=== PATIENT | male | born 1955 | race Caucasian/White ===

== ENCOUNTER 2016-11-14 11:19 | Inpatient (IN) ==
[~2016-11-14 11:19] MED LIST: ATROPINE SYRINGE IV ONE
--- NOTE | 2016-11-14 11:31 | ED EKG INTERP ---
EKG Interpretation - EKG Time of EKG reading by physician:: 11:27 EKG Read and Signed by:: Ananth Cabrera EKG Interpretation (*Must complete 3 of following elements*): Abnormal Rate: 100 Rhythm: NSR QRS: other (POSS LEFT ATRIAL ENLARGEMENT, NONSPECIFIC T WAVE ABNORMALITY, PROLONGED QT) Attestation - Scribe Verification/Attestation Scribe:: Idalia Antonio Acting as Scribe for:: Ananth Cabrera Scribe documention review:: This chart was documented by a scribe and accurately reflects the service the provider performed and the decisions made by the provider. Physician Attestation - Physician Attestation I, the provider, attest to the following statement:: Ananth Cabrera Physician documentation Attestation:: This documentation recorded by the scribe accurately reflects the service I personally performed and the decisions made by me.
[2016-11-14] MEDS ORDERED: DUONEB (A & A) INH ONE (12:17)
[2016-11-14 12:47] LABS: ALBUMIN 4.2 g/dL (3.5-5.0); POTASSIUM 4.5 mmol/L (3.5-5.1); TOTAL BILIRUBIN 1.42 mg/dL (0.20-1.00); TOTAL PROTEIN 7.6 g/dL (6.3-8.3)
[2016-11-14 12:48] LABS: BASO% 0.1 % (0.0-0.8); EOS% 0.7 % (0.0-10.0); HEMATOCRIT 34.8 % (42.0-52.0); HEMOGLOBIN 11.1 g/dL (14.0-18.0); IMM GRAN# 0.06 X1000 (0.0-0.04); IMM GRAN% 0.4 % (0.0-0.5); LYMPH# 0.75 X1000 (1.2-3.4); LYMPH% 5.4 % (20.5-51.1); MCH 27.7 PG (27-31); MCHC 31.9 g/dL (33-37); MCV 86.8 FL (81-99); MONO# 0.64 X1000 (0.11-0.59); MONO% 4.6 % (1.7-9.3); MPV 12.8 FL (7.4-10.4); NEUT% 88.8 % (42.2-75.2); PLT 202 X1000 (130-400); RBC 4.01 XMIL (4.7-6.1)
[2016-11-14 13:11] LABS: MANUAL DIFF NEEDED? NO
[2016-11-14] MEDS ORDERED: NITROGLYCERIN TOP ONE (13:26)
[2016-11-14] MEDS ORDERED: LASIX IV ONE ×2 (13:28→19:40)
--- NOTE | 2016-11-14 14:19 | PROVIDER DOCUMENTATION ---
HPI-General Adult - General Chief Complaint: Shortness of Breath Stated Complaint: SOB Time Seen by Provider: 11/14/16 11:54 Source: patient Allergies/Adverse Reactions: Patient Allergies Allergy/AdvReac Type Severity Reaction Status Date / Time lisinopril Allergy DIZZINESS Verified 11/14/16 12:07 lorazepam Allergy tachycardia Verified 11/14/16 12:07 morphine AdvReac Severe HOT AND Verified 11/14/16 12:07 FLUSHING aspirin AdvReac Mild BLEEDING Verified 11/14/16 12:07 atorvastatin calcium * AdvReac Mild DIARRHEA Verified 11/14/16 12:07 [From Lipitor] AND DIZZINESS carvedilol AdvReac Mild INCREASED Verified 11/14/16 12:07 HEART RATE codeine AdvReac NAUSEA/VOMI Verified 11/14/16 12:07 TING metformin AdvReac NAUSEA/VOMI Verified 11/14/16 12:07 TING sitagliptin phosphate * AdvReac FLUSHING Verified 11/14/16 12:07 [From Januvia] Home Medications: Hydrocodone/Acetaminophen [[place] 10-325 Tablet] 1 tab PO BID PRN PRN 11/17/15 Alprazolam [Xanax] 1 mg PO BID PRN PRN 05/14/16 Potassium Chloride E.r. [Klor-Con] 10 meq PO BID 05/14/16 Nitroglycerin [Nitrostat] 0.4 mg SL DIRECTED PRN 06/19/16 Prednisone 5 mg PO DAILY 06/19/16 Albuterol [Albuterol Neb] 1 puff INH Q8H PRN PRN 11/04/16 Metoprolol [Lopressor] 25 mg PO BID 11/14/16 - History of Present Illness -Gen Adult Nature of Presenting Problems: Recently discharged from hospital ( 11/09)where he was admitted for pneumonia , CHF, paroxysmal Atrial fibrillation. Tells me he was not on antibiotics after d/ c. Reports that metoprolol was increased when seen 11/12 in office and he began to have increasing shortness of breath after that . Location of Pain/Injury: reports: none Associated Symptoms: reports: cough (mild.) Similar Symptoms Previously?: Yes Review of Systems - Adult - REVIEW OF SYSTEMS - ADULT Constitutional: reports: see HPI. denies: chills, fever Eyes: reports: no symptoms reported Ears, Nose, Mouth & Throat: reports: no symptoms reported Cardiovascular: denies: chest pain Respiratory: reports: shortness of breath, wheezing Gastrointestinal: reports: no symptoms reported Genitourinary: reports: no symptoms reported Musculoskeletal: reports: no symptoms reported Integumentary: reports: no symptoms reported Neurological: reports: no symptoms reported Psychiatric: reports: no symptoms reported Past History - Adult - PAST MEDICAL HISTORY-ADULT Review of Records: reports: Old Records Reviewed, Nursing Assessment Review, Medications Reviewed Major Childhood Illnesses: reports: denies history Cardiovascular: reports: CHF, HTN, hyperlipidemia Respiratory: reports: sleep apnea Gastrointestinal: reports: GERD Genitourinary: reports: kidney disease Psychiatric: reports: anxiety, depression Endocrine/Immune: reports: Diabetes, thyroid disorder (hypothyroidism with TSH of 75 recent admit) Other Conditions: reports: denies history - PRIOR SURGERIES/PROCEDURES Surgical/Procedure History: reports: appendectomy, CABG, other (heart) - PRIOR HOSPITALIZATIONS Prior Hospitalizations: reports: for similar symptoms - IMMUNIZATION STATUS Childhood Immunizations: See Nurse Assessment Flu Vaccine: See Nurse Assessment - FAMILY HISTORY Family History: reviewed, not pertinent Physical Exam-General - PHYSICAL EXAM-ADULT Initial Vital Signs Reviewed: Yes - CONSTITUTIONAL General Appearance: alert, mild distress (mild increased work of breathing) - EYES Eyes: PERRL/EOMI - HEAD, EARS, NOSE, MOUTH & THROAT HENMT: normal ENT inspection, pharynx normal - NECK Neck: non-tender, full range of motion, supple, normal inspection - RESPIRATORY Respiratory: chest non-tender, wheezing (scattered expiratory wheezes) - CARDIOVASCULAR Cardiovascular: regular rate, rhythm, no JVD, no murmur - GASTROINTESTINAL (ABDOMEN) Abdominal Exam: normal bowel sounds, non tender, soft - GENITOURINARY Male Genitalia: deferred - LYMPHATIC Lymphatic: no adenopathy - MUSCULOSKELETAL Back Exam: normal inspection, no CVA tenderness Extremity: non-tender, normal inspection, no pedal edema - NEUROLOGIC Neurologic: grossly normal - PSYCHIATRIC Psych/Mental Status: normal mood/affect Progress - PLAN OF CARE/RESULTS Progress/Plan/Lab Results: Laboratory Tests 11/14/16 11/14/16 11/14/16 11:48 11:48 11:48 WBC 13.89 H RBC 4.01 L Hgb 11.1 L Hct 34.8 L MCV 86.8 MCH 27.7 MCHC 31.9 L RDW Std Deviation 18.5 H Plt Count 202 MPV 12.8 H Immature Gran % (Auto) 0.4 Neut % (Auto) 88.8 H Lymph % (Auto) 5.[address] [place] % (Auto) 4.6 Eos % (Auto) 0.7 Baso % (Auto) 0.1 Immature Gran # (Auto) 0.06 H Neut # (Auto) 12.32 H Lymph # (Auto) 0.[address] [place] # (Auto) 0.64 H Eos # (Auto) 0.10 Baso # (Auto) 0.02 Segmented Neutrophils Not Reportable Sodium 134 L Potassium 4.5 Chloride 100 Carbon Dioxide 20 L Anion Gap 14 BUN 36 H Creatinine 2.5 H Estimated GFR/1.73 m2 27 BUN/Creatinine Ratio 14 Glucose 218 H Calculated Osmolality 283 Calcium 9.0 Total Bilirubin 1.42 H AST 18 ALT 16 Alkaline Phosphatase 90 Troponin T Cgy-F-Irbizccgujn Pept 6781 H Total Protein 7.6 Albumin 4.2 Globulin 3.4 Albumin/Globulin Ratio 1.2 Plasma Lactate 11/14/16 11/14/16 11:48 12:50 WBC RBC Hgb Hct MCV MCH MCHC RDW Std Deviation Plt Count MPV Immature Gran % (Auto) Neut % (Auto) Lymph % (Auto) [place] % (Auto) Eos % (Auto) Baso % (Auto) Immature Gran # (Auto) Neut # (Auto) Lymph # (Auto) [place] # (Auto) Eos # (Auto) Baso # (Auto) Segmented Neutrophils Sodium Potassium Chloride Carbon Dioxide Anion Gap BUN Creatinine Estimated GFR/1.73 m2 BUN/Creatinine Ratio Glucose Calculated Osmolality Calcium Total Bilirubin AST ALT Alkaline Phosphatase Troponin T 0.017 Zqk-T-Pqanbedihov Pept Total Protein Albumin Globulin Albumin/Globulin Ratio Plasma Lactate 1.8 Vital Signs Temp Pulse Resp BP Pulse Ox 11/14/16 12:47 95 H 15 96 11/14/16 12:18 97 H 37 H 120/77 92 L 11/14/16 11:28 98.1 F 92 H 22 118/69 100 lisinopril Allergy (Verified 11/14/16 12:07) DIZZINESS lorazepam Allergy (Verified 11/14/16 12:07) tachycardia morphine Adverse Reaction (Severe, Verified 11/14/16 12:07) HOT AND FLUSHING aspirin Adverse Reaction (Mild, Verified 11/14/16 12:07) BLEEDING ONLY WHEN HE TAKES THE 325MG, STATES THAT HE CAN TAKE 81MG atorvastatin calcium * [From Lipitor] Adverse Reaction (Mild, Verified 11/14/16 12:07) DIARRHEA AND DIZZINESS carvedilol Adverse Reaction (Mild, Verified 11/14/16 12:07) INCREASED HEART RATE codeine Adverse Reaction (Verified 11/14/16 12:07) NAUSEA/VOMITING metformin Adverse Reaction (Verified 11/14/16 12:07) NAUSEA/VOMITING sitagliptin phosphate * [From Januvia] Adverse Reaction (Verified 11/14/16 12:07 ) FLUSHING Omeprazole [Prilosec] 20 mg PO DAILY@0700 #0 capsule 11/14/14 Hydrocodone/Acetaminophen [[place] 10-325 Tablet] 1 tab PO BID PRN PRN 11/17/15 Alprazolam [Xanax] 1 mg PO BID PRN PRN 05/14/16 Potassium Chloride E.r. [Klor-Con] 10 meq PO BID 05/14/16 Furosemide [Lasix] 40 mg PO BID #0 tablet 05/20/16 Nitroglycerin [Nitrostat] 0.4 mg SL DIRECTED PRN 06/19/16 Prednisone 5 mg PO DAILY 06/19/16 Spironolactone [Aldactone] 25 mg PO DAILY #0 tablet 06/24/16 Albuterol [Albuterol Neb] 1 puff INH Q8H PRN PRN 11/04/16 Levothyroxine [Synthroid] 100 microgm PO DAILY@0700 #0 tablet 11/09/16 Metoprolol [Lopressor] 25 mg PO BID 11/14/16 Laboratory 11/14/16 11/14/16 11/14/16 12:50 11:48 11:48 WBC RBC Hgb Hct MCV MCH MCHC RDW Std Deviation Plt Count MPV Immature Gran % (Auto) Neut % (Auto) Lymph % (Auto) [place] % (Auto) Eos % (Auto) Baso % (Auto) Immature Gran # (Auto) Neut # (Auto) Lymph # (Auto) [place] # (Auto) Eos # (Auto) Baso # (Auto) Segmented Neutrophils Sodium Potassium Chloride Carbon Dioxide Anion Gap BUN Creatinine Estimated GFR/1.73 m2 BUN/Creatinine Ratio Glucose Calculated Osmolality Calcium Total Bilirubin AST ALT Alkaline Phosphatase Troponin T 0.017 Fcg-S-Spaibpamhxr Pept 6781 H Total Protein Albumin Globulin Albumin/Globulin Ratio Plasma Lactate 1.8 11/14/16 11/14/16 11:48 11:48 WBC 13.89 H RBC 4.01 L Hgb 11.1 L Hct 34.8 L MCV 86.8 MCH 27.7 MCHC 31.9 L RDW Std Deviation 18.5 H Plt Count 202 MPV 12.8 H Immature Gran % (Auto) 0.4 Neut % (Auto) 88.8 H Lymph % (Auto) 5.[address] [place] % (Auto) 4.6 Eos % (Auto) 0.7 Baso % (Auto) 0.1 Immature Gran # (Auto) 0.06 H Neut # (Auto) 12.32 H Lymph # (Auto) 0.[address] [place] # (Auto) 0.64 H Eos # (Auto) 0.10 Baso # (Auto) 0.02 Segmented Neutrophils Not Reportable Sodium 134 L Potassium 4.5 Chloride 100 Carbon Dioxide 20 L Anion Gap 14 BUN 36 H Creatinine 2.5 H Estimated GFR/1.73 m2 27 BUN/Creatinine Ratio 14 Glucose 218 H Calculated Osmolality 283 Calcium 9.0 Total Bilirubin 1.42 H AST 18 ALT 16 Alkaline Phosphatase 90 Troponin T Wnb-A-Zhncrgcbynm Pept Total Protein 7.6 Albumin 4.2 Globulin 3.4 Albumin/Globulin Ratio 1.2 Plasma Lactate - XRAY 1 XRAY Study: Chest (B increased markings looks consistent with pulmonary edema, cannot r/o persistent pneumonia) - CONSULTS/PCP/HOSPITALIST Notification #1 *Consult/PCP/Hospitalist*: Dr Meier Time Discussed: 13:15 Consult Disposition: Admit - CHANGE OF SHIFT REPORT (ED Provider) Tentative Impression of Patient: CHF exaserbation Departure - Departure Time of Disposition Order: 13:15 DIAGNOSIS: Acute exacerbation of congestive heart failure Disposition: ADMITTED INPATIENT 09 Certified Medical Emergency: Emergent Condition: Fair
--- NOTE | 2016-11-14 15:07 | Diag Imaging Result Document ---
PROCEDURE NAME: CHEST-2 VIEWS - 11/14/2016 TWO VIEWS OF THE CHEST: FINDINGS: There is pulmonary edema which is worse in appearance particularly over the right lung than on 11/07/2016. There is cardiomegaly. There is pleural thickening versus loculated effusion laterally on the right. IMPRESSION: Worsened pulmonary edema.
[2016-11-14] MEDS ORDERED: NITROGLYCERIN SL PRN (19:40)
[2016-11-14] MEDS: KLOR-CON PO SCH (20:58)
[2016-11-14] MEDS: XANAX PO PRN (22:34)
[2016-11-14] MEDS: NORCO-7.5 PO PRN (22:34)
[2016-11-14] MEDS: ALBUTEROL NEB INH PRN (22:50)
--- NOTE | 2016-11-15 06:08 | EKG Report ---
Test Performed on : 11/14/2016 11:26:02 AM Test Reason : CP Blood Pressure : / mmHG Vent. Rate : 100 BPM Atrial Rate : 100 BPM P-R Int : 190 ms QRS Dur : 102 ms QT Int : 370 ms P-R-T Axes : 042 057 075 degrees QTc Int : 477 ms Normal sinus rhythm. Possible Left atrial enlargement Nonspecific T wave abnormality Prolonged QT Abnormal ECG When compared with ECG of 04-NOV-2016 18:05, No significant change was found Unconfirmed Result
[2016-11-15 06:16] LABS: MANUAL DIFF NEEDED? NO
[2016-11-15 06:20] LABS: BASO% 0.3 % (0.0-0.8); EOS# 0.25 X1000 (0.0-0.7); EOS% 2.4 % (0.0-10.0); HEMATOCRIT 33.8 % (42.0-52.0); HEMOGLOBIN 10.4 g/dL (14.0-18.0); IMM GRAN# 0.04 X1000 (0.0-0.04); IMM GRAN% 0.4 % (0.0-0.5); LYMPH# 1.58 X1000 (1.2-3.4); LYMPH% 15.1 % (20.5-51.1); MCHC 30.8 g/dL (33-37); MCV 87.8 FL (81-99); MONO% 4.8 % (1.7-9.3); MPV 12.1 FL (7.4-10.4); PLT 182 X1000 (130-400); RBC 3.85 XMIL (4.7-6.1)
[2016-11-15] MEDS: NORCO-7.5 PO PRN ×3 (06:36→22:53)
[2016-11-15] MEDS: SYNTHROID PO SCH (06:37)
[2016-11-15] MEDS: PRILOSEC PO SCH (06:37)
[2016-11-15 06:38] LABS: ALBUMIN 4.1 g/dL (3.5-5.0); CALCIUM 9.5 mg/dL (8.8-10.2); POTASSIUM 3.9 mmol/L (3.5-5.1); TOTAL BILIRUBIN 1.76 mg/dL (0.20-1.00); TOTAL PROTEIN 7.2 g/dL (6.3-8.3)
[2016-11-15] MEDS: ALBUTEROL NEB INH PRN ×3 (07:47→19:46)
[2016-11-15] MEDS: ALDACTONE PO SCH (09:26)
[2016-11-15] MEDS: PREDNISONE PO SCH (09:26)
[2016-11-15] MEDS: KLOR-CON PO SCH ×2 (09:26→20:18)
--- NOTE | 2016-11-15 09:27 | PROGRESS NOTE ---
DATE: 11/15/2016 The patient had for shortness of breath. He has acute exacerbation. He has some COPD, coronary artery disease, and has bronchitis, possible pneumonia. We will continue the IV antibiotics, continue the same management. He is wearing a Holter monitor. -6
[2016-11-15] MEDS: LEVAQUIN 500 MG/D5W 100 ML IV SCH (09:31)
--- NOTE | 2016-11-15 10:39 | HISTORY AND PHYSICAL ---
HISTORY: Mr. Yost who is a 61-year-old, white male with a known case of coronary artery disease who has gone into congestive heart failure, who has also intermittent atrial fibrillation and has recurrent pneumonia with mild COPD and hypothyroidism, he comes to the emergency room with severe shortness of breath, cough with expectoration. He was found to have an elevated white count on his CBC with anemia and had continuing renal failure. He had a persistent cough with expectoration and had bilateral basilar rales. A chest x-ray shows evidence of pulmonary edema. Hence, he was admitted for further management. Other details of personal, past, and family history are noncontributory, can be obtained from the previous chart. He has a history of coronary artery bypass surgery performed a little over 2 years ago. He had recurrent admissions here at [facility] for respiratory distress as well as chest pain and congestive heart failure. He is being evaluated by the coverstitch binder. He is a nonsmoker now. He does not drink. ALLERGIES: To lisinopril, lorazepam, morphine, aspirin, atorvastatin, and many other drugs. MEDICATIONS: Include levothyroxine 100 mcg, omeprazole, prednisone, potassium chloride, spironolactone, alprazolam, hydrocodone, nitroglycerin, albuterol inhaler, furosemide daily. REVIEW OF SYSTEMS: Other than shortness of breath and cough with expectoration, is noncontributory. PHYSICAL EXAMINATION: GENERAL: The patient is alert and oriented. VITAL SIGNS: Reveal temperature normal, pulse was 95 per minute and regular, respiratory rate 24 per minute, blood pressure 113/66. Temperature normal. HEENT: Head normocephalic. Pupils PERRLA. Fundus examination normal. Neck supple. JVP normal. ENT examination unremarkable. There is no evidence of lymphadenopathy, thyroid enlargement. EXTREMITIES: There is minimal leg edema. No calf tenderness. Pedal pulses well felt. BREAST EXAMINATION: Normal. CHEST: Reveals a midline scar from bypass surgery. Lungs reveal bilateral basal rales. PMI in the normal position. HEART: Sounds normal. No murmur, gallop, or rub noted. ABDOMEN: Nondistended. Hernial orifices normal. No guarding, rigidity, free fluid, masses, or organomegaly. Bowel sounds normal. RECTAL: Examination deferred. BI CONSULTANT: Higher functions normal. Cranial nerves normal. Motor and sensory system examination unremarkable. Deep tendon reflexes normal. Plantars downgoing. SKULL AND SPINE: Examination normal for age. No cerebellar signs or signs of meningeal irritation. LOCOMOTOR: Examination unremarkable. SKIN: Examination unremarkable. CLINICAL IMPRESSION: 1. Congestive heart failure. 2. Possible pneumonia. PLAN: Plan to get a cardiology consult. Start IV Levaquin on him.
[2016-11-15] MEDS ORDERED: LANOXIN PO SCH (11:15)
--- NOTE | 2016-11-15 12:02 | CONSULTATION ---
DATE OF CONSULTATION: 11/15/2016 HISTORY OF PRESENT ILLNESS: Mr. Yost is a 61-year-old, gentleman with a history of coronary artery disease, coronary artery bypass grafting in 2013, complicated by a LAD dissection intraoperatively with resultant ischemic cardiomyopathy. Last ejection fraction of 20-25%. Has had recurrent admissions with congestive heart failure. He was recently admitted with pneumonia. Patient is wearing a monitor and that has really revealed atrial flutter and supraventricular tachycardia, at times rates of 150-160 beats per minute. He has been tried on multiple medications in addition to amiodarone in the past. However, he has developed hyperthyroidism and he is not on that medication. He has had ventricular tachycardia in the past as well as paroxysmal atrial flutter/fibrillation. He comes in with increasing shortness of breath and palpitations. Patient was admitted with congestive heart failure. REVIEW OF SYSTEMS: A 14-point review of system was done. GI System: There is no history of nausea, vomiting, diarrhea. There is no history of hematemesis or melena. Central Nervous System: No focal weakness to suggest a CVA or TIA. System: There is no dysuria or hematuria. Respiratory System: There is no history of cough, expectoration, hemoptysis. There is no history of fevers or chills. PAST MEDICAL HISTORY: 1. Coronary artery disease, status post coronary artery bypass grafting in October of 2013 with GARRISON to left anterior descending artery, SVG to diagonal, SVG to RCA, subsequent dissection to the LAD. 2. Ischemic cardiomyopathy. 3. History of ventricular tachycardia. 4. Paroxysmal atrial flutter/fibrillation. 5. Congestive heart failure. Last ejection fraction of 20-25%. 6. Recurrent pneumonia. 7. Hypertension. 8. History of hyperthyroidism in the past, now hypothyroid on supplements. 9. A strong family history of coronary artery disease. Brother with MN at 34. Brother had stent placement at 58. 10. Gastroesophageal reflux disease. 11. Pleural effusions on 04/19/2016 with pneumonia and , large right pleural effusion at that time requiring drainage. 12. Depression. 13. Appendectomy. 14. Chronic renal insufficiency. 15. GI bleed in february 2016 significant external hemorrhoids HOME MEDICATIONS: Spironolactone, metoprolol, furosemide, potassium supplements , prednisone, Xanax. He is currently on Synthroid, Cozaar 25 mg a day. PHYSICAL EXAMINATION: Vital Signs: Blood pressure was 113/66. Cardiovascular System: Normal jugular venous pressure. There was no thyromegaly. There was no carotid bruit. First and second heart sounds heard. There was no S3 gallop. Respiratory System: Normal air entry. There were bilateral inspiratory crepitations. Abdomen: Soft, nontender. There was no guarding or rigidity. Bowel sounds were heard. Central Nervous System: Alert, oriented, and was moving all 4 extremities. Extremities: Examination of extremities revealed no pedal edema. HEENT: Atraumatic, normocephalic. Pupils were equal and reacting to light. LABORATORY EXAMINATIONS: Sodium 142, potassium 3.9, BUN 14, creatinine 2.3. ProBNP 6781. Last proBNP during recent hospitalization was 3000. Troponin negative as 0.017. ASSESSMENT AND PLAN: 1. Mr. Elva Yost is a 61-year-old, gentleman with a history of coronary artery disease, status post coronary artery bypass grafting, ischemic cardiomyopathy , paroxysmal atrial flutter/fibrillation, ventricular tachycardia in the past, hyperthyroidism - currently hypothyroid. He is admitted with congestive heart failure. He has had recurrent admissions with congestive heart failure as well as recurrent episodes of pneumonia in the last couple of years. As far as his ejection fraction is concerned, ejection fraction is 20 -25%. In addition, he is wearing a monitor and he has episodes of atrial flutter/ fibrillation going up to 150-160 beats per minute. He perceives these palpitations as well and has got recurrent episodes of heart failure. In the past, he was tried on valsartan/ saccubitril. However, he was intolerant to that. We will restart him on Cozaar 25 mg a day. 2. He has chronic renal insufficiency with a BUN of 40, creatinine 2.3. I will avoid digoxin at the present time. We will increase his Lopressor to 50 mg twice a day if he tolerates as far as blood pressure is concerned. 3. Recurrent atrial flutter. We will put him on Cardizem CD 180 mg for rate control. This is paroxysmal which he has and as an outpatient, we will set him up to see electrophysiology. 4. For stroke prophylaxis, he is not anticaogulated as in February 2016 he had signigicant gi bleed from hemoorhiods . Would recommeng GI work up 5. He is hypothyroid. In the past, has had hyperthyroidism. He had been on Tapazole in the past. We will check a TSH. 6. He has history of diabetes which has been stable. 7. His current electrocardiogram reveals normal sinus rhythm. Thank you for the consult. We will follow hospital course. ROBERTO
[2016-11-15] MEDS: COZAAR PO SCH (13:07)
[2016-11-15] MEDS: CARDIZEM CD PO SCH (13:07)
[2016-11-15] MEDS: XANAX PO PRN (18:12)
[2016-11-16] MEDS: NORCO-7.5 PO PRN ×3 (03:35→22:55)
[2016-11-16] MEDS: ALBUTEROL NEB INH PRN ×3 (03:38→20:09)
[2016-11-16] MEDS: XANAX PO PRN ×2 (06:01→19:50)
[2016-11-16] MEDS: SYNTHROID PO SCH (06:01)
[2016-11-16] MEDS: PRILOSEC PO SCH (06:01)
[2016-11-16 06:46] LABS: CALCIUM 9.6 mg/dL (8.8-10.2); POTASSIUM 4.1 mmol/L (3.5-5.1)
--- NOTE | 2016-11-16 09:19 | PROGRESS NOTE ---
DATE: 11/16/2016 SUBJECTIVE: Mr. Yost is feeling somewhat better. He is getting IV Lasix, IV antibiotics. He has CHF plus pneumonia. He is being seen by Dr. Coles. Physical exam is unchanged. He continues to have some basal rales at both lung bases. We are going to repeat his Chem-7 and chest x-ray in the morning.
[2016-11-16] MEDS: KLOR-CON PO SCH ×2 (10:04→19:50)
[2016-11-16] MEDS: COZAAR PO SCH (10:05)
[2016-11-16] MEDS: LEVAQUIN 500 MG/D5W 100 ML IV SCH (10:05)
[2016-11-16] MEDS: PREDNISONE PO SCH (10:05)
[2016-11-16] MEDS: ALDACTONE PO SCH (10:05)
[2016-11-16] MEDS: CARDIZEM CD PO SCH (10:05)
[2016-11-17] MEDS: KLOR-CON PO SCH ×3 (00:29→20:24)
[2016-11-17] MEDS: NORCO-7.5 PO PRN ×3 (05:43→22:55)
[2016-11-17] MEDS: ALBUTEROL NEB INH PRN ×4 (05:52→22:00)
[2016-11-17] MEDS: SYNTHROID PO SCH (06:11)
[2016-11-17] MEDS: PRILOSEC PO SCH (06:11)
[2016-11-17 06:41] LABS: MANUAL DIFF NEEDED? NO
[2016-11-17 06:50] LABS: BASO% 0.3 % (0.0-0.8); EOS# 0.34 X1000 (0.0-0.7); EOS% 3.1 % (0.0-10.0); HEMATOCRIT 33.7 % (42.0-52.0); HEMOGLOBIN 10.6 g/dL (14.0-18.0); IMM GRAN# 0.05 X1000 (0.0-0.04); IMM GRAN% 0.5 % (0.0-0.5); LYMPH# 1.94 X1000 (1.2-3.4); LYMPH% 17.6 % (20.5-51.1); MCH 27.9 PG (27-31); MCHC 31.5 g/dL (33-37); MCV 88.7 FL (81-99); MONO% 5.5 % (1.7-9.3); PLT 179 X1000 (130-400)
[2016-11-17 07:11] LABS: CALCIUM 9.6 mg/dL (8.8-10.2); POTASSIUM 4.2 mmol/L (3.5-5.1)
[2016-11-17] MEDS: ALDACTONE PO SCH (08:36)
[2016-11-17] MEDS: LEVAQUIN 500 MG/D5W 100 ML IV SCH (08:36)
[2016-11-17] MEDS: COZAAR PO SCH (08:37)
[2016-11-17] MEDS: PREDNISONE PO SCH (08:37)
[2016-11-17] MEDS: CARDIZEM CD PO SCH (08:37)
--- NOTE | 2016-11-17 08:41 | Diag Imaging Result Document ---
PROCEDURE NAME: CHEST-2 VIEWS - 11/17/2016 COMPARISON: 11/14/2016. FINDINGS: Interstitial edema appears to have improved slightly. There is stable linear atelectasis at the right lung base. Atelectasis versus fissural fluid at the right mid lung zone is unchanged. There is a stable loculated effusion at the periphery of the right lung versus pleural thickening. This is stable. No new consolidations are identified. Cardiac silhouette is stable. IMPRESSION: Suggestion of slight improvement of interstitial edema. Otherwise, stable chest.
--- NOTE | 2016-11-17 08:53 | PROGRESS NOTE ---
DATE: 11/17/2016 SUBJECTIVE: Mr. Yost had some pulmonary congestion again this morning. He was given Lasix earlier this morning and is getting it every day. His electrolytes status is stable. He had a chest x-ray done. He has gross congestive heart failure.
--- NOTE | 2016-11-17 08:53 | PROGRESS NOTE ---
DATE: 11/17/2016 SUBJECTIVE: Ms. Abraham was supposed to get a chest x-ray in the X-ray Department, and she refused to go there. She is getting a portable chest x-ray today. We will continue with the current management in the meantime. -5
[2016-11-17] MEDS: XANAX PO PRN ×2 (11:44→20:24)
[2016-11-17] MEDS: TOPROL XL PO SCH ×2 (16:42→20:24)
[2016-11-17] MEDS: LASIX IV SCH (18:12)
[2016-11-18] MEDS: NORCO-7.5 PO PRN ×2 (04:51→11:46)
[2016-11-18] MEDS: PRILOSEC PO SCH (06:20)
[2016-11-18] MEDS: SYNTHROID PO SCH (06:21)
[2016-11-18] MEDS: ALBUTEROL NEB INH PRN ×3 (06:24→15:21)
[2016-11-18] MEDS ORDERED: XANAX PO PRN (08:11)
--- NOTE | 2016-11-18 08:30 | PROGRESS NOTE ---
DATE: 11/18/2016 Mr. Yost is doing somewhat better. He is still very nervous. He thinks there is some problem with his bladder. He cannot urinate the right amount. He has done it only 1 time in the last more than 12 hours. His chest x-ray shows improvement. We will try to do the bladder scanning.
[2016-11-18] MEDS: COZAAR PO SCH (10:38)
[2016-11-18] MEDS: PREDNISONE PO SCH (10:38)
[2016-11-18] MEDS: KLOR-CON PO SCH (10:38)
[2016-11-18] MEDS: ALDACTONE PO SCH (10:38)
[2016-11-18] MEDS: LASIX IV SCH (10:38)
[2016-11-18] MEDS: TOPROL XL PO SCH ×2 (10:38→21:16)
[2016-11-18] MEDS: CARDIZEM CD PO SCH (10:39)
[2016-11-18] MEDS: LEVAQUIN 500 MG/D5W 100 ML IV SCH (10:49)
[2016-11-18 17:06] LABS: ALLEN TEST YES; BE -12.6 mmoll (-3.0-3.0); BLOOD TYPE ARTERIAL; DRAW SITE L RADIAL; METHB 1.6 % (0.0-1.5); O2(CT) 14.3 mL/dL (15.0-23.0); PCO2(98.6) 23 mmHg (35-45); PO2(98.6) 110 mmHg (60-100); SAMPLE BLOOD; SAO2 99.6 % (95.0-100.0); THB 10.5 g/dL (11.5-17.4); pH(98.6) 7.32 (7.35-7.45)
[2016-11-18 17:30] LABS: HEMATOCRIT 33.6 % (42.0-52.0); HEMOGLOBIN 10.3 g/dL (14.0-18.0); MCH 27.7 PG (27-31); MCHC 30.7 g/dL (33-37); MCV 90.3 FL (81-99); MPV 12.9 FL (7.4-10.4); RBC 3.72 XMIL (4.7-6.1)
[2016-11-18] MEDS ORDERED: NS 500 ML IV ONE (17:44)
[2016-11-18] MEDS ORDERED: NEO-SYNEPHRINE 50 MG in NS 250 ML IV SCH (17:45)
[2016-11-18 17:48] LABS: MODALITY CANNULA
[2016-11-18] MEDS ORDERED: D5W ONE (17:55)
[2016-11-18] MEDS ORDERED: DOPAMINE ONE (17:55)
[2016-11-18] MEDS ORDERED: DOPAMINE 400 MG/D5W 500 ML IV SCH (18:00)
[2016-11-18 18:17] LABS: ALBUMIN 4.4 g/dL (3.5-5.0); CALCIUM 8.9 mg/dL (8.8-10.2); MAGNESIUM 2.4 mg/dL (1.5-2.7); POTASSIUM 7.9 mmol/L (3.5-5.1); TOTAL BILIRUBIN 1.33 mg/dL (0.20-1.00); TOTAL PROTEIN 6.6 g/dL (6.3-8.3)
[2016-11-18] MEDS ORDERED: HUMULIN R ONE (18:17)
[2016-11-18] MEDS ORDERED: CALCIUM GLUCONATE ONE (18:17)
[2016-11-18] MEDS ORDERED: D50W SYRINGE IV ONE ×2 (18:17→23:00)
[2016-11-18] MEDS ORDERED: CALCIUM GLUCONATE IV PUSH ONE (18:17)
[2016-11-18] MEDS ORDERED: KAYEXALATE PO ONE (18:17)
[2016-11-18] MEDS ORDERED: HUMULIN R IV ONE ×2 (18:17→23:00)
[2016-11-18] MEDS ORDERED: D50W SYRINGE ONE (18:17)
[2016-11-18] MEDS ORDERED: ALBUTEROL NEB INH ONE ×3 (18:32→23:00)
[2016-11-18] MEDS ORDERED: SOLU-MEDROL IV ONE (18:38)
[2016-11-18] MEDS ORDERED: DIPRIVAN 1% ONE (18:49)
[2016-11-18] MEDS ORDERED: DIPRIVAN 1% 100 ML IV ONE (18:49)
[2016-11-18] MEDS: NS 1,000 ML ONE ×2 (18:51→18:57)
[2016-11-18] MEDS ORDERED: SODIUM BICARBONATE 8.4% IV ONE (19:00)
[2016-11-18] MEDS ORDERED: ATROPINE SYRINGE IV ONE (19:00)
[2016-11-18] MEDS ORDERED: ROCEPHIN 1 GM/NS 50 ML IV SCH (19:00)
[2016-11-18] MEDS ORDERED: VANCOMYCIN IV PER PHARMACY MISC SCH (19:15)
[2016-11-18] MEDS: ALBUTEROL 0.5% INH CONC FOR HYPERKALEMIA ONE ×2 (19:20→23:42)
[2016-11-18 19:27] LABS: CALCIUM 8.7 mg/dL (8.8-10.2); POTASSIUM 6.8 mmol/L (3.5-5.1)
[2016-11-18] MEDS: DOPAMINE 800 MG/D5W 500 ML IV SCH (19:30)
[2016-11-18] MEDS ORDERED: DIPRIVAN 1% 100 ML IV SCH (19:30)
--- NOTE | 2016-11-18 19:48 | PROGRESS NOTE ---
DATE: 11/18/2016 SUBJECTIVE: Mr. Yost is not doing well. The patient was bradycardic on the floor. Nurse called me. They had to call call. Patient was evaluated. Patient was bradycardic. He was complaining of some chest pain. The patient was diaphoretic. Patient also has pain in the lower back. The patient does have a strong history of coronary artery disease, congestive heart failure. The patient was acutely ill. We transferred patient to ICU. In the ICU his blood pressure was low. We gave him a fluid challenge. I recommended Federico- Synephrine. A nurse talked to his emergency service restorer who recommended dopamine. The patient was bradycardic. When I evaluated, he was complaining of pain in the lower back. The patient was minimally short of breath, but O2 saturation was satisfactory. The patient was bradycardic. Patient is on Cardizem and beta chandu. I ordered a blood test and we did EKG. OBJECTIVE: Vital Signs: Noted. Blood pressure was low. Neck: Supple. No JVD. Lungs: Bibasilar crepitations. A few rales. Cardiovascular: S1 and S2, bradycardia. Abdomen: Soft, globular. Bowel sounds present. Patient does have a few bruise calvillo at the site of Lovenox injection. Extremities: No cyanosis, clubbing. Minimal swelling. No acute DVT. The patient was alert, awake, answering questions fair. LABORATORY DATA: Revealed sodium 125, potassium 7.9, chloride 91, CO2 was 14, blood sugar was 413. ProBNP was 11,754, leukocytosis count was 19.16, hemoglobin 10.3, hematocrit 33.6, platelet count 269,000. Blood gas done, pH 7.32, pCO2 23, PO2 110. Troponin was 0.03. We maxed out on dopamine. The patient was getting fluid. The patient being on prednisone so I gave him a stress dose of Solu-Medrol, started him on antibiotics. Patient was getting tired and we intubated the patient. The patient overall prognosis is poor. His condition and prognosis discussed with his family at length and I consulted Dr. Hare, field service specialist. He is going to evaluate the patient. I also consulted Dr. Musa. We gave him calcium gluconate, D50 and insulin, albuterol nebulizer treatment. The patient problems includes respiratory failure, acute on chronic kidney disease, hyperkalemia, hypotension, pulmonary edema. PLAN: IV antibiotics, IV steroid, gastrointestinal prophylaxis, respiratory support. Overall prognosis guarded. Family is aware of prognosis. this was critical care time 60 minutes ROBERTO
[2016-11-18] MEDS: LEVOPHED 8 MG in D5 1/2 NS 250 ML IV SCH (20:00)
[2016-11-18 20:04] LABS: URINE CULTURE NEEDED? NO; URINE MICRO REVIEW NEEDED? NO; URINE SOURCE CATH
[2016-11-18 20:07] LABS: BILIRUBIN URINE NEGATIVE (NEGATIVE); BLOOD URINE NEGATIVE (NEGATIVE); COLOR YELLOW; GLUCOSE URINE NEGATIVE (NEGATIVE); LEUKOCYTES URINE NEGATIVE (NEGATIVE); NITRITE URINE NEGATIVE (NEGATIVE); PROTEIN URINE NEGATIVE (NEGATIVE); SP GRAVITY URINE 1.017; TURBIDITY URINE CLEAR (CLEAR); UROBILINOGEN URINE NORMAL (NORMAL)
[2016-11-18 20:09] LABS: UR EPITHELIAL CELLS <10 /HPF (<10); URINE BACTERIA NEGATIVE /HPF; URINE RBC <10 /HPF (<10); URINE WBC <10 /HPF (<10)
[2016-11-18] MEDS ORDERED: CALCIUM GLUCONATE 1 GM in NS 50 ML IV ONE (20:13)
[2016-11-18] MEDS ORDERED: ATROPINE IV ONE (20:21)
[2016-11-18 20:52] LABS: ALLEN TEST YES; BE -12.8 mmoll (-3.0-3.0); BLOOD TYPE ARTERIAL; DRAW SITE R RADIAL; METHB 0.7 % (0.0-1.5); O2(CT) 12.9 mL/dL (15.0-23.0); PCO2(98.6) 38 mmHg (35-45); PO2(98.6) 70 mmHg (60-100); SAMPLE BLOOD; SAO2 95.2 % (95.0-100.0); SRATE 30 BPM; TVOL 490 mL
[2016-11-18 20:53] LABS: MODALITY VENTILATOR
[2016-11-18 20:54] LABS: pH(98.6) 7.19 (7.35-7.45)
[2016-11-18] MEDS ORDERED: SODIUM BICARBONATE 8.4% IV PUSH ONE (20:55)
[2016-11-18] MEDS: DIPRIVAN 1% 100 ML IV SCH (21:01)
[2016-11-18] MEDS: HUMALOG SUBQ SCH (21:14)
[2016-11-18] MEDS ORDERED: NS 500 ML ONE (21:24)
[2016-11-18] MEDS ORDERED: ZOSYN 4.5 GM/NS 100 ML IV ONE (21:36)
[2016-11-18] MEDS ORDERED: VANCOMYCIN 2 GM in NS 500 ML IV ONE (22:00)
[2016-11-18 22:04] LABS: ALBUMIN 3.8 g/dL (3.5-5.0); TOTAL BILIRUBIN 2.68 mg/dL (0.20-1.00); TOTAL PROTEIN 6.5 g/dL (6.3-8.3)
[2016-11-18 22:06] LABS: POTASSIUM 6.9 mmol/L (3.5-5.1)
--- NOTE | 2016-11-18 22:22 | OPERATIVE NOTE ---
PROCEDURE DATE: 11/18/2016 PROCEDURE PERFORMED: Right subclavian central line placement. CLINICAL INDICATIONS: Critically ill patient with respiratory failure and shock. DETAILS OF OPERATION: After informed consent was obtained from the family, the right subclavian vein was prepped and draped in the usual sterile fashion. The right subclavian vein was identified with the 1st pass of the introducer needle. Wire was advanced through the needle without difficulty. Site was dilated with a plastic dilator. A triple-lumen catheter was advanced over the wire and sutured into position. There was good blood return from all 3 ports. Postprocedure chest x-ray revealed the central line to be in good position.
[2016-11-18] MEDS: NS 500 ML IV SCH ×2 (22:29→22:43)
--- NOTE | 2016-11-18 22:35 | CONSULTATION ---
DATE OF CONSULTATION: 11/18/2016 PULMONARY CONSULTATION REQUESTING PHYSICIAN: Hugo Ryan M.D. REASON FOR CONSULTATION: Respiratory failure and shock. HISTORY OF PRESENT ILLNESS: Mr. Yost is a 61-year-old, white male with severe ischemic cardiomyopathy, recurrent admissions to the hospital with pneumonia and heart failure, who was admitted to the hospital on 11/15/2016 with pulmonary edema, shortness of breath. Possibility of pneumonia remains in the differential and he was initiated on antibiotics. The patient was evaluated by Cardiology. He was having clinical improvement and discharge plans were being made. This afternoon, he developed chest pain, diaphoresis, shortness of breath and bradycardia. Potassium was elevated at 7.9. He was significantly bradycardic. He became obtunded and was subsequently intubated. He is significantly hypothermic and his rectal temperature is 93.8 degrees. PAST MEDICAL HISTORY: 1. Ischemic cardiomyopathy with prior bypass grafting. 2. Cryptogenic organizing pneumonia on transbronchial biopsy in April 2016. 3. Amiodarone-induced hyperthyroidism. Patient currently is hypothyroid and on replacement therapy. 4. Diabetes mellitus. 5. History of pancreatic phlegmon with pancreatitis. 6. Status post appendectomy. 7. Chronic renal insufficiency. 8. Chronic back pain. 9. Anxiety/depressive disorder. 10. Paroxysmal atrial fibrillation. 11. Dyslipidemia. SOCIAL HISTORY: No alcohol use. He is a never smoker. He lives in [place] and is disabled from his severe cardiomyopathy. FAMILY HISTORY: Positive for hypertension, lung cancer and coronary artery disease. REVIEW OF SYSTEMS: Cannot be obtained. PHYSICAL EXAMINATION: General: Reveals a chronically ill-appearing, white male, who appears much older than his stated age. Vital Signs: Blood pressure on both dopamine and Levophed is reduced at 91/50. Heart rate 47 and regular. Respiratory rate set at 32 on mechanical ventilation. Oxygen saturation 96%. HEENT: Pupils are equal and sluggish. Oropharynx evaluation appears benign but obscured by endotracheal tube. Neck: Supple. Chest: Reveals coarse rhonchi bilaterally. Cardiac Examination: Decreased rate, regular rhythm with 2/6 systolic ejection murmur right upper sternal border. Abdomen: Obese and soft. Extremities: Cool to the touch. LABORATORIES: Central line was placed and a CVP is between 15 and 16. Chest x-ray reveals central line in good position without evidence of pneumothorax. There is vascular congestion with diffuse pulmonary edema. Sodium 125, potassium 6.8, chloride 90, bicarbonate 14, anion gap 21, BUN 70, creatinine 4.1, glucose 491. Arterial blood gas reveals a pH 7.19, pCO2 of 38, PO2 of 70, with a lactate of 2.3. White blood count 19.2, hemoglobin 10.3, platelet count 269,000. IMPRESSION: A 61-year-old with end-stage cardiomyopathy, recurrent pulmonary edema, recurrent pneumonia, who developed chest pain and acute cardiogenic shock. Infection is in the differential but with presentation decreased cardiac output related to decreased pump function appears more likely. With septic shock, It would be suspected that a CVP would have markedly declined with peripheral vasodilation. The patient has acute hypoxemic respiratory failure, cardiogenic pulmonary edema, altered mental status, acute on chronic renal failure, hyperkalemia, severe metabolic acidosis, and moderate bradycardia. Overall his prognosis is poor but according to the nursing notes the family wants aggressive interventions. RECOMMENDATIONS: 1. Continue ventilatory support. We will utilize a rapid respiratory rate/increased ventilation in an attempt to augment cardiac output and decrease metabolic acidosis. 2. Central line placement. (this task has already been completed with good line placement). 3. CVP monitoring. 4. Medications for hyperkalemia. 5. Cardiogenic shock. Medications as per Cardiology. 6. Hyperkalemia. Treatments as per Nephrology. 7. Agree with broad-spectrum antibiotics.
[2016-11-18] MEDS: PROTONIX IV SCH (22:46)
[2016-11-18] MEDS: SODIUM CHLORIDE 0.9% INJ SCH (22:47)
[2016-11-18] MEDS: SODIUM BICARBONATE 8.4% IV PUSH SCH (23:19)
[2016-11-19] MEDS: DIPRIVAN 1% 100 ML IV SCH ×11 (00:29→22:30)
[2016-11-19] MEDS: LEVOPHED 8 MG in D5 1/2 NS 250 ML IV SCH ×4 (00:31→19:48)
[2016-11-19] MEDS: HUMALOG SUBQ SCH ×3 (01:48→09:09)
[2016-11-19] MEDS: DOPAMINE 800 MG/D5W 500 ML IV SCH ×4 (01:59→20:39)
[2016-11-19] MEDS: SODIUM BICARBONATE 8.4% IV PUSH SCH ×2 (02:46→04:33)
[2016-11-19] MEDS: SOLU-MEDROL IV SCH ×3 (03:23→22:28)
[2016-11-19] MEDS: ZOSYN 2.25 GM/NS 50 ML IV SCH ×4 (03:31→22:28)
[2016-11-19] MEDS: ALBUTEROL NEB INH PRN (04:05)
[2016-11-19 04:31] LABS: ALLEN TEST YES; BE -11.4 mmoll (-3.0-3.0); BLOOD TYPE ARTERIAL; DRAW SITE R RADIAL; METHB 1.9 % (0.0-1.5); O2(CT) 14.5 mL/dL (15.0-23.0); PO2(98.6) 132 mmHg (60-100); SAMPLE BLOOD; SAO2 99.8 % (95.0-100.0); SRATE 32 BPM; THB 10.6 g/dL (11.5-17.4); TVOL 490 mL
[2016-11-19 04:33] LABS: MODALITY VENTILATOR; PCO2(98.6) 59 mmHg (35-45)
--- NOTE | 2016-11-19 05:31 | EKG Report ---
Test Performed on : 11/18/2016 4:43:57 PM Test Reason : chest pain Blood Pressure : / mmHG Vent. Rate : 041 BPM Atrial Rate : 234 BPM P-R Int : 000 ms QRS Dur : 170 ms QT Int : 572 ms P-R-T Axes : 000 084 178 degrees QTc Int : 471 ms Junctional bradycardia. with junctional escape Left bundle branch block Abnormal ECG When compared with ECG of 18-NOV-2016 16:28, (Unconfirmed) Nonspecific T wave abnormality now evident in Inferior leads Confirmed by Jeff Morales DO ([id number]) on 11/21/2016 3:31:54 PM
[2016-11-19 05:46] LABS: BASO% 0.2 % (0.0-0.8); EOS# 0.02 X1000 (0.0-0.7); EOS% 0.1 % (0.0-10.0); HEMATOCRIT 33.2 % (42.0-52.0); HEMOGLOBIN 10.4 g/dL (14.0-18.0); IMM GRAN# 0.72 X1000 (0.0-0.04); IMM GRAN% 2.6 % (0.0-0.5); LYMPH# 0.94 X1000 (1.2-3.4); LYMPH% 3.4 % (20.5-51.1); MANUAL DIFF NEEDED? YES; MCH 27.4 PG (27-31); MCHC 31.3 g/dL (33-37); MCV 87.6 FL (81-99); MONO# 1.19 X1000 (0.11-0.59); MONO% 4.3 % (1.7-9.3); MPV 13.5 FL (7.4-10.4); NEUT% 89.4 % (42.2-75.2); PLT 268 X1000 (130-400); RBC 3.79 XMIL (4.7-6.1)
[2016-11-19 05:54] LABS: LYMPHS 4 % (21-51); MONO 6 % (1-9)
[2016-11-19 06:10] LABS: MAGNESIUM 2.2 mg/dL (1.5-2.7)
[2016-11-19 06:50] LABS: ALBUMIN 3.7 g/dL (3.5-5.0); CALCIUM 8.5 mg/dL (8.8-10.2); POTASSIUM 4.4 mmol/L (3.5-5.1); TOTAL BILIRUBIN 3.41 mg/dL (0.20-1.00); TOTAL PROTEIN 6.6 g/dL (6.3-8.3)
--- NOTE | 2016-11-19 08:41 | Diag Imaging Result Document ---
PROCEDURE NAME: CHEST-PORTABLE - 11/18/2016 PORTABLE CHEST X-RAY AT 2140 HOURS: COMPARISON: 1905 hours. FINDINGS: There is a new right subclavian central line in good position. Stable endotracheal tube in good position. There is worsening diffuse bilateral alveolar infiltrates. Stable cardiomegaly. IMPRESSION: No complication from line placement. Severe worsening in the diffuse bilateral infiltrates.
--- NOTE | 2016-11-19 08:46 | Diag Imaging Result Document ---
PROCEDURE NAME: CHEST-PORTABLE - 11/18/2016 PORTABLE CHEST X-RAY: COMPARISON: 11/17/2016. FINDINGS: Lung volumes are much lower, now critically low. There is probably stable cardiomegaly and bilateral atelectasis or infiltrates. Probably stable pleural effusions as well. IMPRESSION: Much lower lung volumes. Otherwise, no definite change from prior.
--- NOTE | 2016-11-19 08:56 | Diag Imaging Result Document ---
PROCEDURE NAME: CHEST-PORTABLE - 11/18/2016 PORTABLE CHEST X-RAY AT 1905 HOURS: COMPARISON: 1725 hours. FINDINGS: There is a new endotracheal tube in good position at about T3. Lung volumes are improved but still very low. There is worsening infiltrate particularly in the right upper lobe. There is cardiomegaly. There are pleural effusions. IMPRESSION: Successful intubation. Worsening right upper lobe infiltrate.
[2016-11-19] MEDS: LASIX IV SCH (09:08)
[2016-11-19] MEDS: TOPROL XL PO SCH ×2 (09:11→22:29)
[2016-11-19] MEDS: CARDIZEM CD PO SCH (09:12)
[2016-11-19] MEDS: SYNTHROID PO SCH (09:12)
--- NOTE | 2016-11-19 09:18 | Diag Imaging Result Document ---
PROCEDURE NAME: CHEST-PORTABLE - 11/19/2016 PORTABLE CHEST X-RAY 11/19/2016 AT 0500 HOURS: COMPARISON: 11/18/2016. FINDINGS: Stable endotracheal tube and right central line. Stable cardiomegaly. Stable dense bilateral alveolar infiltrates. There are pleural effusions as well. IMPRESSION: No obvious change from prior.
[2016-11-19] MEDS ORDERED: SODIUM CHLORIDE 0.9% INJ PRN (09:27)
[2016-11-19 09:51] LABS: URINE SOURCE CATH
[2016-11-19 09:53] LABS: BILIRUBIN URINE NEGATIVE (NEGATIVE); BLOOD URINE NEGATIVE (NEGATIVE); COLOR YELLOW; GLUCOSE URINE 150 mg/dL (NEGATIVE); LEUKOCYTES URINE NEGATIVE (NEGATIVE); NITRITE URINE NEGATIVE (NEGATIVE); PROTEIN URINE TRACE mg/dL (NEGATIVE); SP GRAVITY URINE 1.015; TURBIDITY URINE TURBID (CLEAR); UROBILINOGEN URINE NORMAL (NORMAL)
[2016-11-19 09:55] LABS: URINE MICRO REVIEW NEEDED? YES
[2016-11-19 09:57] LABS: UR EPITHELIAL CELLS >10 /HPF (<10); URINE BACTERIA NEGATIVE /HPF; URINE RBC 20-40 /HPF (<10)
[2016-11-19 10:01] LABS: URINE CASTS NONE SEEN
[2016-11-19 10:02] LABS: URINE CRYSTALS NONE SEEN; URINE SMALL ROUND CELLS NONE SEEN
[2016-11-19] MEDS: HUMULIN R 100 UNIT in NS 100 ML IV SCH ×2 (10:15→20:36)
--- NOTE | 2016-11-19 10:30 | PROGRESS NOTE ---
DATE: 11/19/2016 SUBJECTIVE: The patient is in ICU 11. He is a 61-year-old white gentleman with known case of severe coronary artery disease with ischemic cardiomyopathy, who had CHF and bilateral pneumonia, went into acute respiratory failure. He is on the vent at the present time with propofol. He is hypotensive and has been on Levophed as well as dopamine and has been on IV piperacillin. OBJECTIVE: Vital signs are stable at present. O2 saturation is around 90%. DIAGNOSTIC DATA: CBC showed a white count of 27.45 this morning, hemoglobin 10.4. ABGs continue to show drop in the pH at 7.10, pCO2 was 59. Chemistry showed blood sugar was 477. Urinalysis was negative. Acetone level is negative. ASSESSMENT AND PLAN: He is on IV vancomycin as well as piperacillin Overall condition is poor. We will continue with the current management.
--- NOTE | 2016-11-19 13:04 | CONSULTATION ---
DATE OF CONSULTATION: 11/19/2016 REASON FOR CONSULTATION: Hyperkalemia and chronic kidney disease. ATTENDING PHYSICIAN: Dr. Aviles. CONSULTING PHYSICIAN: Dr. Ryan who contacted me by phone last evening. HISTORY OF PRESENT ILLNESS: Obtained entirely from Dr. Ryan and from the chart as the patient is currently intubated. Mr. Yost is a 61-year-old white male that we have seen in consultation earlier this month. He has chronic kidney disease with minimal proteinuria and measured creatinine clearance of 60 with baseline creatinine of around 2.5. His creatinine was 2.4 at the time of his discharge on the and 2.5 on return on the . His creatinine has ranged between 2 and 2.5 until yesterday. His labs were not collected in the morning of the . He had an episode of decompensation later in the day with altered sensorium, disorientation, hypotension. Labs collected at that time found marked hyperkalemia with potassium of 7.9 and an abrupt rise in his creatinine to 4.1. He did not have ST-T wave abnormalities that suggested hyperkalemic change. Specifically, he did have bradycardia with atrial fibrillation. No peaked T-waves. However his QRS duration was significantly longer than his baseline at 170 milliseconds compared to previous of 102 milliseconds. He was treated medically for his hyperkalemia because he was hemodynamically unstable. He received IV insulin and D50, IV calcium, inhaled albuterol high- dose. With this treatment his potassium improved progressively overnight from 7.9-4.4 this morning. He also received a single dose of Kayexalate. His urine output has remained acceptable. PAST MEDICAL HISTORY: 1. Chronic kidney disease as above. 2. Ischemic cardiomyopathy. 3. Hyperthyroidism related to amiodarone. 4. Diabetes. 5. Hyperlipidemia. 6. Cryptogenic organizing pneumonia April 2016. SOCIAL HISTORY: No alcohol or tobacco. She lives in [place] and is disabled related to his heart. FAMILY HISTORY/REVIEW OF SYSTEMS: Otherwise not obtainable aside from what is listed in the notes.Vital Signs: Blood pressure 100/59, heart rate 95, respirations 33, afebrile. Intake 3.7 L. Output 1.1 L. General: On physical exam, sedated on the ventilator unresponsive. Skin: Warm and moist. HEENT: Pupils are equal. Conjunctivae are pink. Oropharynx is dry. Neck: Neck veins are not visible. Heart: Irregular with a gallop. Lungs: Have equal breath sounds. No crackles. Abdomen: Soft, nontender. Bowel sounds are present. No organomegaly or masses. Extremities: Have trace edema. No clubbing or cyanosis. Neurologic Exam: Grossly nonfocal. LABORATORY DATA: Sodium 133, potassium 4.4, chloride 92, bicarbonate 16, BUN 73, creatinine 4.2. IMPRESSION: 1. Acute kidney injury. Inciting event is not clear to me. May be related to hypotension. At any rate, his blood pressure is improved and his urine output is improved and his creatinine has stabilized. Observe. No further testing at this time. 2. Hyperkalemia. Much better this morning and his cardiac symptoms are resolved. I will monitor his potassium through the day today. The etiology of his abrupt acute hyperkalemia is not obvious to me. Certainly could have DKA though his anion gap is only 14 at the time that this problem manifested. No evidence of GI bleeding thus far. We will check his stool for Hemoccult.
--- NOTE | 2016-11-19 16:11 | ECHO REPORT ---
ORDER DATE: 11/19/2016 INTERPRETING PHYSICIAN: Dr. Abbe Coles ECHOCARDIOGRAPHIC MEASUREMENTS: Interventricular septum: 1.0 cm. Left ventricular posterior wall: 1.0 cm. Left ventricular diastolic diameter: 6 cm. Left atrium: 4.7 cm. Aortic root: 3.4 cm. SUMMARY OF THE 2-DIMENSIONAL IMAGIN. Dilated left ventricle with severely reduced systolic function. Estimated ejection fraction of 25%. There is global hypokinesis. 2. Aortic valve leaflets are trileaflet. Mitral valve was normal. Tricuspid valve was normal. Pulmonic valve was normal. There is biatrial enlargement. 3. Peak velocity across the aortic valve was 2 m/sec. There is no aortic stenosis or regurgitation. There is mild mitral regurgitation. Mild tricuspid regurgitation. Peak velocity across the tricuspid valve was 2.7 m/sec. Pulmonary artery systolic pressure 40 mmHg. There is mild pulmonary regurgitation. 4. There is no pericardial effusion or obvious intracardiac mass or thrombus seen.
[2016-11-19 17:19] LABS: HEMATOCRIT 32.3 % (42.0-52.0); HEMOGLOBIN 10.1 g/dL (14.0-18.0); MCH 27.3 PG (27-31); MCHC 31.3 g/dL (33-37); MCV 87.3 FL (81-99); RBC 3.7 XMIL (4.7-6.1)
[2016-11-19] MEDS: PROTONIX IV SCH (19:32)
[2016-11-19] MEDS: SODIUM CHLORIDE 0.9% INJ SCH (19:32)
[2016-11-19] MEDS: NS 500 ML IV SCH (22:29)
[2016-11-20] MEDS: DIPRIVAN 1% 100 ML IV SCH ×13 (00:43→23:51)
[2016-11-20] MEDS: HUMULIN R 100 UNIT in NS 100 ML IV SCH ×2 (02:32→11:28)
[2016-11-20] MEDS ORDERED: D50W SYRINGE IV SCH (03:20)
[2016-11-20] MEDS ORDERED: D50W SYRINGE ONE (03:29)
[2016-11-20] MEDS: ZOSYN 2.25 GM/NS 50 ML IV SCH ×4 (04:24→23:21)
[2016-11-20] MEDS: DOPAMINE 800 MG/D5W 500 ML IV SCH (04:39)
[2016-11-20] MEDS: LEVOPHED 8 MG in D5 1/2 NS 250 ML IV SCH ×3 (04:41→21:37)
[2016-11-20 04:55] LABS: ALLEN TEST YES; BE 1.7 mmoll (-3.0-3.0); BLOOD TYPE ARTERIAL; DRAW SITE R RADIAL; METHB 2.2 % (0.0-1.5); O2(CT) 13.4 mL/dL (15.0-23.0); PCO2(98.6) 37 mmHg (35-45); PO2(98.6) 152 mmHg (60-100); SAMPLE BLOOD; SRATE 32 BPM; THB 9.7 g/dL (11.5-17.4); TVOL 490 mL; pH(98.6) 7.45 (7.35-7.45)
[2016-11-20 04:56] LABS: MODALITY VENTILATOR
[2016-11-20 05:07] LABS: HEMATOCRIT 31.1 % (42.0-52.0); MCH 27.9 PG (27-31); MCHC 32.2 g/dL (33-37); MCV 86.6 FL (81-99); MPV 12.6 FL (7.4-10.4); RBC 3.59 XMIL (4.7-6.1)
[2016-11-20 05:41] LABS: ALBUMIN 3.4 g/dL (3.5-5.0); CALCIUM 9.8 mg/dL (8.8-10.2); POTASSIUM 3.9 mmol/L (3.5-5.1); TOTAL BILIRUBIN 0.93 mg/dL (0.20-1.00); TOTAL PROTEIN 6.3 g/dL (6.3-8.3)
--- NOTE | 2016-11-20 06:33 | Diag Imaging Result Document ---
PROCEDURE NAME: CHEST-PORTABLE - 11/20/2016 PORTABLE CHEST: COMPARISON: 11/19/2016. FINDINGS: The endotracheal tube remains in good position. No change in the right subclavian line. No pneumothorax. The heart remains enlarged. There are bilateral infiltrates fairly similar to the prior exam. There are small pleural effusions. IMPRESSION: No interval improvement.
[2016-11-20] MEDS: SYNTHROID IV SCH (07:21)
[2016-11-20] MEDS: LASIX IV SCH (08:13)
--- NOTE | 2016-11-20 09:54 | PROGRESS NOTE ---
DATE: 11/20/2016 SUBJECTIVE: Mr. Yost is continuing to depend on the vent. He is getting the same medications. OBJECTIVE: We are changing the dopamine Levophed to some extent. His electrolytes are stable now. Potassium has come down to 3.9; however, BUN is 56, creatinine 3.2. Liver enzymes are getting better. They are markedly elevated. Amylase has not been done this morning; however, his amylase went up to 1000 and blood sugar is somewhat stable now with insulin drip. Overall condition may still be unchanged. I discussed his case with his daughter yesterday. She understands the poor prognosis and the seriousness of the illness. His acetone levels are negative. We will continue to watch him closely in ICU.
--- NOTE | 2016-11-20 11:31 | PROGRESS NOTE ---
DATE: 11/20/2016 SUBJECTIVE: He is sedated on the ventilator. OBJECTIVE: Vital Signs: Blood pressure 108/60, heart rate 119, respirations 32. Afebrile. Intake 4.1 L. Output 6.2 L. Physical exam: Sedated on the vent. No distress. Skin: Warm and dry. HEENT: Conjunctivae are pink. Somewhat edematous. Pupils are equal. Neck: Neck veins are not visible. Heart: Regular and tachycardic. Lungs: Have equal breath sounds. No crackles. Abdomen: Soft, nontender. Bowel sounds are present. Extremities: Minimal edema. No clubbing or cyanosis. LABORATORY DATA: Sodium 141, potassium 3.9, chloride 102, bicarbonate 24, BUN 56, and creatinine 3.2. Hemoglobin 10.0. IMPRESSION: 1. Acute kidney injury overlying chronic kidney disease. Baseline creatinine is approximately 2. His creatinine improved from 4.2-3.2 overnight. Excellent urine output. 2. Hyperkalemia resolved. 3. Metabolic acidosis improved.
[2016-11-20] MEDS ORDERED: SOLU-MEDROL IV SCH (12:00)
[2016-11-20] MEDS: SOLU-MEDROL IV SCH ×2 (12:14→23:22)
[2016-11-20] MEDS: CARDIZEM CD PO SCH (13:33)
[2016-11-20] MEDS: TOPROL XL PO SCH ×2 (13:34→21:39)
--- NOTE | 2016-11-20 14:03 | PROGRESS NOTE ---
DATE: 11/20/2016 SUBJECTIVE: Mr. Yost is currently on the ventricular. He is on pressors in the form of Levophed and dopamine. He is not responsive. PHYSICAL EXAMINATION: Vital signs: He has been afebrile over the last 24 hours. His heart rates seem to be in the low 100s to 110s. His systolic blood pressure is 108. General: No acute distress. Again, not responsive. Cardiovascular: He sounds to be in a regular rate and rhythm presently. No obvious murmurs. Warm and perfused lower extremities. Chest: His chest exam is clear bilaterally. No increased work of breathing. Abdomen: Soft, nontender, nondistended. No obvious organomegaly. Skin: Warm and dry throughout. PERTINENT DATA: His white count is elevated to 35 with hematocrit of 31.1, platelet count of 203. His ABG appears improved today with a pH of 7.45, PCO2 of 37, PO2 of 152. His sodium is 141. Potassium is 3.9, BUN 56, creatinine 3.2. His liver enzymes seem to improve. AST 185, ALT 514, which are both down from yesterday. ASSESSMENT: 1. Acute kidney injury. 2. Suggestion of pancreatitis. 3. Possible sepsis. 4. Atrial fibrillation. PLAN: Continue on current medications. Patient seems warm and perfused presently. Patient has an extremely poor prognosis. He certainly seemed to present with findings suggestive of globally poor perfusion. He had evidence for pancreatitis on presentation as well. Continue with supportive care presently.
[2016-11-20] MEDS: PROTONIX IV SCH (21:42)
[2016-11-20] MEDS: SODIUM CHLORIDE 0.9% INJ SCH (21:42)
[2016-11-20] MEDS ORDERED: VANCOMYCIN 1,750 MG in NS 250 ML IV SCH (22:00)
[2016-11-21] MEDS: DIPRIVAN 1% 100 ML IV SCH ×12 (00:26→22:17)
[2016-11-21] MEDS: ZOSYN 2.25 GM/NS 50 ML IV SCH ×4 (04:06→21:13)
[2016-11-21 04:55] LABS: ALLEN TEST YES; BE 0.5 mmoll (-3.0-3.0); BLOOD TYPE ARTERIAL; DRAW SITE R RADIAL; PO2(98.6) 180 mmHg (60-100); SAMPLE BLOOD; SRATE 26 BPM; TVOL 450 mL; pH(98.6) 7.29 (7.35-7.45)
[2016-11-21 04:56] LABS: MODALITY VENTILATOR; PCO2(98.6) 59 mmHg (35-45)
[2016-11-21 05:53] LABS: HEMATOCRIT 32.2 % (42.0-52.0); HEMOGLOBIN 10.1 g/dL (14.0-18.0); MCH 27.7 PG (27-31); MCHC 31.4 g/dL (33-37); MCV 88.2 FL (81-99); MPV 11.6 FL (7.4-10.4); RBC 3.65 XMIL (4.7-6.1)
[2016-11-21] MEDS: HUMULIN R 100 UNIT in NS 100 ML IV SCH (05:54)
[2016-11-21] MEDS: SYNTHROID IV SCH ×2 (05:55→08:15)
[2016-11-21 06:02] LABS: ALBUMIN 3.1 g/dL (3.5-5.0); CALCIUM 8.6 mg/dL (8.8-10.2); POTASSIUM 4.1 mmol/L (3.5-5.1); TOTAL BILIRUBIN 0.42 mg/dL (0.20-1.00); TOTAL PROTEIN 5.7 g/dL (6.3-8.3)
[2016-11-21 06:33] LABS: AMYLASE 645 U/L (20-200); LDH 396 U/L (135-225); LIPASE 88 U/L (13-60)
[2016-11-21] MEDS: LEVOPHED 8 MG in D5 1/2 NS 250 ML IV SCH ×2 (07:25→20:55)
[2016-11-21] MEDS: LASIX IV SCH (08:15)
--- NOTE | 2016-11-21 08:21 | Diag Imaging Result Document ---
PROCEDURE NAME: CHEST-PORTABLE - 11/21/2016 PORTABLE CHEST: COMPARISON: 11/20/2016. FINDINGS: Endotracheal tube and central venous catheter remain in place. There is stable cardiomegaly. There has been mild decrease in bilateral infiltrates or edema. There are possible small bilateral pleural effusions. There is no pneumothorax seen. IMPRESSION: Mild decrease in bilateral infiltrates or edema.
[2016-11-21] MEDS: CARDIZEM CD PO SCH (08:52)
[2016-11-21] MEDS: TOPROL XL PO SCH (08:52)
[2016-11-21] MEDS: SOLU-MEDROL IV SCH ×2 (10:58→23:14)
--- NOTE | 2016-11-21 10:59 | PROGRESS NOTE ---
DATE: 11/21/2016 Mr. Yost is dependent on the ventilator. His blood pressure status is improving. His lungs still reveal bilateral congestion. Abdomen is soft, distended, probably nontender. No guarding is present. There is minimal leg edema. CBC shows a white count of 30.97, hemoglobin 10.1. ABGs revealed pH 7.29, pCO2 59, PO2 180. He is on 80% FiO2. Electrolytes are stable. Potassium 4.1, BUN 46, creatinine 2.1. He amylase has come down to 645, lipase is 88 - almost close to normal, alkaline phosphatase is normal but AST and ALT are somewhat elevated. Overall prognosis is guarded. His daughter just mentioned that his had HIV and she wants us to check him for that.
[2016-11-21] MEDS: HUMULIN R IV SCH ×4 (12:03→23:23)
--- NOTE | 2016-11-21 14:30 | PROGRESS NOTE ---
DATE: 11/21/2016 SUBJECTIVE: Mr. Yost remains sedated and on the ventilator. He is not responsive. PHYSICAL EXAMINATION: Vital signs: He has been afebrile over the last 24 hours. Heart rates in the 90s, blood pressure 131/73. His I's and O's for the last 48 hours are negative roughly 3.6 L. Generally: No acute distress. Cardiovascular: He is in a regular rate and rhythm. Telemetry currently shows that he is in sinus. He has mild bilateral lower extremity edema. Warm and well perfused lower extremities. Chest: Exam has coarse bilateral breath sounds. Mechanical breath sounds heard throughout. Abdomen: Soft, nontender. Skin Exam: Warm and dry throughout. PERTINENT DATA: His white count is 30.9 with hematocrit of 32.2. His platelet count is 245,000. His sodium is 148, potassium 4.1. Sodium is up from 141 yesterday and has trended up from 129 on the . His BUN and creatinine are 46 and 2.1 respectively. That is improved from 56 and 3.2. His AST and ALT are improved at 129 and 328. ASSESSMENT: 1. Atrial fibrillation currently in sinus. 2. Respiratory failure. 3. Pancreatitis. 4. Acute kidney injury. PLAN: I will discontinue his oral antihypertensives as they have not been administered recently. I will also stop his Lasix as his sodium is trending up and would suggests that he is intravascularly dry. He certainly is getting a lot of fluid from the standpoint of his drips and sedation. Dr. Coles will be back to see the patient tomorrow.
[2016-11-21] MEDS ORDERED: NS 500 ML ONE (17:47)
[2016-11-21] MEDS ORDERED: CARDIZEM IV ONE (20:35)
[2016-11-21] MEDS: PROTONIX IV SCH (20:52)
[2016-11-21] MEDS: CARDIZEM 100 MG/NS 100 ML IV SCH (21:36)
[2016-11-21] MEDS: VANCOMYCIN 1,500 MG in NS 250 ML IV SCH (23:09)
[2016-11-22] MEDS: DIPRIVAN 1% 100 ML IV SCH ×10 (00:33→23:42)
[2016-11-22] MEDS: CARDIZEM 100 MG/NS 100 ML IV SCH ×4 (02:08→22:38)
[2016-11-22 04:46] LABS: ALLEN TEST YES; BE 2.6 mmoll (-3.0-3.0); BLOOD TYPE ARTERIAL; DRAW SITE R RADIAL; METHB 1.9 % (0.0-1.5); O2(CT) 16.9 mL/dL (15.0-23.0); PCO2(98.6) 41 mmHg (35-45); PO2(98.6) 138 mmHg (60-100); SAMPLE BLOOD; SAO2 99.7 % (95.0-100.0); SRATE 26 BPM; THB 12.4 g/dL (11.5-17.4); TVOL 450 mL; pH(98.6) 7.43 (7.35-7.45)
[2016-11-22 04:48] LABS: MODALITY VENTILATOR
[2016-11-22] MEDS: HUMULIN R IV SCH ×6 (05:16→22:59)
[2016-11-22] MEDS: ZOSYN 2.25 GM/NS 50 ML IV SCH ×4 (05:16→21:26)
[2016-11-22 05:37] LABS: HEMATOCRIT 35.3 % (42.0-52.0); MCH 27.9 PG (27-31); MCHC 31.2 g/dL (33-37); MCV 89.6 FL (81-99); RBC 3.94 XMIL (4.7-6.1)
[2016-11-22 06:17] LABS: ALBUMIN 3.1 g/dL (3.5-5.0); CALCIUM 8.7 mg/dL (8.8-10.2); POTASSIUM 5.8 mmol/L (3.5-5.1); TOTAL BILIRUBIN 0.49 mg/dL (0.20-1.00); TOTAL PROTEIN 6.2 g/dL (6.3-8.3)
[2016-11-22] MEDS: SYNTHROID IV SCH (07:44)
--- NOTE | 2016-11-22 07:47 | Diag Imaging Result Document ---
PROCEDURE NAME: CHEST-PORTABLE - 11/22/2016 SINGLE FRONTAL RADIOGRAPH OF THE CHEST: COMPARISON: 11/21/2016. FINDINGS: ET tube and right subclavian line are in stable position. Bilateral infiltrates likely representing mild edema are approximately stable. No new consolidations are identified. There is stable cardiomegaly. IMPRESSION: Essentially stable chest.
--- NOTE | 2016-11-22 09:30 | PROGRESS NOTE ---
DATE: 11/22/2016 Mr. Yost is in the ICU 11. Mr. Yost is essentially stable. Chest x-ray with bilateral infiltrates. Last night, he went into atrial fibrillation. He has been on Cardizem drip. He is off the Levophed now. He is still dependent on respirator. His FiO2 is set at 60%. O2 saturation is 97%. Heart rate is 97 at the present time. Blood pressure he is 96/60. General condition is poor. His laboratory data revealed leukocytosis. White count 20.93. The blood gases today revealed a pH of 7.43, pCO2 41, PO2 is 138. Electrolytes are normal except for still further surge in the potassium which is 5.8. BUN and creatinine are slightly worse. His liver enzymes are elevated. The rest of the values are okay. We will continue with the current management. -4
[2016-11-22] MEDS: SOLU-MEDROL IV SCH ×2 (10:25→22:25)
--- NOTE | 2016-11-22 11:28 | PROGRESS NOTE ---
DATE: 11/22/2016 SUBJECTIVE: The patient is currently sedated, intubated. OBJECTIVE: Vital signs: Temperature 98.2 degrees, pulse 104, respiratory rate 33, blood pressure 112/74. He remains on pressor support. Intake and output: Intake 2.2 L. Output 2.5 L. General: This is a middle-aged gentleman resting in bed. He is currently sedated and mechanically ventilated. HEENT: Normocephalic, atraumatic. Conjunctivae are pale. He is orally intubated. Neck: Supple. There is no JVD noted. Cardiovascular: Tachycardic, irregular. No murmur appreciated. Pulmonary: He has decreased breath sounds posterior bases. He has some rhonchi noted bilaterally. Abdomen: Soft, with hypoactive bowel sounds. : He has a Franks catheter with brownish urine. Extremities: Trace pretibial edema. No clubbing or cyanosis. Integumentary: Skin is pale, warm, and dry. LABORATORY DATA: WBC of 20.9, hemoglobin 11, platelet 251,000. Sodium 144, potassium 5.8, CO2 21, BUN 76, creatinine 2.9, calcium 8.7, albumin 3.1. He has a FENa score of 1.5 in the setting of Lasix. ASSESSMENT AND PLAN: 1. Acute overlying chronic kidney disease. Again his baseline creatinine is around 2. He had reached that point yesterday. He had some worsening overnight. His urine output, however, has remained excellent and he has been euvolemic with his fluid volumes. He has no absolute indication for dialysis. We will continue to monitor. 2. Hyperkalemia. He has moderate hyperkalemia noted this morning. Treat as warranted. 3. Acid-base balance, acceptable. 4. Anemia. Hemoglobin has been stable. Seen, data reviewed, discussed with Papa Kaur on 11/22/15. I agree with the above assessment and plan of care. rg Dictated by BERLIN Pascal for Chris Musa MD [facility]
[2016-11-22 11:39] LABS: HIV ANTIBODY SCREEN SEE COMMENTS (())
[2016-11-22] MEDS ORDERED: KAYEXALATE PO ONE (11:55)
--- NOTE | 2016-11-22 13:12 | Diag Imaging Result Document ---
PROCEDURE NAME: CHEST-PORTABLE - 11/22/2016 PLAIN RADIOGRAPH OF THE LOWER CHEST AND UPPER ABDOMEN: COMPARISON: 11/22/2016. FINDINGS: The newly placed NG tube projects below the diaphragm and is assumed to be in the stomach in the expected position. Limited views of the lung bases are grossly stable. IMPRESSION: Interval placement of NG tube in the expected position as described.
[2016-11-22] MEDS: PROTONIX IV SCH (19:32)
[2016-11-22] MEDS: SODIUM CHLORIDE 0.9% INJ SCH (19:32)
[2016-11-22] MEDS: VANCOMYCIN 1,500 MG in NS 250 ML IV SCH (22:59)
[2016-11-23] MEDS: DIPRIVAN 1% 100 ML IV SCH ×8 (02:51→22:57)
[2016-11-23] MEDS: HUMULIN R IV SCH ×6 (03:14→23:10)
[2016-11-23] MEDS: ZOSYN 2.25 GM/NS 50 ML IV SCH ×4 (03:26→21:53)
[2016-11-23 04:31] LABS: ALLEN TEST YES; BE 6.6 mmoll (-3.0-3.0); BLOOD TYPE ARTERIAL; DRAW SITE R RADIAL; METHB 1.5 % (0.0-1.5); O2(CT) 15.7 mL/dL (15.0-23.0); PCO2(98.6) 40 mmHg (35-45); PO2(98.6) 135 mmHg (60-100); SAMPLE BLOOD; SAO2 99.8 % (95.0-100.0); SRATE 20 BPM; THB 11.4 g/dL (11.5-17.4); TVOL 550 mL; pH(98.6) 7.49 (7.35-7.45)
[2016-11-23 04:34] LABS: MODALITY VENTILATOR
[2016-11-23 06:01] LABS: HEMATOCRIT 34.7 % (42.0-52.0); HEMOGLOBIN 10.7 g/dL (14.0-18.0); MCH 28.2 PG (27-31); MCHC 30.8 g/dL (33-37); MCV 91.3 FL (81-99); MPV 12.2 FL (7.4-10.4); RBC 3.8 XMIL (4.7-6.1)
[2016-11-23] MEDS: SYNTHROID IV SCH (06:12)
[2016-11-23 06:40] LABS: CALCIUM 8.7 mg/dL (8.8-10.2); POTASSIUM 4.6 mmol/L (3.5-5.1); TOTAL BILIRUBIN 0.54 mg/dL (0.20-1.00); TOTAL PROTEIN 5.8 g/dL (6.3-8.3)
--- NOTE | 2016-11-23 07:40 | Diag Imaging Result Document ---
PROCEDURE NAME: CHEST-PORTABLE - 11/23/2016 SINGLE FRONTAL RADIOGRAPH OF THE CHEST: COMPARISON: 11/22/2016. FINDINGS: ET tube and right central line are in stable position. NG tube is stable. Bilateral predominantly interstitial infiltrates are approximately stable. No new consolidations are appreciated. There is probably a small right effusion that has developed. Cardiac silhouette is stable. IMPRESSION: Stable increased interstitial markings suggestive of edema and probably development of a small right effusion.
--- NOTE | 2016-11-23 08:24 | PROGRESS NOTE ---
DATE: 11/23/2016 SUBJECTIVE: He remains sedated on the ventilator. OBJECTIVE: Vital Signs: Blood pressure 115/63, heart rate 97, respirations 24, temperature 99.1 degrees. Intake 2.4 L. Output 2.8 L. PHYSICAL EXAMINATION: No acute distress. Skin is warm and dry. Conjunctivae are pink. Neck veins are not appreciated. Heart is regular and tachycardic. Lungs have equal breath sounds. No crackles or wheezes. The abdomen is soft and nontender. Bowel sounds are diminished. Extremities have trace edema around the hips. No clubbing or cyanosis. LABORATORY DATA: Sodium 151, potassium 4.6, chloride 109, bicarbonate 25. BUN 80, creatinine 2.1. IMPRESSION: 1. Acute kidney injury overlying chronic kidney disease. His creatinine has returned to his historical baseline. 2. Hyperkalemia, resolved. 3. Hypernatremia, new. PLAN: I will increase his enteral free water by changing his flushes from 40 mL every 6 hours to 100 mL every 2 hours.
[2016-11-23] MEDS: CARDIZEM 100 MG/NS 100 ML IV SCH ×2 (08:54→17:26)
--- NOTE | 2016-11-23 08:58 | PROGRESS NOTE ---
DATE: 11/23/2016 Mr. Yost continues to be dependent on the respirator. Vital signs are stable. He is on a Cardizem drip. Electrolytes are normal. Sodium is slightly high at 151. BUN is also high, 80, with creatinine of 2.1. Elevated sodium probably indicates mild dehydration. His ABGs are satisfactory. Chest x-ray shows minimal right-sided pleural effusion. Overall condition is unchanged. His HIV antibody screen was nonreactive. We will inform the daughter about the HIV testing as she was very much concerned about it. White count continues to be slightly high at 16.6. Overall condition is much unchanged.
[2016-11-23] MEDS: SOLU-MEDROL IV SCH ×2 (11:18→22:00)
--- NOTE | 2016-11-23 11:39 | Diag Imaging Result Document ---
PROCEDURE NAME: CT ABD/PELVIS ORAL CONTR ONLY - 11/23/2016 CT ABDOMEN AND PELVIS WITH ORAL CONTRAST ONLY: TECHNIQUE: Dose-reduction protocol. COMPARISON: Compared to 11/23/2016. FINDINGS: Interval worsening of the lower lobe infiltrates and atelectasis with tiny pleural effusions. The heart remains enlarged. Normal spleen and adrenal glands. No inflammation about the pancreas or gallbladder. No focal hepatic abnormality identified on this noncontrasted study. No renal stones. No hydronephrosis. No aortic aneurysm. Prominent stool in the rectum. There are several scattered diverticula. No inflammation about the cecum. No abscess. A Franks catheter has the urinary bladder decompressed. The prostate is small or has been removed. IMPRESSION: 1. Basilar infiltrates and atelectasis with tiny effusions and cardiomegaly. 2. No inflammation about the pancreas, pancreatic calcifications, or pseudocysts. 3. Possible fecal impaction with prominent stool in the rectum.
[2016-11-23] MEDS ORDERED: DULCOLAX PR ONE (16:13)
[2016-11-23] MEDS: PROTONIX IV SCH (19:29)
[2016-11-23] MEDS: SODIUM CHLORIDE 0.9% INJ SCH (19:30)
[2016-11-23] MEDS: VANCOMYCIN 1,500 MG in NS 250 ML IV SCH (22:00)
[2016-11-24] MEDS: DIPRIVAN 1% 100 ML IV SCH ×8 (00:36→22:26)
[2016-11-24] MEDS: CARDIZEM 100 MG/NS 100 ML IV SCH ×3 (02:29→15:38)
[2016-11-24] MEDS: ZOSYN 2.25 GM/NS 50 ML IV SCH ×4 (03:09→21:27)
[2016-11-24] MEDS: HUMULIN R IV SCH ×5 (03:12→20:06)
[2016-11-24 04:46] LABS: ALLEN TEST YES; BE 5.7 mmoll (-3.0-3.0); BLOOD TYPE ARTERIAL; DRAW SITE R RADIAL; METHB 1.9 % (0.0-1.5); O2(CT) 16.2 mL/dL (15.0-23.0); PCO2(98.6) 33 mmHg (35-45); PO2(98.6) 146 mmHg (60-100); SAMPLE BLOOD; SAO2 99.6 % (95.0-100.0); SRATE 14 BPM; THB 11.8 g/dL (11.5-17.4); TVOL 550 mL; pH(98.6) 7.54 (7.35-7.45)
[2016-11-24 04:49] LABS: MODALITY VENTILATOR
[2016-11-24 06:23] LABS: ALBUMIN 3.1 g/dL (3.5-5.0); POTASSIUM 5.1 mmol/L (3.5-5.1); TOTAL BILIRUBIN 0.54 mg/dL (0.20-1.00); TOTAL PROTEIN 6.1 g/dL (6.3-8.3)
[2016-11-24] MEDS: SYNTHROID IV SCH (06:32)
[2016-11-24 06:37] LABS: HEMATOCRIT 38.9 % (42.0-52.0); HEMOGLOBIN 11.9 g/dL (14.0-18.0); MCH 28.3 PG (27-31); MCHC 30.6 g/dL (33-37); MCV 92.6 FL (81-99); MPV 12.4 FL (7.4-10.4); RBC 4.2 XMIL (4.7-6.1)
--- NOTE | 2016-11-24 07:56 | Diag Imaging Result Document ---
PROCEDURE NAME: CHEST-PORTABLE - 11/24/2016 AP PORTABLE CHEST AT 0500 HOURS: FINDINGS: There is an endotracheal tube with its tip at the thoracic inlet and an NG tube which passes into the stomach. There is interstitial pulmonary edema. There has been some improvement with some respect to the right lower lobe. Otherwise, there has been no significant change since 11/23/2016. IMPRESSION: Cardiomegaly and pulmonary edema.
--- NOTE | 2016-11-24 08:46 | PROGRESS NOTE ---
DATE: 11/24/2016 SUBJECTIVE: Mr. Yost is in about the same general condition. He is dependent on the vent. He is on 50% FiO2. Now, he is getting NG tube feeding with Nepro. OBJECTIVE: His lungs still are congested. The chest x-ray shows pulmonary edema with cardiomegaly. Vital signs are stable. Overall condition is unchanged. He is still on Cardizem IV drip. We will continue the current management on him. A CT scan of the abdomen did not show anything which was very significant except for some definite stools in the rectum. We gave him a suppository last night.
--- NOTE | 2016-11-24 09:07 | PROGRESS NOTE ---
DATE: 11/24/2016 Mr. Yost is in about the same general condition. He is dependent on the vent. He is on 50% FiO2 now. He is getting NG tube feeding with Nepro. His lungs still are congested. Chest x-ray shows pulmonary edema with cardiomegaly. Vital signs are stable. Overall condition is unchanged. He is still on Cardizem IV drip. Will continue the current management on him. CT scan of the abdomen did not show anything which was pretty significant except for some definite stool in the rectum. We gave him a suppository last night. -8
--- NOTE | 2016-11-24 10:39 | PROGRESS NOTE ---
DATE: 11/24/2016 SUBJECTIVE: The patient remains sedated and mechanically ventilated. OBJECTIVE: Vital Signs: Temperature 99.9 degrees, pulse 115, respiratory rate 26, blood pressure 118/66. Intake 3.8 L; output 2.8 L. General: Elderly gentleman resting in bed , currently sedated. HEENT: Normocephalic, atraumatic. He is orally intubated. Neck: Supple. Cardiovascular: Tachycardic on Cardizem. Pulmonary: Equal excursion. Again, mechanically ventilated. Abdomen: Soft. Positive bowel sounds. : Franks catheter. He has light brown urine noted. Extremities: Trace dependent edema. No clubbing or cyanosis. Integumentary: Skin is warm and dry. No rash or lesion. LAB DATA: WBC of 20.5, hemoglobin 11.9, sodium 153, potassium 5.1, CO2 24, BUN 70 and creatinine 1.9. ASSESSMENT AND PLAN: 1. Acute kidney injury with overlying chronic kidney disease. His creatinine is stable at historical baseline. 2. Hypernatremia. His free water was increased, however his sodium continued to rise. We will increase his free water back to 100 mL q. 2 hours. 3. Hyperkalemia, resolved. Continue to monitor. Seen, data reviewed, discussed with Papa Kaur on 11/24/15. I agree with the above assessment and plan of care. rg Dictated by BERLIN Pascal for Chris Musa MD [facility]
[2016-11-24] MEDS: SOLU-MEDROL IV SCH ×2 (11:19→22:19)
[2016-11-24] MEDS: DOBUTAMINE IV SCH (12:01)
[2016-11-24] MEDS: [UNRECOGNIZED DRUG - OTHER] IV SCH (12:01)
[2016-11-24] MEDS: LASIX IV SCH ×2 (12:02→22:19)
[2016-11-24] MEDS: LOPRESSOR IV SCH ×2 (12:02→19:27)
[2016-11-24] MEDS: PROTONIX IV SCH (19:27)
[2016-11-24] MEDS: SODIUM CHLORIDE 0.9% INJ SCH (19:27)
[2016-11-24] MEDS: VANCOMYCIN 1,500 MG in NS 250 ML IV SCH (22:19)
[2016-11-25] MEDS: HUMULIN R IV SCH ×6 (00:28→20:59)
[2016-11-25] MEDS: DIPRIVAN 1% 100 ML IV SCH ×9 (01:22→21:55)
[2016-11-25] MEDS: CARDIZEM 100 MG/NS 100 ML IV SCH ×2 (02:59→10:27)
[2016-11-25] MEDS: LOPRESSOR IV SCH ×3 (03:18→20:13)
[2016-11-25] MEDS: ZOSYN 2.25 GM/NS 50 ML IV SCH ×4 (03:31→21:54)
[2016-11-25 04:44] LABS: ALLEN TEST YES; BE 5.6 mmoll (-3.0-3.0); BLOOD TYPE ARTERIAL; DRAW SITE R RADIAL; METHB 1.3 % (0.0-1.5); O2(CT) 17.2 mL/dL (15.0-23.0); PCO2(98.6) 27 mmHg (35-45); PO2(98.6) 138 mmHg (60-100); SAMPLE BLOOD; SAO2 99.9 % (95.0-100.0); SRATE 19 BPM; THB 12.5 g/dL (11.5-17.4); TVOL 550 mL
[2016-11-25 04:47] LABS: MODALITY VENTILATOR
[2016-11-25 05:37] LABS: HEMATOCRIT 40.9 % (42.0-52.0); HEMOGLOBIN 12.2 g/dL (14.0-18.0); MCH 27.7 PG (27-31); MCHC 29.8 g/dL (33-37); MPV 13.3 FL (7.4-10.4); RBC 4.4 XMIL (4.7-6.1)
[2016-11-25 05:55] LABS: ALBUMIN 2.9 g/dL (3.5-5.0); CALCIUM 8.8 mg/dL (8.8-10.2); POTASSIUM 4.9 mmol/L (3.5-5.1); TOTAL BILIRUBIN 0.59 mg/dL (0.20-1.00); TOTAL PROTEIN 5.9 g/dL (6.3-8.3)
[2016-11-25] MEDS: SYNTHROID IV SCH (06:27)
[2016-11-25] MEDS: NORCO-7.5 PO PRN (07:26)
--- NOTE | 2016-11-25 08:03 | Diag Imaging Result Document ---
PROCEDURE NAME: CHEST-PORTABLE - 11/25/2016 AP PORTABLE CHEST AT 0500 HOURS: FINDINGS: There is cardiomegaly. There is a right subclavian central venous catheter with its tip in the superior vena cava. There is mild interstitial pulmonary edema which may be slightly improved since 11/24/2016. IMPRESSION: Improving pulmonary edema.
[2016-11-25] MEDS ORDERED: OFIRMEV 1000 MG/ISOTONIC SOLN 100 ML IV SCH (09:00)
--- NOTE | 2016-11-25 09:23 | PROGRESS NOTE ---
DATE: 11/25/2016 Mr. Yost is not feeling good. He is running a temperature. It was 102 this morning. His urine looks concentrated. Lungs sound much better. Chest x-ray shows improvement. He is on the ventilator with PEEP of 5 and FiO2 of 40%. Respiratory rate of 14, O2 saturation is around 97%. Heart rate is 122. He is getting the Cardizem drip as well as dobutamine. Overall prognosis appears poor. He is much more lethargic today than yesterday. We are going to repeat a urine culture as well as a blood culture and give him Tylenol for fever. -9
[2016-11-25] MEDS: OFIRMEV 1000 MG/ISOTONIC SOLN 100 ML IV PRN (09:28)
[2016-11-25 09:53] LABS: URINE SOURCE CLEAN CATCH
[2016-11-25 09:59] LABS: URINE MICRO REVIEW NEEDED? YES
[2016-11-25 10:01] LABS: BILIRUBIN URINE NEGATIVE (NEGATIVE); BLOOD URINE LARGE (NEGATIVE); COLOR ORANGE; GLUCOSE URINE NEGATIVE (NEGATIVE); LEUKOCYTES URINE SMALL (NEGATIVE); NITRITE URINE NEGATIVE (NEGATIVE); PH URINE 5.5; PROTEIN URINE 70 mg/dL (NEGATIVE); SP GRAVITY URINE 1.027; TURBIDITY URINE TURBID (CLEAR); UR EPITHELIAL CELLS <10 /HPF (<10); URINE BACTERIA NEGATIVE /HPF; URINE RBC TNTC /HPF (<10); UROBILINOGEN URINE NORMAL (NORMAL)
[2016-11-25 10:27] LABS: URINE CASTS NONE SEEN; URINE CRYSTALS NONE SEEN; URINE SMALL ROUND CELLS NONE SEEN
[2016-11-25] MEDS: LEVOPHED 8 MG in D5 1/2 NS 250 ML IV SCH ×2 (10:27→21:09)
[2016-11-25] MEDS: SOLU-MEDROL IV SCH ×2 (10:29→22:56)
[2016-11-25] MEDS: DOBUTAMINE IV SCH (11:29)
[2016-11-25] MEDS: [UNRECOGNIZED DRUG - OTHER] IV SCH (11:29)
--- NOTE | 2016-11-25 15:48 | PROGRESS NOTE ---
DATE: 11/25/2016 SUBJECTIVE: Patient resting in the bed. He is sedated and mechanically ventilated. OBJECTIVE: Vital Signs: Temperature 99.9 degrees, pulse 98, respiratory rate 22, blood pressure 95/57. Intake 1.3 L. Output is 600 mL. PHYSICAL EXAMINATION: General: Elderly gentleman resting in bed. He is sedated. HEENT: Normocephalic, atraumatic. He is orally intubated. Neck: Supple. Trachea midline. Cardiovascular: Irregular rhythm, controlled rate. Pulmonary: He has equal excursion. He is clear bilaterally. Again, mechanically ventilated. Abdomen: Soft. Hypoactive bowel sounds. : Franks catheter with dark urine noted. Extremities: Trace pretibial edema. Dependent edema. Integumentary: Skin is warm and dry otherwise. LAB DATA: WBC of 22.9, hemoglobin 12.2. Sodium 152, potassium 4.9, CO2 23, BUN 88, creatinine 2.5. ASSESSMENT AND PLAN: 1. Acute overlying chronic kidney disease. Renal function slightly decreased overnight. Recheck labs in the morning. If worsens will re-study urines. 2. Electrolytes. He remains with some hypernatremia. His free water was increased yesterday. We may have to increase this further or change tube feeding. 3. Fluid volume. He is in positive territory overnight. Continue to monitor. Seen, data reviewed, discussed with Papa Kaur on 11/25/16. I agree with the above assessment and plan of care. rg Dictated by BERLIN Pascal for Chris Musa MD [facility]
[2016-11-25] MEDS ORDERED: MYCAMINE 100 MG in NS 100 ML IV SCH (18:45)
--- NOTE | 2016-11-25 19:09 | CONSULTATION ---
DATE OF CONSULTATION: 11/25/2016 CONCLUSION: The patient is seen in the Intensive Care Unit. He has marked leukocytosis and is requiring pressors to keep his blood pressure up. I agree that the patient may well be septic. He does have a subclavian catheter in which may be the source of sepsis. His chest x-ray seems to be more like pulmonary edema rather than pneumonia. He does have a Franks catheter in and certainly a urinary tract infection is a possibility. RECOMMENDATIONS: The patient already is on vancomycin and Zosyn. To this I have added micafungin. DISCUSSION: The patient is unable to give a history. No family member is present. He came into the hospital with what seems to be congestive heart failure. He also has developed leukocytosis. He eventually was placed in the Intensive Care Unit and currently he is intubated and sedated. The patient's studies thus far show a CBC with a white count of 22,290,hemoglobin 12.2, and platelet count 159,000. Patient's blood gases show a pH of 7.6, PO2 of 138, and pCO2 of 27. The patient's creatinine is 2.5. GFR is 27. HIV antibodies are negative. Urine and blood cultures are pending. Earlier blood and urine cultures were sterile. The patient's sputum grew normal vasu. Chest x-ray shows pulmonary edema. Patient has a history of COPD, hypothyroidism, atrial fibrillation and congestive heart failure. ALLERGIES: Patient's allergies include lisinopril, lorazepam, morphine, aspirin, atorvastatin, carvedilol, codeine, metformin, and Januvia. HOME MEDICATIONS: Hydrocodone, nitroglycerin, metoprolol, spironolactone, prednisone, potassium, omeprazole, Synthroid, furosemide, alprazolam and albuterol inhaler. PHYSICAL EXAMINATION: Vital Signs: Temperature is 97.5 degrees, pulse 107, respirations 24, blood pressure 84/66. General: This is an ill-appearing, middle-aged male. He is intubated and sedated. HEENT: No drainage noted from the nose or ears. Neck: No meningismus. Lungs: Clear to auscultation. Cardiovascular: Heart rate is irregular. Abdomen: Soft and nontender. Genitalia: Franks catheter is in place. Neurologic: Patient is obtunded. He made no spontaneous movements during my examination. Integument: No rash noted. Thank you for the consultation.
[2016-11-25] MEDS: SODIUM CHLORIDE 0.9% INJ SCH (21:03)
[2016-11-25] MEDS: PROTONIX IV SCH (21:03)
[2016-11-25] MEDS: VANCOMYCIN 1,500 MG in NS 250 ML IV SCH (23:48)
[2016-11-26] MEDS: HUMULIN R IV SCH ×6 (00:04→20:22)
[2016-11-26] MEDS: OFIRMEV 1000 MG/ISOTONIC SOLN 100 ML IV PRN (01:10)
[2016-11-26] MEDS: CARDIZEM 100 MG/NS 100 ML IV SCH ×3 (02:53→16:46)
[2016-11-26] MEDS: LOPRESSOR IV SCH ×3 (03:14→20:25)
[2016-11-26] MEDS: DIPRIVAN 1% 100 ML IV SCH ×2 (04:04→07:16)
[2016-11-26] MEDS: ZOSYN 2.25 GM/NS 50 ML IV SCH ×4 (04:09→22:17)
[2016-11-26 04:41] LABS: ALLEN TEST YES; BE -0.2 mmoll (-3.0-3.0); BLOOD TYPE ARTERIAL; DRAW SITE R RADIAL; METHB 1.6 % (0.0-1.5); O2(CT) 18.5 mL/dL (15.0-23.0); PCO2(98.6) 29 mmHg (35-45); PO2(98.6) 130 mmHg (60-100); SAMPLE BLOOD; SAO2 100.2 % (95.0-100.0); SRATE 14 BPM; THB 13.5 g/dL (11.5-17.4); TVOL 550 mL; pH(98.6) 7.49 (7.35-7.45)
[2016-11-26 04:49] LABS: MODALITY VENTILATOR
[2016-11-26] MEDS: SYNTHROID IV SCH (06:13)
[2016-11-26] MEDS: SODIUM CHLORIDE 0.9% INJ SCH ×2 (06:13→20:22)
[2016-11-26 06:20] LABS: HEMATOCRIT 42.8 % (42.0-52.0); HEMOGLOBIN 12.8 g/dL (14.0-18.0); MCH 27.8 PG (27-31); MCHC 29.9 g/dL (33-37); MCV 92.8 FL (81-99); PLT 160 X1000 (130-400); RBC 4.61 XMIL (4.7-6.1)
[2016-11-26 06:49] LABS: INR 1.07; PROTIME 11.3 Seconds (9.2-11.7); PTT 23.8 Seconds (22.0-36.0)
[2016-11-26 06:59] LABS: ALBUMIN 3.1 g/dL (3.5-5.0); CALCIUM 8.6 mg/dL (8.8-10.2); POTASSIUM 4.8 mmol/L (3.5-5.1); TOTAL BILIRUBIN 0.49 mg/dL (0.20-1.00); TOTAL PROTEIN 5.8 g/dL (6.3-8.3)
[2016-11-26] MEDS: [UNRECOGNIZED DRUG - OTHER] IV SCH ×3 (07:20→15:04)
[2016-11-26] MEDS: DOBUTAMINE IV SCH ×3 (07:20→15:04)
--- NOTE | 2016-11-26 07:45 | Diag Imaging Result Document ---
PROCEDURE NAME: CHEST-PORTABLE - 11/26/2016 AP PORTABLE CHEST: TIME: 0530 hours. FINDINGS: There is an endotracheal tube with its tip at the thoracic inlet and an NG tube which passes below the diaphragm. There is a right subclavian central venous catheter with its tip in the superior vena cava. There is atelectasis in the right lower lobe. There is some hazy interstitial opacity which may be due to mild pulmonary edema. Overall, there has been no significant change since 11/25/2016. IMPRESSION: Stable chest.
[2016-11-26] MEDS ORDERED: NS 250 ML ONE (08:20)
[2016-11-26] MEDS ORDERED: MORPHINE IV PRN (08:45)
[2016-11-26] MEDS ORDERED: ATIVAN IV PRN (08:45)
--- NOTE | 2016-11-26 10:06 | PROGRESS NOTE ---
DATE: 11/26/2016 SUBJECTIVE: Sedated on the ventilator. OBJECTIVE: Vital Signs: Blood pressure 104/74, heart rate 95, respiration 14, afebrile. Intake 4.4 L; output 2.6 L. General appearance: On physical exam, no acute distress. Skin: Warm and dry. Eyes: Conjunctivae are pink. Heart: Regular and tachycardic. Lungs: Have equal breath sounds. A few scattered crackles. Abdomen: Soft. Minimal bowel sounds. Extremities: Have 1+ edema. No clubbing or cyanosis. LABORATORY DATA: Sodium 147, potassium 4.8, chloride 110, bicarbonate 18, BUN 87, creatinine 2.2. IMPRESSION: 1. Acute kidney injury. His creatinine is essentially at his baseline. 2. Hyperkalemia, resolved. 3. Hypernatremia, improving with free water. 4. Acid-base. Little change. PLAN: Continue to observe.
[2016-11-26] MEDS: LEVOPHED 8 MG in D5 1/2 NS 250 ML IV SCH (10:17)
[2016-11-26] MEDS: VERSED IV PRN ×5 (10:40→18:58)
--- NOTE | 2016-11-26 10:57 | Diag Imaging Result Document ---
PROCEDURE NAME: CHEST-PORTABLE - 11/26/2016 AP PORTABLE CHEST AT 1020 HOURS: FINDINGS: There is increasing opacification in the right middle lobe compared to 11/26/2016 at 0530 hours. Otherwise there has been no apparent change. IMPRESSION: Slight worsening in atelectasis in the right middle lobe. There is a right PICC line with its tip in the superior vena cava.
[2016-11-26] MEDS: SOLU-MEDROL IV SCH ×2 (11:03→22:23)
--- NOTE | 2016-11-26 12:44 | PROGRESS NOTE ---
DATE: 11/26/2016 Mr. Yost continues to be in atrial fibrillation. His heart rate is around 86. He is on Cardizem drip as well as Levophed and dobutamine drip. He is running fever. He is on hypothermia blanket. Vital signs otherwise are stable. At present his temperature is 97.2 degrees, respiratory rate is 14, he is on 40% FiO2 on the vent. He is getting IV piperacillin as well as vancomycin and he was seen by Dr. Oral Gruber yesterday in consultation. Dr. Gruber has added Micafungin on top of the current antibiotics. Overall prognosis appears to be poor. Today's chest x-ray, there was slight worsening of atelectasis in the right middle lobe. He has a PICC line now which has tip in the superior vena cava. We will continue the current management on him.
--- NOTE | 2016-11-26 16:06 | PROGRESS NOTE ---
DATE: 11/26/2016 PRESENT ILLNESS: The patient has a severe pneumonia. MEDICATIONS: The patient is receiving vancomycin, Zosyn and micafungin. PHYSICAL EXAMINATION: Vital Signs: Temperature was 102, now it is 99.2, pulse 110, respirations 14, blood pressure 104/74. General: The patient looks ill, but he is in no acute distress. He is intubated and sedated. Lungs: Bilateral rhonchi. Cardiovascular: Irregular and rapid heart rate. Abdomen: Soft and nontender. LABORATORY AND X-RAY: Chest x-ray shows increasing opacification in the right middle lobe compared to an earlier chest x-ray. There is slight worsening in the atelectasis in the right middle lobe. Patient's CBC shows a white count of 27,260, hemoglobin 12.8 and platelet count 160,000. The patient's blood gases show a pH of 7.49, a PO2 of 130 and pCO2 of 29. Creatinine is 2.2 with a GFR of 31, random vancomycin level is 14.5. PHYSICAL EXAMINATION: Vital signs: Temperature was 102 degrees, now is 99.2, pulse 110, respirations 14, blood pressure 104/74. Generally: This is an ill-appearing, middle-aged male. He is intubated and sedated. Lungs: Clear to auscultation. Cardiovascular: Rapid irregular heart rate. Abdomen: Is soft, with no apparent tenderness. Neck: No meningismus. ASSESSMENT: 1. Patient has a severe pneumonia. My plan is to continue vancomycin and Zosyn. I have discontinued micafungin and added Levaquin. 2. Comorbidities: The patient has an alpha 1 antitrypsin deficiency. He also has a severe chronic obstructive pulmonary disease.
[2016-11-26] MEDS: LEVAQUIN 250 MG/D5W 50 ML IV SCH (16:50)
[2016-11-26] MEDS: PROTONIX IV SCH (20:22)
[2016-11-26] MEDS: VANCOMYCIN 1,500 MG in NS 250 ML IV SCH (22:23)
[2016-11-26] MEDS: NORCO-7.5 PO PRN (22:23)
[2016-11-27] MEDS: LEVOPHED 8 MG in D5 1/2 NS 250 ML IV SCH ×2 (00:28→20:34)
[2016-11-27] MEDS: CARDIZEM 100 MG/NS 100 ML IV SCH ×3 (00:29→22:30)
[2016-11-27] MEDS: HUMULIN R IV SCH ×6 (00:34→20:33)
[2016-11-27] MEDS: ZOSYN 2.25 GM/NS 50 ML IV SCH ×4 (03:40→21:41)
[2016-11-27] MEDS: LOPRESSOR IV SCH ×3 (03:45→20:32)
[2016-11-27 05:00] LABS: ALLEN TEST YES; BE -2.1 mmoll (-3.0-3.0); BLOOD TYPE ARTERIAL; DRAW SITE R RADIAL; METHB 1.4 % (0.0-1.5); O2(CT) 23.8 mL/dL (15.0-23.0); PCO2(98.6) 33 mmHg (35-45); PO2(98.6) 114 mmHg (60-100); SAMPLE BLOOD; SAO2 99.7 % (95.0-100.0); SRATE 14 BPM; THB 17.5 g/dL (11.5-17.4); TVOL 550 mL; pH(98.6) 7.42 (7.35-7.45)
[2016-11-27 05:01] LABS: MODALITY VENTILATOR
[2016-11-27] MEDS: SYNTHROID IV SCH (06:29)
[2016-11-27 07:04] LABS: HEMATOCRIT 46.2 % (42.0-52.0); MCH 27.8 PG (27-31); MCHC 30.3 g/dL (33-37); MCV 91.8 FL (81-99); PLT 226 X1000 (130-400); RBC 5.03 XMIL (4.7-6.1)
[2016-11-27 07:09] LABS: ALBUMIN 3.2 g/dL (3.5-5.0); CALCIUM 9.3 mg/dL (8.8-10.2); POTASSIUM 4.8 mmol/L (3.5-5.1); TOTAL BILIRUBIN 0.47 mg/dL (0.20-1.00)
[2016-11-27] MEDS: VERSED IV PRN ×6 (07:33→20:32)
--- NOTE | 2016-11-27 08:29 | Diag Imaging Result Document ---
PROCEDURE NAME: CHEST-PORTABLE - 11/27/2016 PORTABLE CHEST: COMPARISON: 11/26/2016. FINDINGS: Endotracheal tube, nasogastric tube, and PICC line remain in place. There has been mild decrease in atelectasis or infiltrate at medial right base. The remainder of the lungs appear grossly clear. There is no substantial pleural effusion, or pneumothorax identified. Heart size is stable. IMPRESSION: Mild decrease in atelectasis or infiltrate at medial right base.
[2016-11-27] MEDS: SOLU-MEDROL IV SCH ×2 (10:47→22:30)
--- NOTE | 2016-11-27 13:06 | PROGRESS NOTE ---
DATE: 11/27/2016 Mr. Yost is somewhat more alert. He is still dependent on the vent. He is on 40% FiO2, 5 cm PEEP and respiratory rate is around 12. His vital signs reveal temperature is normal. Pulse is around 180s in atrial fibrillation. He is on IV antibiotics including the antifungal agent. Urine culture grew fungus. His white count is continuing to go up, it is 38.53, hemoglobin 14 g. PH 7.42, pCO2 of 33, PO2 is 114. Electrolytes were stable. BUN is still 84 with a creatinine of 1.9. General condition otherwise unchanged. Chest x-ray shows some improvement. I will continue with the current management.
[2016-11-27] MEDS: LEVAQUIN 250 MG/D5W 50 ML IV SCH (15:48)
[2016-11-27] MEDS: SODIUM CHLORIDE 0.9% INJ SCH (20:32)
[2016-11-27] MEDS: PROTONIX IV SCH (20:32)
[2016-11-27] MEDS: VANCOMYCIN 1,500 MG in NS 250 ML IV SCH (22:30)
[2016-11-27] MEDS: NORCO-7.5 PO PRN (22:30)
[2016-11-28] MEDS: HUMULIN R IV SCH ×6 (00:49→20:28)
[2016-11-28] MEDS: VERSED IV PRN (00:50)
[2016-11-28] MEDS: LOPRESSOR IV SCH ×3 (02:39→20:27)
[2016-11-28] MEDS: ZOSYN 2.25 GM/NS 50 ML IV SCH ×4 (03:02→21:09)
[2016-11-28 04:35] LABS: ALLEN TEST YES; BE -2.3 mmoll (-3.0-3.0); BLOOD TYPE ARTERIAL; DRAW SITE R RADIAL; METHB 1.6 % (0.0-1.5); O2(CT) 19.1 mL/dL (15.0-23.0); PCO2(98.6) 33 mmHg (35-45); PO2(98.6) 118 mmHg (60-100); SAMPLE BLOOD; SAO2 100.7 % (95.0-100.0); SRATE 14 BPM; TVOL 550 mL; pH(98.6) 7.42 (7.35-7.45)
[2016-11-28 04:36] LABS: MODALITY VENTILATOR
[2016-11-28 05:22] LABS: HEMATOCRIT 45.2 % (42.0-52.0); HEMOGLOBIN 13.6 g/dL (14.0-18.0); MCH 27.6 PG (27-31); MCHC 30.1 g/dL (33-37); MCV 91.9 FL (81-99); PLT 190 X1000 (130-400); RBC 4.92 XMIL (4.7-6.1)
[2016-11-28 06:01] LABS: ALBUMIN 2.9 g/dL (3.5-5.0); CALCIUM 9.7 mg/dL (8.8-10.2); POTASSIUM 4.7 mmol/L (3.5-5.1); TOTAL BILIRUBIN 0.34 mg/dL (0.20-1.00); TOTAL PROTEIN 5.7 g/dL (6.3-8.3)
[2016-11-28] MEDS: SYNTHROID IV SCH (06:08)
[2016-11-28] MEDS: CARDIZEM 100 MG/NS 100 ML IV SCH ×2 (06:37→16:07)
--- NOTE | 2016-11-28 06:41 | Diag Imaging Result Document ---
PROCEDURE NAME: CHEST-PORTABLE - 11/28/2016 PORTABLE CHEST: COMPARISON: Compared to 11/27/2016. FINDINGS: Endotracheal tube remains in good position. Nasogastric tube overlies the esophagus and stomach. Sternal wires are present and the heart remains mildly enlarged. The vessels are not distended. No pleural effusions identified. No consolidation. IMPRESSION: Stable chest.
[2016-11-28] MEDS: SOLU-MEDROL IV SCH (11:08)
--- NOTE | 2016-11-28 11:50 | PROGRESS NOTE ---
DATE: 11/28/2016 PATIENT LOCATION: ICU 11. Mr. Yost is somewhat more alert. He is on cooling blanket. At 8 o'clock this temperature was 98.9 degrees and other vital signs were stable. He continues to be in atrial fibrillation. He is off Levophed drip but he is still on Cardizem drip. He is getting NG tube feeding. He is on the same IV antibiotics. His other lab data reveals a white count of 42,000, hemoglobin is 13.6, hematocrit is 45.2. Blood gases definitely show improvement and they are stable with him using 40% of FiO2. Spontaneous breathing rate is around 14 per minute. PEEP is at 5 cm. Electrolytes are stable. BUN is 82, creatinine 1.8. Overall condition is otherwise unchanged. We will continue with the current management on him.
[2016-11-28 13:40] LABS: ALLEN TEST YES; BE -1.4 mmoll (-3.0-3.0); BLOOD TYPE ARTERIAL; DRAW SITE R RADIAL; METHB 1.5 % (0.0-1.5); O2(CT) 19.2 mL/dL (15.0-23.0); PCO2(98.6) 29 mmHg (35-45); PO2(98.6) 111 mmHg (60-100); SAMPLE BLOOD; SAO2 99.8 % (95.0-100.0); THB 14.1 g/dL (11.5-17.4); pH(98.6) 7.47 (7.35-7.45)
[2016-11-28 13:41] LABS: MODALITY VENTILATOR
[2016-11-28] MEDS: LEVAQUIN 250 MG/D5W 50 ML IV SCH (15:05)
[2016-11-28] MEDS: SODIUM CHLORIDE 0.9% INJ SCH (20:26)
[2016-11-28] MEDS: PROTONIX IV SCH (20:26)
[2016-11-28] MEDS: DILAUDID IV PRN (21:27)
[2016-11-29] MEDS: SOLU-MEDROL IV SCH ×3 (00:18→23:03)
[2016-11-29] MEDS: VANCOMYCIN 1,500 MG in NS 250 ML IV SCH ×2 (00:18→23:03)
[2016-11-29] MEDS: HUMULIN R IV SCH ×7 (00:23→23:05)
[2016-11-29] MEDS: DILAUDID IV PRN ×2 (00:38→19:51)
[2016-11-29] MEDS: CARDIZEM 100 MG/NS 100 ML IV SCH (01:20)
[2016-11-29] MEDS: LOPRESSOR IV SCH ×3 (03:25→19:48)
[2016-11-29] MEDS: ZOSYN 2.25 GM/NS 50 ML IV SCH ×3 (03:25→15:21)
[2016-11-29 04:32] LABS: ALLEN TEST YES; BE -4.5 mmoll (-3.0-3.0); BLOOD TYPE ARTERIAL; DRAW SITE R RADIAL; METHB 1.4 % (0.0-1.5); O2(CT) 17.5 mL/dL (15.0-23.0); PCO2(98.6) 36 mmHg (35-45); PO2(98.6) 98 mmHg (60-100); SAMPLE BLOOD; SAO2 99.4 % (95.0-100.0); pH(98.6) 7.36 (7.35-7.45)
[2016-11-29 04:33] LABS: MODALITY COOL AEROSOL
[2016-11-29 05:26] LABS: HEMOGLOBIN 12.7 g/dL (14.0-18.0); MCH 27.1 PG (27-31); MCHC 29.5 g/dL (33-37); MCV 91.9 FL (81-99); PLT 212 X1000 (130-400); RBC 4.68 XMIL (4.7-6.1)
[2016-11-29 05:46] LABS: ALBUMIN 2.9 g/dL (3.5-5.0); CALCIUM 9.4 mg/dL (8.8-10.2); POTASSIUM 4.7 mmol/L (3.5-5.1); TOTAL BILIRUBIN 0.53 mg/dL (0.20-1.00); TOTAL PROTEIN 5.7 g/dL (6.3-8.3)
[2016-11-29] MEDS: SYNTHROID IV SCH (06:08)
[2016-11-29 06:29] LABS: BANDS 10 % (0-1); LYMPHS 6 % (21-51); MONO 6 % (1-9)
[2016-11-29] MEDS: D5W 1,000 ML IV SCH ×2 (07:39→17:26)
--- NOTE | 2016-11-29 07:59 | PROGRESS NOTE ---
DATE: 11/29/2016 SUBJECTIVE: He is off the ventilator. He is awake, alert, and interacts nonverbally. OBJECTIVE: Vital Signs: Blood pressure 101/66, heart rate 86, respirations 20, afebrile. Intake and output: Intake 1.1 L. Output 1.9 L. General: No acute distress. Skin: Warm and dry. HEENT: Conjunctivae are pink. Neck: Neck veins are not distended. Heart: Regular. Lungs: Have equal breath sounds. No crackles. Abdomen: Soft and nontender. Normal bowel sounds. Extremities: Have trace edema. No clubbing or cyanosis. LABORATORY DATA: Sodium 156, potassium 4.7, chloride 120, bicarbonate 19, BUN 96, creatinine 1.9. IMPRESSION: 1. Acute kidney injury overlying chronic kidney disease. His creatinine is back to his historical baseline. BUN is elevated. He will need some IV fluids. See below. 2. Electrolytes: Hypernatremia is worse again. His NG feedings have been discontinued and therefore he is not receiving his free water. I will begin D5 water at 100 mL an hour and observe his response. 3. Acid-base: Acceptable.
--- NOTE | 2016-11-29 09:25 | PROGRESS NOTE ---
DATE: 11/29/2016 Mr. Yost is alert. He is extubated and he is on a Ventimask. He is continuing on Cardizem drip. He is in regular sinus rhythm, at times, sinus tachycardia. Oxygen saturation is almost 100% on him. He still does not talk and his arms are somewhat flaccid. We will try to get a CT scan without contrast today and see if he has any evidence of a CVA. The lab data reveals that the white count is still continuing to go up. It is 53.56 today with banded neutrophils 10, segmented neutrophils 78. Arterial blood gases are satisfactory. Electrolytes are normal with elevation of sodium to 156. BUN is 96, creatinine is 1.9. His IV antibiotics include levofloxacin, vancomycin, piperacillin.
--- NOTE | 2016-11-29 09:51 | Diag Imaging Result Document ---
PROCEDURE NAME: CHEST-PORTABLE - 11/29/2016 SINGLE FRONTAL RADIOGRAPH OF THE CHEST: COMPARISON: 11/28/2016. FINDINGS: There has been interval extubation and removal of the NG tube. Right PICC line is stable. There is an infiltrate at the medial right lung base and perihilar regions bilaterally. They are perhaps slightly more dense than previous study. No other new consolidation is identified. Cardiac silhouette is stable. IMPRESSION: Increasing opacity at the medial right lung base and perihilar regions bilaterally.
[2016-11-29 13:00] LABS: URINE SOURCE CATH
[2016-11-29 13:02] LABS: BILIRUBIN URINE NEGATIVE (NEGATIVE); BLOOD URINE MODERATE (NEGATIVE); COLOR YELLOW; GLUCOSE URINE 500 mg/dL (NEGATIVE); LEUKOCYTES URINE MODERATE (NEGATIVE); NITRITE URINE NEGATIVE (NEGATIVE); PH URINE 5.5; PROTEIN URINE 30 mg/dL (NEGATIVE); SP GRAVITY URINE 1.021; TURBIDITY URINE TURBID (CLEAR); UROBILINOGEN URINE NORMAL (NORMAL)
[2016-11-29 13:11] LABS: UR EPITHELIAL CELLS <10 /HPF (<10); URINE BACTERIA NEGATIVE /HPF; URINE CULTURE NEEDED? YES; URINE MICRO REVIEW NEEDED? YES; URINE RBC TNTC /HPF (<10)
[2016-11-29 13:18] LABS: URINE CASTS NONE SEEN; URINE CRYSTALS NONE SEEN
[2016-11-29 13:19] LABS: URINE SMALL ROUND CELLS NONE SEEN
[2016-11-29] MEDS: LEVAQUIN 250 MG/D5W 50 ML IV SCH (15:20)
--- NOTE | 2016-11-29 17:46 | Diag Imaging Result Document ---
PROCEDURE NAME: HEAD W/O CONTRAST - 11/29/2016 CT OF THE HEAD WITHOUT CONTRAST: FINDINGS: There are calcifications in the left vertebral artery. There is no evidence of bleed, mass effect, or abnormal extra-axial fluid collection. Compared to the previous study of 04/08/2016 there has been no significant change in the appearance of the brain. IMPRESSION: No evidence of acute disease.
[2016-11-29] MEDS: SODIUM CHLORIDE 0.9% INJ SCH (19:48)
[2016-11-29] MEDS: PROTONIX IV SCH (19:48)
--- NOTE | 2016-11-29 19:49 | PROGRESS NOTE ---
DATE: 11/29/2016 PRESENT ILLNESS: Patient has severe pneumonia. MEDICATIONS: He is receiving currently vancomycin, Zosyn and Levaquin. PHYSICAL EXAMINATION: Vital Signs: Temperature is 99 degrees, pulse 100, respirations 25, and blood pressure 99/62. General: The patient looks ill, but he is not in any acute distress. His eyes are open but he does not seem to follow requests to do things like closing his eyes or moving his extremities. Lungs: Clear to auscultation. Cardiovascular: Regular heart rate. Abdomen: Soft and nontender. LABORATORY AND X-RAY: Chest x-ray shows increasing opacities. Urinalysis shows 10-20 white cells, but no bacteria. CT scan of the head showed no acute disease. Blood gases showed a pH of 7.36, a PO2 of 98, and a pCO2 of 36. Creatinine is 1.9. GFR is 36. Patient's CBC continues show increase in the white count with the white cell count today 53,560, hemoglobin 12.7, and platelet count 212,000. ASSESSMENT AND PLAN: 1. Patient has severe pneumonia. The plan now is to switch the patient from Zosyn to meropenem and add micafungin for the yeast that had been found in his sputum and urine. 2. Comorbidities: He has very severe chronic obstructive pulmonary disease.
[2016-11-29] MEDS: MERREM 1 GM in NS 50 ML IV SCH (19:56)
[2016-11-29] MEDS: MYCAMINE 100 MG in NS 100 ML IV SCH (19:56)
[2016-11-30] MEDS: MERREM 1 GM in NS 50 ML IV SCH ×3 (03:21→20:58)
[2016-11-30] MEDS: HUMULIN R IV SCH ×6 (03:21→23:35)
[2016-11-30] MEDS: LOPRESSOR IV SCH ×3 (03:21→20:57)
[2016-11-30] MEDS: D5W 1,000 ML IV SCH ×3 (03:33→23:41)
[2016-11-30 04:43] LABS: ALLEN TEST YES; BE -3.6 mmoll (-3.0-3.0); BLOOD TYPE ARTERIAL; DRAW SITE R RADIAL; METHB 1.5 % (0.0-1.5); O2(CT) 15.4 mL/dL (15.0-23.0); PCO2(98.6) 33 mmHg (35-45); PO2(98.6) 61 mmHg (60-100); SAMPLE BLOOD; SAO2 93.6 % (95.0-100.0); THB 12.2 g/dL (11.5-17.4)
[2016-11-30 04:44] LABS: MODALITY COOL AEROSOL
[2016-11-30 05:24] LABS: HEMATOCRIT 40.3 % (42.0-52.0); HEMOGLOBIN 11.8 g/dL (14.0-18.0); MCH 27.6 PG (27-31); MCHC 29.3 g/dL (33-37); MCV 94.2 FL (81-99); PLT 198 X1000 (130-400); RBC 4.28 XMIL (4.7-6.1)
[2016-11-30 05:49] LABS: ALBUMIN 2.5 g/dL (3.5-5.0); POTASSIUM 4.7 mmol/L (3.5-5.1); TOTAL BILIRUBIN 0.48 mg/dL (0.20-1.00); TOTAL PROTEIN 5.6 g/dL (6.3-8.3)
[2016-11-30] MEDS: SYNTHROID IV SCH ×2 (05:57→06:01)
--- NOTE | 2016-11-30 07:32 | Diag Imaging Result Document ---
PROCEDURE NAME: CHEST-PORTABLE - 11/30/2016 SINGLE FRONTAL RADIOGRAPH OF THE CHEST: COMPARISON: 11/29/2016. FINDINGS: Right PICC line is stable. Opacities at the medial right lung base and perihilar regions are, perhaps, marginally improved as compared to the previous study. No new consolidations are identified. Cardiac silhouette is stable. IMPRESSION: Suggestion of marginal improvement.
--- NOTE | 2016-11-30 07:33 | Diag Imaging Result Document ---
PROCEDURE NAME: KUB ABDOMEN - 11/30/2016 SINGLE SUPINE RADIOGRAPH OF THE ABDOMEN AND PELVIS: COMPARISON: 11/17/2015. FINDINGS: There is a fairly large amount of stool in the rectum, which may indicate constipation or a small rectal fecal impaction. There is no obstructive bowel pattern. There is no definite organomegaly. IMPRESSION: Fairly large amount of stool in the rectum suggesting possible constipation/small rectal fecal impaction. Please correlate clinically.
[2016-11-30] MEDS: DILAUDID IV PRN (08:45)
--- NOTE | 2016-11-30 08:52 | PROGRESS NOTE ---
DATE: 11/30/2016 Mr. Yost is more alert. He still does not move the extremities. His NG tube has been taken out. He is off Cardizem drip. His arterial blood gases were satisfactory. White count has come down from 53.56 to 46.95 which is a significant improvement. Electrolytes are stable. Sodium has come down from 156 to 151 and BUN has been down from 96 to 86, creatinine to 1.7. He had a brain scan done yesterday which was negative. The brain scan was done because he had some severe weakness in the extremities, more on the left side. We are going to put him on a full liquid diet and start physical therapy today. Overall condition is improving.
--- NOTE | 2016-11-30 09:27 | PROGRESS NOTE ---
DATE: 11/30/2016 SUBJECTIVE: Mr. Yost is resting quietly. He is awake and nonverbal. He is resting quietly on a high aerosol mask. OBJECTIVE: Vital Signs: Temperature 97.8 degrees, blood pressure 111/67, heart rate 109, respirations 23. He is on a 40% mask. His last recorded saturation was 98%. He has had 3045 in. He has had 2650 out per Franks catheter. Laboratory Data: This a.m., sodium 151, potassium 4.7, chloride is 119, CO2 18 , BUN 86, creatinine 1.7, glucose 197, his anion gap is 14, calcium 9. Albumin is 2.5. White count 46.95, hemoglobin 11.8, hematocrit 40.3, with a platelet count of 198,000. His ABGs, pH 7.4, CO2 33, PO2 61, bicarb 21.9. Physical Examination: General: This is a 61-year-old, white male. He is in no acute distress. Skin: Warm and dry. HEENT: Normocephalic, atraumatic. Conjunctive are pale. He has NIKA. Mucous membranes are moist. Neck: Supple. Trachea midline. No JVD. Cardiovascular: Regular rate and rhythm. He is tachycardic on the monitor. No murmur or gallop. Lungs : Have no crackles. Clear to auscultation anteriorly. He is on high cool aerosol mask. Equal excursion. Abdomen: Soft, nontender. Normal bowel sounds. Extremities: Have trace pretibial edema. No clubbing or cyanosis. Neurological: He is resting quietly. He opens his eyes to verbal. ASSESSMENT AND PLAN: 1. Acute kidney injury overlying chronic kidney disease. Creatinine is at his historical baseline in the 1.9 range. No indications for any changes. Continues with D5W at 100 mL an hour. 2. Electrolytes. Patient has mild hypernatremia. This has improved with D5W. We will leave this on at this time. 3. Acid-base balance. This is acceptable. 4. Anemia. This remains stable. 5. Leukocytosis. Patient remains on renal dosed antibiotics. I would to thank you for allowing us to follow with this patient. Seen, data reviewed, discussed with Elizabeth Simons on 11/30/15. I agree with the above assessment and plan of care. rg Dictated by BERLIN Keith MD [facility]
[2016-11-30] MEDS: SOLU-MEDROL IV SCH ×2 (11:19→23:34)
[2016-11-30] MEDS: LEVAQUIN 250 MG/D5W 50 ML IV SCH (15:33)
--- NOTE | 2016-11-30 18:22 | PROGRESS NOTE ---
DATE: 11/30/2016 PRESENT ILLNESS: The patient was admitted to the hospital with severe pneumonia. MEDICATIONS: He is on vancomycin, Zosyn and Levaquin. Last night micafungin was added. PHYSICAL EXAMINATION: Vital Signs: Temperature is 98.6 degrees, pulse 111, respirations 24, blood pressure 118/73. General: This is an ill-appearing middle-aged male. He is in no acute distress. Chest: The patient has an increased AP diameter. Neurologic: He is lethargic. He did turn his head to verbal stimuli, but when I asked him to move his arms and legs he did not. Lungs: Clear to auscultation. Cardiovascular: Regular heart rate. Abdomen: Soft and nontender. LAB AND X-RAY: Chest x-ray shows improvement. The patient's CBC today shows a white count of 46,950, hemoglobin 11.8, and platelet count 198,000. The blood gases show a pH of 7.4, PO2 of 61, pCO2 of 38. The patient's creatinine is 1.7. The GFR is 41. ASSESSMENT AND PLAN: The patient has severe pneumonia. It appears today that there is improvement, therefore, it would be reasonable to continue his current antimicrobial agents including Levaquin, meropenem, vancomycin and micafungin. COMORBIDITIES: He has severe chronic obstructive pulmonary disease.
[2016-11-30] MEDS: PROTONIX IV SCH (20:57)
[2016-11-30] MEDS: MYCAMINE 100 MG in NS 100 ML IV SCH (20:58)
[2016-11-30] MEDS: VANCOMYCIN 1,500 MG in NS 250 ML IV SCH (23:36)
[2016-12-01] MEDS: LOPRESSOR IV SCH ×3 (03:05→20:36)
[2016-12-01] MEDS: MERREM 1 GM in NS 50 ML IV SCH ×3 (03:05→20:36)
[2016-12-01] MEDS: HUMULIN R IV SCH ×5 (04:21→21:19)
[2016-12-01 04:54] LABS: ALLEN TEST YES; BE -4.3 mmoll (-3.0-3.0); BLOOD TYPE ARTERIAL; DRAW SITE L RADIAL; METHB 2.5 % (0.0-1.5); PCO2(98.6) 30 mmHg (35-45); PO2(98.6) 84 mmHg (60-100); SAMPLE BLOOD; SAO2 100.3 % (95.0-100.0); THB 3.6 g/dL (11.5-17.4); pH(98.6) 7.43 (7.35-7.45)
[2016-12-01 04:55] LABS: MODALITY CANNULA
[2016-12-01 05:59] LABS: HEMOGLOBIN 12.4 g/dL (14.0-18.0); MCH 28.2 PG (27-31); MCHC 30.2 g/dL (33-37); MCV 93.2 FL (81-99); PLT 191 X1000 (130-400)
[2016-12-01] MEDS: SYNTHROID IV SCH (06:02)
[2016-12-01 06:03] LABS: ALBUMIN 2.3 g/dL (3.5-5.0); CALCIUM 8.9 mg/dL (8.8-10.2); POTASSIUM 4.4 mmol/L (3.5-5.1); TOTAL BILIRUBIN 0.46 mg/dL (0.20-1.00); TOTAL PROTEIN 5.4 g/dL (6.3-8.3)
--- NOTE | 2016-12-01 08:40 | Diag Imaging Result Document ---
PROCEDURE NAME: CHEST-PORTABLE - 12/01/2016 SINGLE FRONTAL RADIOGRAPH OF THE CHEST: COMPARISON: 11/30/2016. FINDINGS: Right-sided PICC line is stable. Mild opacity at the medial right lung base and perihilar regions bilaterally are stable. No new consolidations are identified. Cardiac silhouette is stable. IMPRESSION: Stable chest.
[2016-12-01] MEDS: D5W 1,000 ML IV SCH ×2 (09:17→23:00)
--- NOTE | 2016-12-01 09:59 | PROGRESS NOTE ---
DATE: 12/01/2016 SUBJECTIVE: Mr. Yost continues to be very confused. He does not talk much. He has difficulty in talking. He cannot raise the extremities and liquor maker are very poor. He had a right-sided PICC line, which is stable. He had some bilateral pneumonia, which are improving. CBC had revealed a white count is slowly coming down. It is 42.44. Hemoglobin is 12.4. INR is 1.07. Last ABGs are satisfactory. His electrolytes are stable. BUN is coming down to 73, creatinine 1.5. Oral intake is very poor. We do not know why his mental status and neurological status is not improving. He does not move his upper extremities at all. We will try to get a neurology consultation. A CT scan of the brain, which was done yesterday, was which the day before yesterday, did not show any evidence of acute disease.
[2016-12-01] MEDS: SOLU-MEDROL IV SCH ×2 (11:07→22:56)
--- NOTE | 2016-12-01 11:39 | CONSULTATION ---
DATE OF CONSULTATION: 12/01/2016 Mr. Yost was admitted a good while back with respiratory problems. He required intubation and mechanical ventilation with heavy sedation for a period of time. He has been off the ventilator and extubated in recent days. He has been noted to seem unable to move his limbs. Review of computer records shows sodium 156 earlier but down to 148 more recently. He had significant hyperkalemia earlier but stable potassium recently. His BUN climbed into the 70s and 80s in recent weeks. Blood sugar was as high as 491 on 11/19/2016 but mostly 180s to the low 200s in the last few days. Noncontrast CT of the head done 11/29/2016 is reported to show usual changes, nothing focal or acute, nothing significantly different compared to a scan. There is reported past history of atrial fibrillation, congestive heart failure , ischemic heart disease, and admission this time with pneumonia. PHYSICAL EXAMINATION: On exam now, Mr. Yost is supine, awake and alert. He was incompletely attentive. He followed some simple commands inconsistently. He has full lateral eye movement with passive head turning. Pupils react briskly to bright light. Facial motility seems a little bit diminished bilaterally, but symmetric. Tongue is midline. His limbs are flaccid. Plantar response is silent bilaterally. Reflexes are absent throughout. I did not get him to produce any definite consistent voluntary motor movement in the limbs, but nursing staff reports he has had some feeble semiconductor processor to their command in recent days. IMPRESSION: Diffuse weakness with lower motor neuron pattern. 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 Recent steroid doses seem insufficient to produce a steroid myopathy. We will plan EMG/nerve conduction study and further plans will depend on that report. Thanks for asking me to see Mr. Yost. [facility]
--- NOTE | 2016-12-01 13:00 | PROGRESS NOTE ---
DATE: 12/01/2016 SUBJECTIVE: He is awake and alert. His speech is confused. OBJECTIVE: Vital Signs: Blood pressure 111/70, heart rate 111, respirations 23. Afebrile. Intake 2.9 L. Output 2.3 L. No acute distress. Skin: Warm and dry. HEENT: Conjunctivae are pink. Neck: Neck veins not visible. Heart: Regular and tachycardic. Lungs: Have equal breath sounds. No crackles. Abdomen: Soft, nontender. Bowel sounds present. Extremities: Have minimal edema. No clubbing or cyanosis. LABORATORY DATA: Sodium 148, potassium 4.4, chloride 116, bicarbonate 17, BUN 73, creatinine 1.5. IMPRESSION: 1. Acute kidney injury overlying chronic kidney disease. At his historical baseline. 2. Electrolytes: Hypernatremia is improving on D5. 3. Acid-base acceptable. 4. We will sign off at this time. If I can be of further assistance, please do not hesitate to call.
[2016-12-01] MEDS: LEVAQUIN 250 MG/D5W 50 ML IV SCH (14:54)
[2016-12-01] MEDS: CARDIZEM PO SCH ×2 (17:06→21:25)
--- NOTE | 2016-12-01 17:37 | PROGRESS NOTE ---
DATE: 12/01/2016 PRESENT ILLNESS: The patient currently is being treated for bilateral pneumonia. He also had fungal urinary tract infection for which he is on medication as well. MEDICATIONS: The patient is receiving vancomycin, Zosyn Levaquin, and micafungin which was added yesterday. This is day 2 of meropenem, day 2 of micafungin, and this is day 13 of treatment with vancomycin and day 3 of treatment with Levaquin. PHYSICAL EXAMINATION: Vital Signs: Temperature is 98.9 degrees, pulse 117, respirations 37, blood pressure is 106/85. General: This is an ill-appearing, middle-aged male. He is in no acute distress. Lungs: Bilateral rhonchi. Cardiovascular: Heart rate is rapid and regular. Thorax: Patient has an increased AP diameter to the chest. Lungs: Bilateral rhonchi. Abdomen: Soft and nontender. LAB AND X-RAY: Chest x-ray shows stable bilateral infiltrates. CBC shows a white count of 42,440, hemoglobin 12.4, and platelet count 191,000. Patient's blood gases show a pH of 7.43, a PO2 of 84, pCO2 of 30. Creatinine is 1.5. The GFR is 48. The patient's urine grew yeast. Blood cultures are sterile. ASSESSMENT AND PLAN: Patient appears to have pneumonia and a fungal urinary tract infection. He also has altered mental status. Patient's comorbidity is chronic obstructive pulmonary disease.
[2016-12-01] MEDS: PROTONIX IV SCH (20:36)
[2016-12-01] MEDS: MYCAMINE 100 MG in NS 100 ML IV SCH (20:37)
[2016-12-01] MEDS: VANCOMYCIN 1,500 MG in NS 250 ML IV SCH (22:56)
[2016-12-02] MEDS: DILAUDID IV PRN ×2 (00:45→11:59)
[2016-12-02] MEDS: HUMULIN R IV SCH ×7 (00:48→23:39)
[2016-12-02 04:07] LABS: ALLEN TEST YES; BLOOD TYPE ARTERIAL; DRAW SITE R RADIAL; METHB 1.4 % (0.0-1.5); PCO2(98.6) 30 mmHg (35-45); PO2(98.6) 88 mmHg (60-100); SAMPLE BLOOD; SAO2 99.1 % (95.0-100.0); THB 17.3 g/dL (11.5-17.4); pH(98.6) 7.36 (7.35-7.45)
[2016-12-02 04:08] LABS: MODALITY CANNULA
[2016-12-02] MEDS: LOPRESSOR IV SCH ×3 (04:28→19:52)
[2016-12-02] MEDS: MERREM 1 GM in NS 50 ML IV SCH ×3 (04:28→19:52)
[2016-12-02] MEDS: CARDIZEM PO SCH ×4 (04:29→20:31)
[2016-12-02 05:42] LABS: ALBUMIN 2.2 g/dL (3.5-5.0); CALCIUM 9.1 mg/dL (8.8-10.2); POTASSIUM 4.4 mmol/L (3.5-5.1); TOTAL BILIRUBIN 0.53 mg/dL (0.20-1.00); TOTAL PROTEIN 5.5 g/dL (6.3-8.3)
[2016-12-02 05:55] LABS: HEMATOCRIT 40.8 % (42.0-52.0); HEMOGLOBIN 12.3 g/dL (14.0-18.0); MCHC 30.1 g/dL (33-37); MCV 92.7 FL (81-99); PLT 200 X1000 (130-400)
[2016-12-02] MEDS: SYNTHROID IV SCH (06:21)
--- NOTE | 2016-12-02 07:05 | Diag Imaging Result Document ---
PROCEDURE NAME: CHEST-PORTABLE - 12/02/2016 PORTABLE CHEST: COMPARISON: Compared to 12/01/2016. FINDINGS: The lungs are well expanded. Sternal wires are present. No change in the right-sided PICC line. No pleural effusions identified. No consolidation. The right hemidiaphragm is elevated. The overall appearance is quite similar to that of the prior exam. IMPRESSION: Stable chest.
[2016-12-02] MEDS: D5W 1,000 ML IV SCH ×2 (09:09→19:51)
--- NOTE | 2016-12-02 09:22 | PROGRESS NOTE ---
DATE: 12/02/2016 SUBJECTIVE: Mr. Yost talks like he is just murmuring. He does not come out with the right answer, which he does not move his extremities. It appears that his oral intake is poor, even though he does not have any swallowing difficulty apparently. He was seen by Dr. Montana yesterday, who thinks he has lower motor neuron type of paralysis, probably something like Guillain-Crescent or polyneuropathy. He does not move any extremity effectively. His hypotonic reflexes are very sluggish. PHYSICAL EXAMINATION: Otherwise is unchanged. White count is 37.57. Blood gases are satisfactory. Lactate level is 1.3. Electrolytes are normal. BUN is coming down to 68, creatinine 1.5. Blood sugar is 271. Overall condition is about the same. We will start nasogastric tube feeding on him.
--- NOTE | 2016-12-02 09:27 | PROGRESS NOTE ---
DATE: 12/02/2016 PATIENT LOCATION: Room ICU 11. SUBJECTIVE: Mr. Yost is more alert today. OBJECTIVE: He did not follow simple commands absolutely consistently but was much more consistent than yesterday. He raised each arm at the elbow and raised his hands from the bed. He provided a feeble pipe cleaner to command bilaterally. He has better power in finger flexors than in the finger extensors. He has good facial motility. 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 PLAN: Plan is to get the EMG/NCV report and then consider further management options. Thanks for allowing me to follow Mr. Yost. [facility]
--- NOTE | 2016-12-02 11:00 | Diag Imaging Result Document ---
PROCEDURE NAME: CHEST/ABD TUBE PLACEMENT - 12/02/2016 AP CHEST AND ABDOMEN FOR NG TUBE PLACEMENT: FINDINGS: The tip is in the fundus of the stomach. There is gas in the colon. IMPRESSION: Tip in the stomach.
[2016-12-02] MEDS: SOLU-MEDROL IV SCH ×2 (11:47→23:29)
[2016-12-02] MEDS: LEVAQUIN 250 MG/D5W 50 ML IV SCH (16:43)
--- NOTE | 2016-12-02 18:33 | PROGRESS NOTE ---
DATE: 12/02/2016 PRESENT ILLNESS: The patient has a bilateral pneumonia. CURRENT MEDICATIONS: Include the following: He has day 3 of meropenem and micafungin and day 14 of treatment with vancomycin and day 4 of treatment with Levaquin. PHYSICAL EXAMINATION: Vital Signs: Temperature is 98.4 degrees, pulse 110, respirations 22, blood pressure 109/52. Generally: This is a fairly healthy-appearing, middle-aged male. He is more awake today and seems to respond to verbal stimuli. Ears, nose and throat: No drainage noted from the nose or ears. Lungs: Clear to auscultation. Chest: There is an increased diameter of the lungs. Cardiovascular: Regular heart rate. Abdomen: Soft and nontender. LAB AND X-RAY: [place] [address], hemoglobin 12.3, and platelet count 200,000. Patient's blood gases show a pH of 7.36, a PO2 of 88, and a pCO2 of 30. Patient's creatinine is 1.5. The GFR is 48. Liver function studies are normal. Chest x-ray showed no marked change. ASSESSMENT AND PLAN: Patient has pneumonia, has a fungal urinary tract infection. He has had an altered mental status. The plan is to continue with treatments except seeing as how the patient has been on vancomycin for 14 days, I am planning to stop it. COMORBIDITY: He has COPD.
[2016-12-02] MEDS: MYCAMINE 100 MG in NS 100 ML IV SCH (19:52)
[2016-12-02] MEDS: PROTONIX IV SCH (19:52)
[2016-12-02] MEDS: NORCO-7.5 PO PRN (23:28)
[2016-12-03] MEDS: LOPRESSOR IV SCH ×3 (03:52→20:05)
[2016-12-03] MEDS: MERREM 1 GM in NS 50 ML IV SCH ×3 (03:52→20:09)
[2016-12-03] MEDS: CARDIZEM PO SCH ×3 (04:04→20:11)
[2016-12-03] MEDS: HUMULIN R IV SCH ×5 (04:44→20:03)
[2016-12-03 05:08] LABS: BE -5.7 mmoll (-3.0-3.0); BLOOD TYPE ARTERIAL; DRAW SITE R RADIAL; METHB 0.8 % (0.0-1.5); O2(CT) 15.9 mL/dL (15.0-23.0); PCO2(98.6) 29 mmHg (35-45); PO2(98.6) 101 mmHg (60-100); SAMPLE BLOOD; SAO2 100.9 % (95.0-100.0); THB 11.6 g/dL (11.5-17.4)
[2016-12-03 05:09] LABS: ALLEN TEST YES
[2016-12-03 05:10] LABS: MODALITY CANNULA
[2016-12-03] MEDS: D5W 1,000 ML IV SCH ×2 (05:57→15:56)
[2016-12-03] MEDS: SYNTHROID IV SCH (06:00)
[2016-12-03 07:14] LABS: HEMATOCRIT 37.3 % (42.0-52.0); HEMOGLOBIN 11.4 g/dL (14.0-18.0); MCH 27.8 PG (27-31); MCHC 30.6 g/dL (33-37); PLT 160 X1000 (130-400)
[2016-12-03 07:39] LABS: ALBUMIN 2.2 g/dL (3.5-5.0); CALCIUM 8.8 mg/dL (8.8-10.2); POTASSIUM 4.2 mmol/L (3.5-5.1); TOTAL BILIRUBIN 0.36 mg/dL (0.20-1.00); TOTAL PROTEIN 5.3 g/dL (6.3-8.3)
--- NOTE | 2016-12-03 07:44 | Diag Imaging Result Document ---
PROCEDURE NAME: CHEST-PORTABLE - 12/03/2016 SINGLE FRONTAL RADIOGRAPH OF THE CHEST: COMPARISON: 12/02/2016. FINDINGS: There is an NG tube that projects below the diaphragm and is assumed to be in the lumen of the stomach. Right PICC line is in stable position. There is stable elevation of the right hemidiaphragm, and there is suggestion of mild right basilar atelectasis similar to the previous study. No new consolidation is appreciated. There is stable cardiomegaly. IMPRESSION: Essentially stable chest.
--- NOTE | 2016-12-03 11:19 | PROGRESS NOTE ---
DATE: 12/03/2016 Mr. Yost is a little bit more alert, a little bit brighter, following simple commands a little bit more consistently today. He moved all limbs voluntarily. He continues to have good facial motility and lateral eye movements. His nerve conduction and EMG study showed evidence of diffuse sensory motor peripheral neuropathy but no definite evidence of active myopathy. Overall, his clinical findings, the EMG/NCV findings, clinical course seem most consistent with a diagnosis of critical illness polyneuropathy. Myopathy is not completely excluded but seems less likely. Acute idiopathic demyelinating polyneuropathy (Guillain-Callender) remains a consideration but seems less likely in light of the clinical setting. We do not have any specific documented proven management for this syndrome. We need to continue aggressive management of blood sugar, metabolic problems, minimize sedatives, continue physical therapy. He is getting moderate dose steroids and that seems to be providing medical benefit. I do not think that is contributing significantly to his neuromuscular problems. We might consider empiric course of IV immunoglobulin with question of autoimmune/Guillain-Callender etiology but, as above, clinical features are more typical of critical illness polyneuropathy, and IVIG has not been proven beneficial for this. No urgent suggestions. Thanks for allowing me to follow Mr. Yost. [facility]
[2016-12-03] MEDS: SOLU-MEDROL IV SCH ×2 (11:21→23:45)
[2016-12-03] MEDS: NORCO-7.5 PO PRN ×2 (11:45→21:06)
[2016-12-03] MEDS: LEVAQUIN 250 MG/D5W 50 ML IV SCH (15:56)
--- NOTE | 2016-12-03 19:52 | PROGRESS NOTE ---
DATE: 12/03/2016 PRESENT ILLNESS: The patient was being treated for bilateral pneumonia. On his most recent x-ray today no consolidation was seen. MEDICATIONS: The patient is on day 4 of meropenem and micafungin, and day 5 of Levaquin. The patient was on vancomycin but this was discontinued yesterday. PHYSICAL EXAMINATION: Vital Signs: Temperature is 97.4, pulse 91, respirations 21, blood pressure 115/64. General: This is a somewhat ill-appearing, middle-aged male. He is in no acute distress but he has an altered mental status. Lungs: Clear to auscultation. Cardiovascular: Regular heart rate. Thorax: Increased AP diameter of the chest. Abdomen: Soft and nontender. Neurologic: He did not respond to verbal request. LAB AND X-RAY: CBC-WBC 29.84, hgb 11.4, platelets 160K. Creatinine-1.3. GFR-57. Chest [id number], no new consolidation. ASSESSMENT AND PLAN: The patient has leukocytosis. His pneumonia looks as though it has cleared. He does have a fungal urinary tract infection as well as altered mental status. As mentioned above, I am going to continue his antibiotics in view of the fact that his white count seems to be decreasing on them. COMORBIDITY: He has COPD. [facility]
[2016-12-03] MEDS: MYCAMINE 100 MG in NS 100 ML IV SCH (20:10)
[2016-12-03] MEDS: PROTONIX IV SCH (20:11)
[2016-12-04] MEDS: HUMULIN R IV SCH ×6 (00:45→20:23)
[2016-12-04] MEDS: D5W 1,000 ML IV SCH ×3 (00:46→20:22)
[2016-12-04 04:32] LABS: ALLEN TEST YES; BE -4.6 mmoll (-3.0-3.0); BLOOD TYPE ARTERIAL; DRAW SITE R RADIAL; METHB 0.6 % (0.0-1.5); O2(CT) 16.2 mL/dL (15.0-23.0); PCO2(98.6) 30 mmHg (35-45); PO2(98.6) 89 mmHg (60-100); SAMPLE BLOOD; SAO2 100.7 % (95.0-100.0); pH(98.6) 7.41 (7.35-7.45)
[2016-12-04 04:33] LABS: MODALITY CANNULA
[2016-12-04] MEDS: MERREM 1 GM in NS 50 ML IV SCH ×3 (04:45→20:25)
[2016-12-04] MEDS: CARDIZEM PO SCH ×3 (04:45→20:23)
[2016-12-04] MEDS: LOPRESSOR IV SCH ×3 (04:45→20:26)
[2016-12-04] MEDS: NORCO-7.5 PO PRN ×2 (04:52→11:51)
[2016-12-04] MEDS: SYNTHROID IV SCH (06:26)
[2016-12-04 07:09] LABS: HEMATOCRIT 37.6 % (42.0-52.0); HEMOGLOBIN 11.4 g/dL (14.0-18.0); MCH 27.8 PG (27-31); MCHC 30.3 g/dL (33-37); MCV 91.7 FL (81-99); PLT 166 X1000 (130-400)
[2016-12-04 07:15] LABS: AGAP 16; ALBUMIN 2.3 g/dL (3.5-5.0); ALKALINE PHOSPHATASE 113 U/L (32-122); BUN 52 mg/dL (8-22); CALCIUM 8.9 mg/dL (8.8-10.2); CHLORIDE 110 mmol/L (98-107); COSMO 307; GOT 29 U/L (10-34); GPT 29 U/L (10-44); POTASSIUM 4.3 mmol/L (3.5-5.1); SODIUM 144 mmol/L (136-145); TCO2 18 mmol/L (25-35); TOTAL BILIRUBIN 0.34 mg/dL (0.20-1.00); TOTAL PROTEIN 5.4 g/dL (6.3-8.3)
--- NOTE | 2016-12-04 09:57 | Diag Imaging Result Document ---
PROCEDURE NAME: CHEST-PORTABLE - 12/04/2016 PORTABLE CHEST X-RAY: COMPARISON: 12/03/2016. FINDINGS: Stable nasogastric tube and right PICC line in good position. Stable cardiomegaly. Stable mild right basilar infiltrate with right hemidiaphragm elevation. No new infiltrates. IMPRESSION: No change from prior.
[2016-12-04] MEDS: SOLU-MEDROL IV SCH ×2 (11:46→23:58)
--- NOTE | 2016-12-04 12:35 | PROGRESS NOTE ---
DATE: 12/04/2016 SUBJECTIVE: The patient complains of his lower back hurting. He does have some pain medicine for that, and he is about to get some. OBJECTIVE: Vital signs: Blood pressure 109/64, respirations 18, pulse 94 and regular, temp 97.9 degrees Fahrenheit. HEENT: He is normocephalic, EOMs intact. PERRLA. Throat clear. Lungs: Sound fairly clear to auscultation and percussion without rhonchi, rales, or wheezes. Heart: Regular rate and rhythm to sinus tachycardia. Abdomen: Soft with active bowel sounds, no organomegaly or tenderness. NEUROLOGICAL: The patient does have some neuropathy in the lower extremities, consider critical illness neuropathy at this point. IMAGING: Chest x-ray shows a mild right basilar infiltrate, so pneumonia overall has gotten better. He had been on the ventilator earlier. LABORATORY DATA: White count is still high at 33,360. The patient also had a fungal UTI and is on medication for that. PLAN: Will continue his IV antibiotics and IV antifungal medication. Will continue support.
--- NOTE | 2016-12-04 15:31 | Diag Imaging Result Document ---
PROCEDURE NAME: CHEST-PORTABLE - 12/04/2016 PORTABLE CHEST X-RAY: TIME: 1515 hours. COMPARISON: 0500 hours. FINDINGS: There is a stable nasogastric tube in the stomach in good position. This is unchanged. IMPRESSION: Nasogastric tube is in the stomach.
[2016-12-04] MEDS: LEVAQUIN 250 MG/D5W 50 ML IV SCH (15:36)
[2016-12-04] MEDS: MYCAMINE 100 MG in NS 100 ML IV SCH (20:18)
[2016-12-04] MEDS: PROTONIX IV SCH (20:22)
[2016-12-05] MEDS: HUMULIN R IV SCH ×7 (00:01→23:38)
[2016-12-05 04:12] LABS: ALLEN TEST YES; BE 0.2 mmoll (-3.0-3.0); BLOOD TYPE ARTERIAL; DRAW SITE R RADIAL; METHB 1.7 % (0.0-1.5); O2(CT) 15.3 mL/dL (15.0-23.0); PCO2(98.6) 31 mmHg (35-45); PO2(98.6) 86 mmHg (60-100); SAMPLE BLOOD; SAO2 98.2 % (95.0-100.0); THB 11.4 g/dL (11.5-17.4); pH(98.6) 7.48 (7.35-7.45)
[2016-12-05 04:15] LABS: MODALITY CANNULA
[2016-12-05] MEDS: MERREM 1 GM in NS 50 ML IV SCH ×3 (04:27→20:00)
[2016-12-05] MEDS: LOPRESSOR IV SCH ×3 (04:27→20:12)
[2016-12-05] MEDS: CARDIZEM PO SCH ×3 (04:27→20:01)
[2016-12-05 06:30] LABS: AGAP 15; ALKALINE PHOSPHATASE 108 U/L (32-122); BUN 47 mg/dL (8-22); CALCIUM 8.9 mg/dL (8.8-10.2); CHLORIDE 107 mmol/L (98-107); COSMO 301; GOT 25 U/L (10-34); GPT 24 U/L (10-44); POTASSIUM 4.7 mmol/L (3.5-5.1); SODIUM 141 mmol/L (136-145); TCO2 19 mmol/L (25-35); TOTAL BILIRUBIN 0.38 mg/dL (0.20-1.00); TOTAL PROTEIN 5.2 g/dL (6.3-8.3)
[2016-12-05 06:45] LABS: HEMATOCRIT 35.4 % (42.0-52.0); HEMOGLOBIN 11.2 g/dL (14.0-18.0); MCH 27.9 PG (27-31); MCHC 31.6 g/dL (33-37); MCV 88.1 FL (81-99); PLT 154 X1000 (130-400); RBC 4.02 XMIL (4.7-6.1)
[2016-12-05] MEDS: SYNTHROID IV SCH (06:49)
[2016-12-05] MEDS: D5W 1,000 ML IV SCH ×2 (06:49→16:45)
--- NOTE | 2016-12-05 11:34 | Diag Imaging Result Document ---
PROCEDURE NAME: CHEST-PORTABLE - 12/05/2016 PORTABLE CHEST X-RAY, 12/05/2016: COMPARISON: 12/04/2016. FINDINGS: There is a nasogastric tube with the tip in the stomach. Stable significant cardiomegaly. Pulmonary vascularity is distended and indistinct suggesting some early pulmonary edema. No new consolidations. There is a stable right PICC line. IMPRESSION: No change from prior.
[2016-12-05] MEDS: SOLU-MEDROL IV SCH ×2 (11:51→23:39)
[2016-12-05] MEDS ORDERED: DULCOLAX PR ONE (12:00)
--- NOTE | 2016-12-05 14:38 | PROGRESS NOTE ---
DATE: 12/05/2016 SUBJECTIVE: Belly is hurting a little bit. It feels a little distended. I will give him a Dulcolax suppository. He already has an NG tube down. Chest x-ray showed good placement of the NG tube, and it may be a little early mild pulmonary edema. OBJECTIVE: Vital Signs: Blood pressure 118/75, respirations 20, pulse 114 and regular. Temperature 98.3 degrees Fahrenheit. HEENT: Normocephalic. EOMs intact. PERRLA. Throat clear. Lungs: Clear to auscultation and percussion without rhonchi, rales, or wheezes. Heart: Regular rate and rhythm without murmurs, gallops, or friction rubs. Abdomen: Soft. Active bowel sounds. It is a little distended and a little diffuse tenderness. Neurologic: Intact grossly. LABORATORY DATA: White count 32,090, hemoglobin 11.2. White count had been 46,000 and actually up to 53,000 at one time. Blood gas was stable this morning. Blood sugar 226. Otherwise, chemistry profile essentially normal. ASSESSMENT: 1. Respiratory distress. 2. Pneumonia. 3. Urinary tract infection. 4. Abdominal distention. 5. Leukocytosis. PLAN: Continue support.
[2016-12-05] MEDS: LEVAQUIN 250 MG/D5W 50 ML IV SCH (16:45)
[2016-12-05] MEDS: PROTONIX IV SCH (20:00)
[2016-12-05] MEDS: MYCAMINE 100 MG in NS 100 ML IV SCH (20:00)
[2016-12-05] MEDS: NORCO-7.5 PO PRN (23:55)
[2016-12-06] MEDS: D5W 1,000 ML IV SCH ×2 (02:27→13:46)
[2016-12-06] MEDS: LOPRESSOR IV SCH ×3 (04:07→20:00)
[2016-12-06] MEDS: HUMULIN R IV SCH ×5 (04:07→20:43)
[2016-12-06] MEDS: CARDIZEM PO SCH ×2 (04:10→13:46)
[2016-12-06] MEDS: MERREM 1 GM in NS 50 ML IV SCH ×3 (04:10→20:24)
[2016-12-06 04:39] LABS: ALLEN TEST YES; BE -2.7 mmoll (-3.0-3.0); BLOOD TYPE ARTERIAL; DRAW SITE R RADIAL; METHB 1.2 % (0.0-1.5); MODALITY CANNULA; O2(CT) 17.1 mL/dL (15.0-23.0); PCO2(98.6) 27 mmHg (35-45); PO2(98.6) 114 mmHg (60-100); SAMPLE BLOOD; THB 12.5 g/dL (11.5-17.4); pH(98.6) 7.47 (7.35-7.45)
[2016-12-06] MEDS: SYNTHROID IV SCH (06:03)
--- NOTE | 2016-12-06 07:40 | Diag Imaging Result Document ---
PROCEDURE NAME: CHEST-PORTABLE - 12/06/2016 AP PORTABLE CHEST AT 0500 HOURS: FINDINGS: There is an NG tube which passes below the diaphragm. There is apparent atelectasis in the right middle lobe which was also present on 12/05/2016. Overall there has been no significant change since 12/04/2016. IMPRESSION: Right middle lobe atelectasis.
[2016-12-06 07:53] LABS: HEMATOCRIT 38.4 % (42.0-52.0)
[2016-12-06 08:03] LABS: HEMOGLOBIN 12.3 g/dL (14.0-18.0); MCH 28.2 PG (27-31); MCV 88.1 FL (81-99); PLT 170 X1000 (130-400); RBC 4.36 XMIL (4.7-6.1)
[2016-12-06 08:05] LABS: AGAP 18; ALBUMIN 2.1 g/dL (3.5-5.0); ALKALINE PHOSPHATASE 125 U/L (32-122); BUN 50 mg/dL (8-22); CALCIUM 8.6 mg/dL (8.8-10.2); CHLORIDE 100 mmol/L (98-107); COSMO 297; GOT 27 U/L (10-34); GPT 24 U/L (10-44); POTASSIUM 4.8 mmol/L (3.5-5.1); SODIUM 137 mmol/L (136-145); TCO2 19 mmol/L (25-35); TOTAL BILIRUBIN 0.55 mg/dL (0.20-1.00); TOTAL PROTEIN 5.4 g/dL (6.3-8.3)
[2016-12-06] MEDS ORDERED: MILK OF MAGNESIA PO PRN (09:02)
--- NOTE | 2016-12-06 09:29 | PROGRESS NOTE ---
DATE: 12/06/2016 Mr. Yost is alert. He is breathing. His most normal vital signs reveal temperature normal, pulse 107 per minute. He is in sinus tachycardia. O2 saturation is 99%. He still cannot move. His abdomen is distended. He has not had a good bowel movement. He still cannot move his extremities. He is having some increased power in the upper extremities. However, the lower extremities are still hypertonic and he does not move. His white count is 47.13. The pCO2 is 27, pH 7.47, PO2 of 114. Electrolytes are normal. BUN is coming down. It is down to 50. Overall condition is unchanged. He is getting passive physical therapy for range of motion. We will continue with the current management on him. Later on, we may suddenly have to think about the rehab for him.
--- NOTE | 2016-12-06 10:31 | Diag Imaging Result Document ---
PROCEDURE NAME: KUB ABDOMEN - 12/06/2016 PORTABLE KUB: FINDINGS: There is gas in the stomach, colon, and small bowel. There is a similar quantity of colonic gas as on 12/02/2016. There is an NG tube in the stomach. IMPRESSION: Ileus.
[2016-12-06] MEDS: SOLU-MEDROL IV SCH (13:46)
--- NOTE | 2016-12-06 13:58 | PROGRESS NOTE ---
DATE: 12/06/2016 PATIENT LOCATION: ICU bed 11. SUBJECTIVE: Mr. Yost is initially asleep but was easily waked and was more attentive than when I last saw him. He followed simple commands more briskly and more consistently. He said some words that I could understand. He demonstrated voluntary power in all limbs. He continues diffusely weak with lower motor neuron pattern. Plantar response is silent bilaterally. He remains areflexic. He has full lateral eye movements. Facial motility is good. Tongue is midline. IMPRESSION: Continued diffuse weakness, lower motor neuron pattern, clinical findings and course most consistent with critical illness polyneuropathy. No new suggestion from a neurologic standpoint. He seems to be slowly improving. [facility]
[2016-12-06] MEDS: LEVAQUIN 250 MG/D5W 50 ML IV SCH (15:21)
--- NOTE | 2016-12-06 16:12 | Diag Imaging Result Document ---
PROCEDURE NAME: US ABDOMEN-COMPLETE - 12/06/2016 COMPLETE ABDOMINAL ULTRASOUND: COMPARISON: 11/05/2016. FINDINGS: The gallbladder is grossly unremarkable with no stones, wall thickening, or pericholecystic fluid. The common bile duct is normal in diameter. Sonographic Abraham's sign was reported to be negative. The pancreas is obscured by bowel gas. There is trace fluid tracking around the liver. The liver is grossly unremarkable, otherwise. The spleen is unremarkable. The distal aorta is obscured by bowel gas. The remainder of the aorta and the IVC are grossly unremarkable. The kidneys are grossly unremarkable. IMPRESSION: Trace fluid tracking around the liver. Essentially unremarkable, otherwise.
[2016-12-06] MEDS ORDERED: VANCOMYCIN IV PER PHARMACY MISC SCH (17:15)
[2016-12-06] MEDS: VANCOMYCIN 2 GM in NS 500 ML IV SCH (19:22)
--- NOTE | 2016-12-06 20:17 | PROGRESS NOTE ---
DATE: 12/06/2016 PRESENT ILLNESS: The patient's newest x-ray does not show evidence of pneumonia which is what earlier I was treating the patient for. However, his white count has jumped to 47,130. The exact cause of this is uncertain to me. MEDICATIONS: The patient is receiving Levaquin which is the 10th day of treatment with that antibiotic, it's the 7th day of treatment with meropenem, and also the 7th day of treatment with micafungin. PHYSICAL EXAMINATION: Vital Signs: Temperature is 98.7 degrees, pulse 105, respirations 29, blood pressure 117/64. General: The patient seems to be delirious. He sometimes turns his head. He does not answer questions. He does not follow requests to move his extremities. He does not respond to verbal stimuli. Lungs: Clear to auscultation. Cardiovascular: Regular heart rate. Abdomen: Seems distended but it is not tender and it is soft. LAB AND X-RAY: X-ray of the abdomen shows findings consistent with ileus. Chest x-ray shows right middle lobe atelectasis. CBC shows a white count of 47,130, hemoglobin is 12.3 and platelet count is a 170,000. Patient's blood gases show a pH of 7.47, PO2 of 114, pCO2 of 27, creatinine is 1.1. GFR is greater than 60. ASSESSMENT AND PLAN: The patient has a jump in his white count. The exact cause of his leukocytosis is uncertain to me. My plan will be to continue his current antibiotics and also start him on vancomycin. I have also ordered 2 blood cultures. COMORBIDITIES: He has COPD.
[2016-12-06] MEDS: MYCAMINE 100 MG in NS 100 ML IV SCH (20:24)
[2016-12-06] MEDS: PROTONIX IV SCH (20:24)
[2016-12-07] MEDS: CARDIZEM PO SCH ×4 (00:10→21:25)
[2016-12-07] MEDS: HUMULIN R IV SCH ×7 (00:11→23:20)
[2016-12-07] MEDS: D5W 1,000 ML IV SCH ×4 (02:13→22:12)
[2016-12-07] MEDS: LOPRESSOR IV SCH ×3 (04:00→20:33)
[2016-12-07] MEDS: MERREM 1 GM in NS 50 ML IV SCH ×3 (04:41→20:55)
[2016-12-07 05:37] LABS: HEMOGLOBIN 10.8 g/dL (14.0-18.0); MCH 28.1 PG (27-31); MCHC 31.8 g/dL (33-37); MCV 88.3 FL (81-99); PLT 186 X1000 (130-400); RBC 3.85 XMIL (4.7-6.1)
[2016-12-07 05:49] LABS: MAGNESIUM 2.4 mg/dL (1.5-2.7)
[2016-12-07 06:02] LABS: AGAP 13; ALBUMIN 2.1 g/dL (3.5-5.0); ALKALINE PHOSPHATASE 119 U/L (32-122); BUN 53 mg/dL (8-22); CALCIUM 8.9 mg/dL (8.8-10.2); CHLORIDE 102 mmol/L (98-107); COSMO 297; GOT 26 U/L (10-34); GPT 21 U/L (10-44); POTASSIUM 4.9 mmol/L (3.5-5.1); SODIUM 138 mmol/L (136-145); TCO2 23 mmol/L (25-35); TOTAL PROTEIN 5.6 g/dL (6.3-8.3)
[2016-12-07] MEDS: SYNTHROID IV SCH (06:26)
--- NOTE | 2016-12-07 07:38 | Diag Imaging Result Document ---
PROCEDURE NAME: CHEST-PORTABLE - 12/07/2016 PORTABLE CHEST X-RAY, 12/07/20160: COMPARISON: 12/06/2016. FINDINGS: Stable support lines and tubes. Stable cardiomegaly. Stable right hemidiaphragm elevation with some hazy right basilar infiltrate or atelectasis. IMPRESSION: No change from prior.
--- NOTE | 2016-12-07 10:58 | Diag Imaging Result Document ---
PROCEDURE NAME: ABDOMEN FLAT/UPRIGHT - 12/07/2016 PORTABLE SITTING AND SUPINE ABDOMEN, TWO VIEWS: FINDINGS: Although there is motion on several of the films, I believe the nasogastric tube does enter the stomach. There continues to be air distended loops of small bowel. No organomegaly. Mild scoliosis. IMPRESSION: Persistent ileus versus obstruction with no definite improvement.
--- NOTE | 2016-12-07 11:34 | PROGRESS NOTE ---
DATE: 12/07/2016 SUBJECTIVE: Mr. Yost is somewhat drowsy this morning. He is confused. He initially thought he was at home and then the second time, after 2 hours after he was told that he was in ICU, he responded that he is in emergency room. He has difficulty in swallowing some; however, he has a lot of retention in his stomach this morning. There was 550 mL of residual; hence, NG tube feeding has been stopped for the time being. Abdomen is distended. His white count is still 40.87. Blood gases have been satisfactory and electrolytes are normal. BUN 53. Creatinine 1.1. Blood sugar has been around 200. Liver enzymes are normal. ASSESSMENT AND PLAN: We are going to get flat and upright abdomen. His overall prognosis does not appear too good. He does not move the extremities. He has critical care type of neuropathy. Overall, condition is unchanged. Will get flat plate abdomen portable in his bed today.
[2016-12-07] MEDS: SOLU-MEDROL IV SCH ×3 (11:35→22:14)
[2016-12-07] MEDS: VANCOMYCIN 2 GM in NS 500 ML IV SCH (14:01)
[2016-12-07] MEDS: LEVAQUIN 250 MG/D5W 50 ML IV SCH (16:33)
[2016-12-07] MEDS: SODIUM CHLORIDE 0.9% INJ SCH (20:54)
[2016-12-07] MEDS: PROTONIX IV SCH (20:54)
[2016-12-07] MEDS: MYCAMINE 100 MG in NS 100 ML IV SCH (20:55)
[2016-12-07] MEDS: NORCO-7.5 PO PRN (22:14)
[2016-12-08] MEDS: MERREM 1 GM in NS 50 ML IV SCH ×3 (03:28→19:24)
[2016-12-08] MEDS: LOPRESSOR IV SCH ×3 (03:35→19:50)
[2016-12-08] MEDS: HUMULIN R IV SCH ×5 (03:43→19:49)
[2016-12-08] MEDS: CARDIZEM PO SCH ×3 (03:59→20:31)
[2016-12-08 05:32] LABS: AGAP 10; ALKALINE PHOSPHATASE 103 U/L (32-122); BUN 51 mg/dL (8-22); CALCIUM 8.8 mg/dL (8.8-10.2); CHLORIDE 101 mmol/L (98-107); COSMO 285; GOT 26 U/L (10-34); GPT 21 U/L (10-44); HEMOGLOBIN 9.7 g/dL (14.0-18.0); MCH 27.8 PG (27-31); MCHC 31.3 g/dL (33-37); MCV 88.8 FL (81-99); MPV 14.5 FL (7.4-10.4); POTASSIUM 4.6 mmol/L (3.5-5.1); RBC 3.49 XMIL (4.7-6.1); SODIUM 134 mmol/L (136-145); TCO2 23 mmol/L (25-35); TOTAL BILIRUBIN 0.48 mg/dL (0.20-1.00); TOTAL PROTEIN 5.3 g/dL (6.3-8.3)
[2016-12-08] MEDS: SYNTHROID IV SCH (06:33)
[2016-12-08] MEDS: D5W 1,000 ML IV SCH ×2 (07:34→18:16)
--- NOTE | 2016-12-08 07:34 | Diag Imaging Result Document ---
PROCEDURE NAME: CHEST-PORTABLE - 12/08/2016 SINGLE FRONTAL RADIOGRAPHIC OF THE CHEST: COMPARISON: 12/07/2016. FINDINGS: Right PICC line is in stable position. An NG tube projects below the diaphragm and out of the field of view. Hazy opacity at the right lung base suggesting atelectasis and/or infiltrate is stable. There is stable elevation of the right hemidiaphragm. No new consolidations are appreciated. There is stable cardiomegaly. IMPRESSION: Stable chest.
[2016-12-08] MEDS: VANCOMYCIN 2 GM in NS 500 ML IV SCH (07:42)
--- NOTE | 2016-12-08 07:45 | Diag Imaging Result Document ---
PROCEDURE NAME: ABDOMEN FLAT/UPRIGHT - 12/08/2016 FLAT AND UPRIGHT RADIOGRAPHS OF THE ABDOMEN: COMPARISON: 12/07/2016. FINDINGS: Gaseous distention of small bowel is approximately stable as compared to the previous study. An NG tube is in place. The abdomen is essentially stable as compared to the previous study, otherwise. IMPRESSION: Stable gaseous distention of small bowel.
[2016-12-08] MEDS: REGLAN IV SCH ×2 (09:14→16:46)
[2016-12-08] MEDS: MYLICON PO PRN ×3 (09:56→16:24)
--- NOTE | 2016-12-08 11:03 | PROGRESS NOTE ---
DATE: 12/08/2016 Mr. Yost is much more alert, is talking. He makes more sense today, moves extremities to some extent. His abdomen is still distended. He has a lot of gas. Flat plate of abdomen looks much better today. We will cancel the surgical consult and put him on IV Reglan as well as simethicone liquid by mouth p.r.n. Overall condition appears to be better. His CBC shows white count improvement.
--- NOTE | 2016-12-08 11:13 | PROGRESS NOTE ---
DATE: 12/08/2016 The patient is in ICU-bed 11. Mr. Yost continues improved. Today, he is alert, much more consistently attentive and appropriate, following simple commands, carrying on limited conversation. I do not see any new neurologic deficit. He is definitely moving his limbs voluntarily with more power than 1 week ago. 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 No new suggestion from a neurologic standpoint.
[2016-12-08] MEDS: LEVAQUIN 250 MG/D5W 50 ML IV SCH (15:46)
--- NOTE | 2016-12-08 17:27 | ECHO REPORT ---
ORDER DATE: 12/07/2016 INDICATION FOR THE STUDY: Evaluation for endocarditis. This is a limited study done to evaluate the valves for endocarditis. FINDINGS: 1. The left ventricle does appear to be dilated with a dimension of 6.9 cm at end diastole. 2. No pericardial effusion seen. 3. No mitral prolapse. Trace mitral regurgitation identified on limited Doppler evaluation. 4. The aortic valve opens well. It does appear trileaflet. No significant aortic insufficiency or stenosis seen on limited Doppler evaluation. 5. No pericardial effusion seen. 6. Evaluation of the valvular structures does not seem to demonstrate any clear evidence to suggest endocarditis.
[2016-12-08] MEDS: TYLENOL NG PRN (19:24)
[2016-12-08] MEDS: MYCAMINE 100 MG in NS 100 ML IV SCH (19:24)
[2016-12-08] MEDS: PROTONIX IV SCH (19:24)
[2016-12-08] MEDS: SODIUM CHLORIDE 0.9% INJ SCH (19:24)
--- NOTE | 2016-12-08 19:34 | PROGRESS NOTE ---
DATE: 12/08/2016 PRESENT ILLNESS: Today's x-ray has a stable right lower lobe infiltrate versus atelectasis. The patient also continues to have leukocytosis, but it is getting better. Finally, he is complaining of having low back pain which he attributes to the fact that he is lying in bed for a while. MEDICATIONS: He is receiving Levaquin for the 12th day, meropenem for the 9th day, micafungin for the 9th day, and vancomycin for the 8th day. PHYSICAL EXAMINATION: Vital Signs: Temperature is 98 degrees, pulse 99, respirations 24, blood pressure 106/57. General: This is a somewhat middle-aged male who is in no acute distress. Lungs: Clear to auscultation. Cardiovascular: Regular heart rate. Back: The patient would not turn on his side and I could not get him to turn, but I palpated his back and it did not increase the pain that he has been having there. It seems like the pain is in the lower thoracic and upper lumbar area of the spine. LABORATORY AND X-RAY: Chest x-ray shows a stable right lower lobe infiltrate. The CBC shows a white count of 29,650, hemoglobin 9.7, and platelet count 183,000. Creatinine 0.9. GFR is greater than 60. Blood cultures are sterile. ASSESSMENT AND PLAN: 1. The patient has a possible pulmonary infiltrate and leukocytosis as well as back pain. My plan would be to continue his current antibiotics as his white count is dropping and I plan to obtain a bedside x-ray of the lower thoracic and lumbar spine. 2. Comorbidities: He has severe chronic obstructive pulmonary disease.
[2016-12-08] MEDS: SOLU-MEDROL IV SCH (20:31)
[2016-12-08] MEDS: HALDOL IV PRN (21:10)
[2016-12-08] MEDS: NORCO-7.5 PO PRN (21:27)
[2016-12-09] MEDS: REGLAN IV SCH ×3 (00:13→16:19)
[2016-12-09] MEDS: HUMULIN R IV SCH ×6 (00:15→19:18)
[2016-12-09] MEDS: VANCOMYCIN 2 GM in NS 500 ML IV SCH (03:02)
[2016-12-09] MEDS: LOPRESSOR IV SCH ×3 (03:08→19:18)
[2016-12-09] MEDS: D5W 1,000 ML IV SCH ×2 (03:20→17:55)
[2016-12-09] MEDS: MERREM 1 GM in NS 50 ML IV SCH ×3 (03:20→21:22)
[2016-12-09] MEDS: HALDOL IV PRN ×2 (03:21→19:04)
[2016-12-09] MEDS: CARDIZEM PO SCH ×3 (04:39→21:22)
[2016-12-09] MEDS: NORCO-7.5 PO PRN ×3 (05:09→17:54)
[2016-12-09 05:24] LABS: HEMATOCRIT 31.2 % (42.0-52.0); HEMOGLOBIN 9.9 g/dL (14.0-18.0); MCH 27.7 PG (27-31); MCHC 31.7 g/dL (33-37); MCV 87.2 FL (81-99); MPV 14.1 FL (7.4-10.4); RBC 3.58 XMIL (4.7-6.1)
[2016-12-09 05:29] LABS: AGAP 12; ALBUMIN 2.1 g/dL (3.5-5.0); ALKALINE PHOSPHATASE 127 U/L (32-122); BUN 50 mg/dL (8-22); CALCIUM 8.5 mg/dL (8.8-10.2); CHLORIDE 97 mmol/L (98-107); COSMO 281; GOT 27 U/L (10-34); GPT 22 U/L (10-44); POTASSIUM 5.1 mmol/L (3.5-5.1); SODIUM 130 mmol/L (136-145); TCO2 21 mmol/L (25-35); TOTAL BILIRUBIN 0.43 mg/dL (0.20-1.00); TOTAL PROTEIN 5.4 g/dL (6.3-8.3)
[2016-12-09] MEDS: SYNTHROID IV SCH (06:16)
--- NOTE | 2016-12-09 06:21 | Diag Imaging Result Document ---
PROCEDURE NAME: CHEST-PORTABLE - 12/09/2016 PORTABLE CHEST: COMPARISON: Compared to 12/08/2016. FINDINGS: No change in the right-sided PICC line or in the nasogastric tube. Sternal wires are present. The heart remains enlarged. The right hemidiaphragm is elevated. Minimal basilar atelectasis versus tiny infiltrates. No pleural effusions identified. IMPRESSION: Stable chest.
--- NOTE | 2016-12-09 09:03 | PROGRESS NOTE ---
DATE: 12/09/2016 SUBJECTIVE: Mr. Yost is awake, alert, attentive. He is not significantly dysarthric. I observed him chewing and swallowing without difficulty. He is propped up in the bed feeding himself. He is able to use all limbs. He continues to have diffuse weakness, but that is steadily improving. No suggestions from neurologic standpoint today.
--- NOTE | 2016-12-09 09:15 | PROGRESS NOTE ---
DATE: 12/09/2016 Mr. Yost's vital signs are stable. He is alert. He moves all the extremities now. His swallowing evaluation, he gets agitated at times because he cannot do what he wants to do. His laboratory data revealed leukocytosis. White count has come down to 29.36. Hemoglobin 9.9. Chemistries reveals normal electrolytes. BUN is 50. Creatinine 1.0. Blood sugar is around 200. His lipid profile has been normal. Alkaline phosphatase 127. Chest x-ray reveals not much change on him. The last chest x-ray revealed the PICC line in place. Heart was enlarged and really no new pleural effusions were identified. He was getting IV antibiotics. He is being by Dr. Gruber. We will transfer him out of the ICU today. His abdomen is distended. We will try to put a rectal tube. -3
--- NOTE | 2016-12-09 10:04 | Diag Imaging Result Document ---
PROCEDURE NAME: THORACO-LUMBAR SPINE - 12/09/2016 THORACIC AND LUMBAR SPINE, TWO VIEWS: FINDINGS: There is slight curvature to the spine and there are several tiny bone spurs arising from the L2 vertebra. No subluxation. No other abnormality. IMPRESSION: Minimal curvature to the spine with tiny degenerative bone spurs.
[2016-12-09] MEDS: MYLICON PO PRN ×2 (11:10→17:54)
[2016-12-09] MEDS: LEVAQUIN 250 MG/D5W 50 ML IV SCH (15:06)
[2016-12-09] MEDS ORDERED: D5 NS 1,000 ML IV SCH (18:45)
[2016-12-09] MEDS ORDERED: XANAX PO ONE (21:07)
[2016-12-09] MEDS: SODIUM CHLORIDE 0.9% INJ SCH (21:22)
[2016-12-09] MEDS: MYCAMINE 100 MG in NS 100 ML IV SCH (21:22)
[2016-12-09] MEDS: SOLU-MEDROL IV SCH (21:22)
[2016-12-09] MEDS: PROTONIX IV SCH (21:22)
[2016-12-10] MEDS: REGLAN IV SCH ×3 (00:38→17:07)
[2016-12-10] MEDS: HUMULIN R IV SCH ×5 (00:41→16:14)
[2016-12-10] MEDS: LOPRESSOR IV SCH ×3 (05:11→20:38)
[2016-12-10] MEDS: CARDIZEM PO SCH ×3 (05:57→20:33)
[2016-12-10] MEDS: MERREM 1 GM in NS 50 ML IV SCH ×3 (05:57→20:29)
[2016-12-10] MEDS: SYNTHROID IV SCH (06:05)
--- NOTE | 2016-12-10 12:01 | PROGRESS NOTE ---
DATE: 12/10/2016 SUBJECTIVE: Mr. Yost is awake and alert. He demonstrated voluntary movement to command in all limbs. He was not able to raise his leg at the hip from the bed, but was able to raise his foot when I supported his knee on the left and on the right. There has not been any deterioration in his weakness. He continues slowly improving. No suggestion from a neurologic standpoint.
--- NOTE | 2016-12-10 13:08 | PROGRESS NOTE ---
DATE: 12/10/2016 Mr. Yost continues to have some abdominal distention. He is recovering from pneumonia. He had some evidence of critical care neuropathy. He is improving there. He is alert. Abdomen is still distended. It is soft, nontender. We will repeat the flat plate again in the morning and repeat the CBC as well as a chem 7. He is has done quite well. Oral intake is slightly better but not adequate. We will start him on some Clinimix in the meantime.
[2016-12-10] MEDS: CLINIMIX E 4.25%-5% SOLUTION 1,000 ML IV SCH (15:28)
[2016-12-10] MEDS ORDERED: VANCOMYCIN 1.6 GM in NS 250 ML IV SCH (16:00)
--- NOTE | 2016-12-10 16:15 | PROGRESS NOTE ---
DATE: 12/10/2016 PRESENT ILLNESS: The patient has been treated for a pneumonia. Also he has an intense leukocytosis which is improving. Today his abdomen has become quite distended. MEDICATIONS: He has been on Levaquin for 13 days, meropenem and micafungin for 10 days, and vancomycin for 9 days. PHYSICAL EXAMINATION: Vital Signs: Temperature is 97.9 degrees, pulse 93, respirations 16, blood pressure 114/62. General: This is an ill-appearing, middle-aged male who is in no acute distress. Lungs: Clear to auscultation. Cardiovascular: Heart rate is regular. Abdomen: Much more swollen today. It is distended. It is not tender. Minimal bowel sounds were heard. LAB AND X-RAY STUDIES: An x-ray of the thoracic lumbar spine showed minimal curvature and degenerative joint disease changes. CBC shows that the white count has come down to 29,360, hemoglobin 9.9, and platelet count 236,000. Creatinine is 1.0. GFR is greater than 60. The liver function studies are normal, except for an alkaline phosphatase of 127. ASSESSMENT AND PLAN: The patient is being treated for pneumonia. I plan to continue his current antibiotics, except for Levaquin for which the patient has been on for an adequate course of therapy. The findings on the spinal film I do not think warrant much in the way of treatment. It looks like the biggest problem right now is the patient's abdominal distention. The plan here is to get a KUB, and we have consulted Dr. Sidney Pizano of surgery to see the patient. As far as the patient's infiltrates are going, we plan to continue his antibiotics. COMORBIDITY: The patient's comorbidity is that he has severe chronic obstructive pulmonary disease.
[2016-12-10] MEDS: NORCO-7.5 PO PRN ×2 (17:13→23:19)
[2016-12-10] MEDS: SODIUM CHLORIDE 0.9% INJ SCH (20:33)
[2016-12-10] MEDS: PROTONIX IV SCH (20:33)
[2016-12-10] MEDS: HUMULIN R SUBQ SCH (20:38)
[2016-12-10] MEDS: HALDOL IV PRN (20:42)
[2016-12-10] MEDS: MYCAMINE 100 MG in NS 100 ML IV SCH (20:43)
[2016-12-10] MEDS: MYLICON PO PRN (23:22)
[2016-12-11] MEDS: REGLAN IV SCH ×3 (00:40→16:57)
[2016-12-11] MEDS: TYLENOL NG PRN (02:01)
[2016-12-11] MEDS: HUMULIN R SUBQ SCH ×6 (02:14→21:35)
--- NOTE | 2016-12-11 03:47 | Diag Imaging Result Document ---
PROCEDURE NAME: ABDOMEN FLAT/UPRIGHT - 12/10/2016 FLAT AND UPRIGHT RADIOGRAPH OF THE ABDOMEN 2 VIEWS: COMPARISON: 12/08/2016. FINDINGS: There are still gas distended loops of small bowel throughout the abdomen. However, there may be marginal improvement as compared to the previous study. No large-volume free abdominal gas can be identified. The abdomen is stable otherwise. IMPRESSION: Perhaps marginal improvement of gaseous distention of small bowel.
[2016-12-11] MEDS: MERREM 1 GM in NS 50 ML IV SCH ×3 (04:58→21:36)
[2016-12-11] MEDS ORDERED: SODIUM CHLORIDE 0.9% 10 ML ONE (05:50)
[2016-12-11] MEDS: LOPRESSOR IV SCH ×2 (06:01→12:00)
[2016-12-11] MEDS: CARDIZEM PO SCH ×3 (06:02→21:35)
[2016-12-11] MEDS: CLINIMIX E 4.25%-5% SOLUTION 1,000 ML IV SCH ×2 (06:03→12:11)
[2016-12-11] MEDS: SYNTHROID IV SCH (06:03)
[2016-12-11 06:59] LABS: BASO% 0.2 % (0.0-0.8); EOS# 0.06 X1000 (0.0-0.7); EOS% 0.2 % (0.0-10.0); HEMATOCRIT 28.6 % (42.0-52.0); HEMOGLOBIN 9.3 g/dL (14.0-18.0); IMM GRAN# 0.62 X1000 (0.0-0.04); IMM GRAN% 2.4 % (0.0-0.5); LYMPH# 0.95 X1000 (1.2-3.4); LYMPH% 3.7 % (20.5-51.1); MANUAL DIFF NEEDED? YES; MCH 27.4 PG (27-31); MCHC 32.5 g/dL (33-37); MCV 84.1 FL (81-99); MONO# 1.41 X1000 (0.11-0.59); MONO% 5.4 % (1.7-9.3); NEUT% 88.1 % (42.2-75.2); PLT 364 X1000 (130-400)
[2016-12-11 07:04] LABS: ALBUMIN 1.8 g/dL (3.5-5.0); CALCIUM 8.1 mg/dL (8.8-10.2); DIRECT BILIRUBIN 0.2 mg/dL (0.00-0.20); POTASSIUM 4.9 mmol/L (3.5-5.1); TOTAL BILIRUBIN 0.51 mg/dL (0.20-1.00); TOTAL PROTEIN 5.1 g/dL (6.3-8.3)
[2016-12-11 08:03] LABS: BANDS 10 % (0-1); LYMPHS 6 % (21-51); MONO 8 % (1-9)
--- NOTE | 2016-12-11 11:02 | PROGRESS NOTE ---
DATE: 12/11/2016 SUBJECTIVE: The patient says he feels weak. He has had critical care neuropathy. He has also had several other issues. His abdomen is still very distended, and he has pneumonia. OBJECTIVE: Vital signs show blood pressure 92/50, pulse 102, temperature 98.6 degrees Fahrenheit. HEENT: Normocephalic. EOMs intact. PERRLA. Throat clear. Lungs: Clear to auscultation and percussion without rhonchi, rales, or wheezes. Heart: Regular rate and rhythm without murmurs, gallops, or friction rubs. Abdomen: Very distended. Not particularly tender. Neurologic: Intact except for weakness in the lower extremities. DIAGNOSTIC DATA: White count is down to 25,910, hemoglobin 9.3, hematocrit 28.6, platelet count is 364,000. Sodium is 126, chloride 92, BUN is 67, creatinine 1.3. Chest x-ray last showed some tiny infiltrates in the basilar area. ASSESSMENT: 1. Resolving pneumonia. 2. Chronic obstructive pulmonary disease. 3. Critical care neuropathy. 4. Abdominal distention with small bowel obstruction versus ileus. Might consider a CT scan of the abdomen. Creatinine has come up to 1.3, as far as IV contrast goes, but that still may be alright for getting a CT scan. Consultation has been made with Dr. Pizano, surgeon. I will leave it up to him about whether he thinks he needs a CT scan or not. The patient is continued on IV antibiotics. PLAN: Continue care as above.
[2016-12-11] MEDS: NORCO-7.5 PO PRN (11:59)
[2016-12-11] MEDS: HALDOL IV PRN (12:07)
--- NOTE | 2016-12-11 17:09 | CONSULTATION ---
DATE OF CONSULTATION: 12/11/2016 CHIEF COMPLAINT: Abdominal distention. HISTORY: This is a 61-year-old white male admitted on 11/14/2016 with pneumonia as manifested by severe shortness of breath and cough. Since then his course has been prolonged with abdominal distention and poor bowel function. He has additional medical problems including coronary artery disease, congestive heart failure and atrial fibrillation. His last colonoscopy was a couple of years ago by Dr. Montes and apparently was unremarkable. He denies any significant abdominal pain, it is mildly tender upon palpation. Taking liquids and denies nausea associated with that. MEDICATIONS: Listed. ALLERGY: Lisinopril, lorazepam, morphine, aspirin, Atorvastatin, etc. SOCIAL HISTORY: He is denies being a smoker or using any alcohol. He is disabled. FAMILY HISTORY: Pertinent for hypertension, coronary disease. REVIEW OF SYSTEMS: As noted above. EXAM: Afebrile. Heart rate 92, respiratory rate 22, blood pressure 89/56. He appears somewhat tachypneic.Abdomen: Distended, tympanitic. No peritoneal signs are noted. Only mildly tender. No hernia palpated. Bowel sounds are hypoactive. He does have pitting edema of his legs. He is awake and alert. DIAGNOSTICS/[place]: [place] [address], hemoglobin 9.3. BUN is 67. Creatinine 1.3. ASSESSMENT: His picture is one of an ileus based on his appearance of his x-rays. He has not had a CAT scan since 11/23/2016 so it might be beneficial to repeat that and compare it to that one. We will use some p.o. contrast if he can tolerate.
[2016-12-11] MEDS: ALBUTEROL NEB INH PRN ×2 (19:44→22:35)
[2016-12-11] MEDS: MYCAMINE 100 MG in NS 100 ML IV SCH (21:35)
[2016-12-11] MEDS: PROTONIX IV SCH (21:35)
[2016-12-11] MEDS: SODIUM CHLORIDE 0.9% INJ SCH (21:35)
--- NOTE | 2016-12-11 22:43 | Diag Imaging Result Document ---
PROCEDURE NAME: CT ABD/PELVIS ORAL CONTR ONLY - 12/11/2016 CT ABDOMEN AND PELVIS WITH ORAL CONTRAST ONLY: COMPARISON: 11/23/2016. FINDINGS: There are prominent infiltrates at the lung bases similar to the previous study. There appears to be trace pleural fluid at the left lung base that has decreased during the interval. The small right pleural effusion seen on the previous study has essentially resolved. There has been interval development of a fluid collection in the right perirenal space that is nonspecific. It has the appearance of being partially loculated. However, the density is that of simple fluid. Fluid abuts the right kidney. However, the kidney itself appears to be stable. There is stable nonobstructing nephrolithiasis on the left. There are multiple significantly distended loops of small bowel with air-fluid levels. The stomach is also distended and there is reflux of contrast into the esophagus. The terminal ileum is decompressed. However, a majority of the colon is distended as well. Consider functional ileus versus high-grade obstruction. There is a large amount of stool in the colon and rectum indicating a fecal impaction. The diameter of the impacted rectum is up to 8.4 cm. There is extensive edema at the root of the mesentery that has developed during the interval. Part of this mesenteric edema abuts the head of the pancreas. Correlate with labs to exclude a component of pancreatitis. There is no evidence of free abdominal gas. The remainder of the solid viscera of the abdomen and pelvis and the remainder of the GI tract is essentially stable. There is a Franks catheter in the urinary bladder and the bladder is nondistended. There is soft tissue anasarca around the pelvis. IMPRESSION: 1. Multiple markedly distended loops of small bowel. The terminal ileum is decompressed. Consider high-grade bowel obstruction versus functional ileus. 2. Gaseous distention of a majority of the colon, most prominent at the transverse colon with a rectal fecal impaction as described. 3. Extensive mesenteric edema at the root of the mesentery that has developed during the interval. 4. Edema that is contiguous with the mesenteric edema around the head of the pancreas. Correlate with labs to exclude a component of pancreatitis. 5. Development of a prominent fluid collection in the right perirenal space as described above. 6. Bibasilar pulmonary infiltrates similar to the previous study. However, the small pleural effusions have decreased further in size during the interval. 7. Other incidental/nonacute findings detailed above.
[2016-12-12] MEDS: HUMULIN R SUBQ SCH ×8 (00:17→23:24)
[2016-12-12] MEDS: REGLAN IV SCH ×2 (00:29→09:51)
[2016-12-12] MEDS: CLINIMIX E 4.25%-5% SOLUTION 1,000 ML IV SCH ×2 (02:31→15:56)
[2016-12-12] MEDS: CARDIZEM PO SCH (04:16)
[2016-12-12] MEDS: MERREM 1 GM in NS 50 ML IV SCH ×3 (04:17→19:51)
[2016-12-12] MEDS: SYNTHROID IV SCH (06:16)
[2016-12-12] MEDS: HALDOL IV PRN (09:52)
--- NOTE | 2016-12-12 10:07 | Diag Imaging Result Document ---
PROCEDURE NAME: CHEST-PORTABLE - 12/12/2016 SINGLE FRONTAL RADIOGRAPH OF THE CHEST: COMPARISON: 12/11/2016. FINDINGS: Right PICC line is stable. Lung volumes are very low but stable. Bibasilar infiltrates are unchanged. There is stable cardiomegaly. No new consolidation is appreciated. IMPRESSION: Stable chest.
[2016-12-12] MEDS: ALBUTEROL NEB INH PRN ×2 (10:16→21:41)
--- NOTE | 2016-12-12 11:46 | PROGRESS NOTE ---
DATE: 12/12/2016 SUBJECTIVE: The patient has an NG tube down. He has a little bit sedated as he has been given some Haldol for his nerves. He is not very responsive at this time. He has his eyes open. I asked him if he was hurting anywhere, and he shook his head no. He is just not nearly as alert as he was yesterday when I saw him. OBJECTIVE: Blood pressure is low at 87/59, respirations 22, pulse 101, temperature 98.7 degrees Fahrenheit. He is in a normal sinus rhythm to sinus tachycardia. No longer in atrial fibrillation. He cannot get his diltiazem orally now and, with his hypotension we are going to hold the diltiazem. We will have to watch and see if he becomes tachycardic. If he does, we may have to use a different medication to help that or give him something IV. Since he has had constipation issues, the diltiazem also can cause severe constipation at times. This is not his only problem but it could be a contributor. HEENT: Normocephalic. Lungs are fairly clear to auscultation but chest x-ray still shows bibasilar infiltrates. Heart: Tachycardic without murmurs, gallops, or friction rubs. Abdomen is distended with some active bowel sounds. It looks like he has an impaction. Surgery is seeing him as well. Neurologic: He does have some small tremors in his hands that apparently had been there previously. I had not noticed them yesterday, but he has been given some Haldol today. Whether that brought it out or I just had not noticed as well yesterday. He has not complained of any of this. ASSESSMENT: 1. Bilateral basilar pneumonia. 2. Abdominal distention with impaction. 3. History of pancreatitis. 4. History of atrial fibrillation. 5. Hypotension. PLAN: Continue care.
[2016-12-12] MEDS: LEVOPHED 8 MG in D5 1/2 NS 250 ML IV SCH (16:00)
[2016-12-12] MEDS: DULCOLAX PR PRN (16:12)
[2016-12-12] MEDS: NS 1,000 ML IV SCH ×2 (16:54→19:47)
--- NOTE | 2016-12-12 16:54 | Diag Imaging Result Document ---
PROCEDURE NAME: CHEST/ABD TUBE PLACEMENT - 12/12/2016 SINGLE FRONTAL RADIOGRAPH OF THE LOWER CHEST AND UPPER ABDOMEN: COMPARISON: Chest radiograph dated 12/12/2016. FINDINGS: There is a newly placed NG tube. The tip projects below the diaphragm and is assumed to be in the lumen of the stomach in the expected position. Limited views of the lung bases appear to be approximately stable. There is gaseous distention of bowel similar to previous studies. IMPRESSION: Interval placement of NG tube in the expected position as described.
[2016-12-12 18:33] LABS: ALLEN TEST YES; BE -4.6 mmoll (-3.0-3.0); BLOOD TYPE ARTERIAL; DRAW SITE R RADIAL; METHB 1.8 % (0.0-1.5); O2(CT) 9.4 mL/dL (15.0-23.0); PCO2(98.6) 27 mmHg (35-45); PO2(98.6) 68 mmHg (60-100); SAMPLE BLOOD; SAO2 97.1 % (95.0-100.0); THB 7.1 g/dL (11.5-17.4); pH(98.6) 7.45 (7.35-7.45)
[2016-12-12 18:35] LABS: MODALITY CANNULA
[2016-12-12] MEDS: SODIUM CHLORIDE 0.9% INJ SCH (19:47)
[2016-12-12] MEDS: PROTONIX IV SCH (19:47)
[2016-12-12] MEDS: MYCAMINE 100 MG in NS 100 ML IV SCH (19:56)
[2016-12-13] MEDS ORDERED: NS 500 ML IV ONE (00:30)
[2016-12-13] MEDS: NS 1,000 ML IV SCH (00:41)
[2016-12-13] MEDS: MERREM 1 GM in NS 50 ML IV SCH ×3 (03:31→19:52)
[2016-12-13] MEDS: DULCOLAX PR PRN (03:31)
[2016-12-13] MEDS: HUMULIN R SUBQ SCH ×5 (03:31→19:52)
[2016-12-13] MEDS: ALBUTEROL NEB INH PRN ×5 (03:45→22:50)
[2016-12-13 05:28] LABS: BASO% 0.2 % (0.0-0.8); EOS# 0.19 X1000 (0.0-0.7); EOS% 1.2 % (0.0-10.0); HEMATOCRIT 22.5 % (42.0-52.0); HEMOGLOBIN 7.3 g/dL (14.0-18.0); IMM GRAN% 4.4 % (0.0-0.5); LYMPH# 0.45 X1000 (1.2-3.4); LYMPH% 2.8 % (20.5-51.1); MANUAL DIFF NEEDED? YES; MCH 27.2 PG (27-31); MCHC 32.4 g/dL (33-37); MONO# 0.47 X1000 (0.11-0.59); MONO% 2.9 % (1.7-9.3); MPV 12.1 FL (7.4-10.4); NEUT% 88.5 % (42.2-75.2); PLT 296 X1000 (130-400); RBC 2.68 XMIL (4.7-6.1)
[2016-12-13 05:36] LABS: CALCIUM 7.5 mg/dL (8.8-10.2); MAGNESIUM 2.3 mg/dL (1.5-2.7)
[2016-12-13 06:00] LABS: BANDS 6 % (0-1); EOS 2 % (1-10); HYPOCHROM OCCASIONAL; LYMPHS 4 % (21-51); MONO 2 % (1-9)
[2016-12-13] MEDS: SYNTHROID IV SCH (06:10)
[2016-12-13] MEDS ORDERED: FLEET ENEMA PR ONE (08:45)
--- NOTE | 2016-12-13 09:34 | PROGRESS NOTE ---
DATE: 12/13/2016 PATIENT LOCATION: ICU 16. SUBJECTIVE: Mr. Yost is not doing good. He is still hypotensive. Blood pressure is maintained at 102/54 with Levophed which had to be increased this morning. OBJECTIVE: Vital signs: Heart rate is around 115, O2 saturation is 98%. General: He is still very drowsy. Abdomen: Distended. It is soft, nontender. ASSESSMENT AND PLAN: He is seen by Dr. Pizano who suggested to give him enemas and this morning will see the results. He is on . He is on IV Levophed. Overall prognosis is poor. He more drowsy and as far as his neuromuscular situation, it is kind of hard to figure out at the present time. We will continue with the current management. CT scan of the abdomen and pelvis revealed multiple markedly distended loops of the small bowel suggestive of possible high-grade small bowel obstruction versus functional ileus. We will continue with the current management at the present time.
--- NOTE | 2016-12-13 10:29 | Diag Imaging Result Document ---
PROCEDURE NAME: FLAT/UPRIGHT ABD/1 VIEW CHEST - 12/11/2016 PLAIN RADIOGRAPH OF THE CHEST AND ABDOMEN, THREE VIEWS: COMPARISON: Abdominal radiograph dated 12/10/2016 and chest radiograph dated . FINDINGS: There are persistent gas-distended loops of small bowel. This is approximately stable when compared to the previous study. No large volume free abdominal gas is identified. The abdomen is stable, otherwise. A right PICC line is stable. The NG tube appears to have been removed. Mild atelectasis and/or infiltrate at the right lung base is unchanged. No new consolidation is identified. There is stable cardiomegaly. IMPRESSION: 1. Stable nonspecific gas-distended loops of small bowel. 2. Apparent interval removal of the NG tube. 3. Grossly stable chest, otherwise. [facility]
[2016-12-13] MEDS ORDERED: VANCOMYCIN 1.6 GM in NS 250 ML IV SCH (11:00)
[2016-12-13] MEDS: CLINIMIX E 4.25%-5% SOLUTION 1,000 ML IV SCH (11:35)
--- NOTE | 2016-12-13 15:21 | Diag Imaging Result Document ---
PROCEDURE NAME: CHEST-1 VIEW - 12/13/2016 SINGLE FRONTAL RADIOGRAPH OF THE CHEST: COMPARISON: 12/12/2016. FINDINGS: Right PICC line appears to be stable. An NG tube projects below the diaphragm and is assumed to be in the stomach. Lung volumes remain low. Bibasilar mild atelectasis and/or infiltrate is essentially stable. No new consolidation is identified. There is stable cardiomegaly. IMPRESSION: Essentially stable chest.
--- NOTE | 2016-12-13 15:25 | Diag Imaging Result Document ---
PROCEDURE NAME: ABDOMEN FLAT/UPRIGHT - 12/13/2016 FLAT AND UPRIGHT RADIOGRAPH THE ABDOMEN: COMPARISON: 12/12/2016. FINDINGS: The NG tube remains in place. There are still multiple gas-distended loops of bowel that are very similar to the previous study. The abdomen is essentially stable, otherwise. IMPRESSION: Stable gas-distended loops of bowel as described.
--- NOTE | 2016-12-13 16:53 | PROGRESS NOTE ---
DATE: 12/13/2016 Mr. Yost had some changes over the weekend and is back in the ICU. From neuromuscular standpoint, he seems stable. His limb power seems about the same now as when I last examined him 3 days ago. He is awake and alert and following commands consistently today. No new suggestion from neurologic standpoint. Thanks for allowing me to follow Mr. Yost .
[2016-12-13] MEDS: PROTONIX IV SCH (19:53)
[2016-12-13] MEDS: OFIRMEV 1000 MG/ISOTONIC SOLN 100 ML IV PRN (19:53)
[2016-12-13] MEDS: SODIUM CHLORIDE 0.9% INJ SCH (19:53)
--- NOTE | 2016-12-13 22:15 | PROGRESS NOTE ---
DATE: 12/13/2016 PRESENT ILLNESS: The patient is being treated for a pneumonia. Also he developed marked distention of his abdomen which was thought to be either a very severe ileus or bowel obstruction. MEDICATIONS: This is day 14 for meropenem and micafungin and day 7 for vancomycin. PHYSICAL EXAMINATION: Vital Signs: Temperature is 99.2 degrees, pulse 110, respirations 19, blood pressure 108/60. General: This is an ill-appearing middle-aged male who is in no acute distress. Lungs: Clear to auscultation. Cardiovascular: Regular heart rate. Abdomen: Much less distended than it was a few days ago. It is soft. I did hear some bowel sounds. Neurologic: Patient appears to be sleeping. He did not respond to verbal stimuli. Lungs: Lungs were clear to auscultation. Cardiovascular: Regular heart rate. LABORATORY AND X-RAY: Chest x-ray shows bibasilar atelectasis. CBC today shows that the white count continues to decrease. It is of 15,950, hemoglobin 7.3 and platelet count 296,000. Blood gases show a pH of 7.45, a PO2 of 68, and a pCO2 of 27, creatinine is 1.3, and GFR is 51. Blood cultures are sterile. CT scan showed distended bowel. ASSESSMENT AND PLAN: The patient's leukocytosis is improving. I think his pneumonia has improved and may even be gone. I do not think that there is any evidence of a generalized fungal infection. At this time, I would like to start continuing to some antibiotics. Three days ago we stopped Levaquin. For now I am going to discontinue vancomycin and micafungin. COMORBIDITIES: COPD, ileus. [facility]
[2016-12-14] MEDS: HUMULIN R SUBQ SCH ×7 (00:07→23:12)
[2016-12-14] MEDS: DULCOLAX PR PRN (02:00)
--- NOTE | 2016-12-14 02:48 | PROGRESS NOTE ---
DATE: 12/13/2016 ADDENDUM I forgot to mention the patient's comorbidities. The main one is the patient has severe COPD.
[2016-12-14] MEDS: MERREM 1 GM in NS 50 ML IV SCH ×3 (03:10→19:37)
[2016-12-14] MEDS: LEVOPHED 8 MG in D5 1/2 NS 250 ML IV SCH ×2 (03:11→22:22)
[2016-12-14] MEDS: SYNTHROID IV SCH (06:14)
[2016-12-14] MEDS: CLINIMIX E 4.25%-5% SOLUTION 1,000 ML IV SCH (06:15)
[2016-12-14] MEDS: OFIRMEV 1000 MG/ISOTONIC SOLN 100 ML IV PRN ×2 (07:25→21:48)
[2016-12-14] MEDS: ALBUTEROL NEB INH PRN ×3 (08:42→19:13)
[2016-12-14 10:03] LABS: BASO% 0.2 % (0.0-0.8); EOS# 0.21 X1000 (0.0-0.7); EOS% 1.1 % (0.0-10.0); HEMATOCRIT 22.3 % (42.0-52.0); HEMOGLOBIN 6.9 g/dL (14.0-18.0); IMM GRAN# 0.83 X1000 (0.0-0.04); IMM GRAN% 4.2 % (0.0-0.5); LYMPH# 0.67 X1000 (1.2-3.4); LYMPH% 3.4 % (20.5-51.1); MANUAL DIFF NEEDED? NO; MCH 26.5 PG (27-31); MCHC 30.9 g/dL (33-37); MCV 85.8 FL (81-99); MONO# 0.65 X1000 (0.11-0.59); MONO% 3.3 % (1.7-9.3); MPV 11.6 FL (7.4-10.4); NEUT% 87.8 % (42.2-75.2); PLT 387 X1000 (130-400)
--- NOTE | 2016-12-14 10:10 | PROGRESS NOTE ---
DATE: 12/14/2016 Mr. Yost is doing poorly. He was given pain medication earlier. He is very drowsy. He has some irregular respirations with His abdomen is still distended. He had a normal bowel movement last time. His general condition is unchanged. Chest x-ray continues to show the pneumonia. His antibiotics mainly micafungin, and vancomycin have been discontinued. Overall prognosis is poor. We will try to call his daughter today about possible code status on him. We will repeat a CBC as well as a BMP today on him.
[2016-12-14 10:38] LABS: AGAP 14; BUN 65 mg/dL (8-22); CALCIUM 7.6 mg/dL (8.8-10.2); CHLORIDE 101 mmol/L (98-107); COSMO 293; POTASSIUM 2.9 mmol/L (3.5-5.1); SODIUM 136 mmol/L (136-145); TCO2 21 mmol/L (25-35)
[2016-12-14] MEDS ORDERED: NS 500 ML IV ONE (10:47)
--- NOTE | 2016-12-14 10:47 | Diag Imaging Result Document ---
PROCEDURE NAME: KUB ABDOMEN - 12/14/2016 SINGLE SUPINE RADIOGRAPH OF THE ABDOMEN AND PELVIS: COMPARISON: 12/13/2016. FINDINGS: There is persistent gaseous distention of small bowel and colon. This is essentially stable as compared to the previous study. The abdomen is unchanged, otherwise. IMPRESSION: Stable gaseous distention of bowel.
[2016-12-14] MEDS ORDERED: D5 NS IV SCH (11:00)
[2016-12-14] MEDS ORDERED: POTASSIUM CHLORIDE IV SCH (11:00)
[2016-12-14] MEDS: HALDOL IV PRN ×2 (13:42→19:05)
[2016-12-14] MEDS: LASIX IV SCH ×2 (18:16→22:34)
[2016-12-14] MEDS: PROTONIX IV SCH (19:38)
[2016-12-14] MEDS: SODIUM CHLORIDE 0.9% INJ SCH (19:38)
[2016-12-14] MEDS ORDERED: CARDIZEM 100 MG/NS 100 ML ONE (20:10)
[2016-12-14] MEDS: CARDIZEM 100 MG/NS 100 ML IV SCH (20:34)
[2016-12-15] MEDS: HUMULIN R SUBQ SCH ×5 (03:25→20:10)
[2016-12-15] MEDS: MERREM 1 GM in NS 50 ML IV SCH ×2 (03:25→11:11)
[2016-12-15] MEDS: CLINIMIX E 4.25%-5% SOLUTION 1,000 ML IV SCH (03:34)
[2016-12-15] MEDS: LEVOPHED 8 MG in D5 1/2 NS 250 ML IV SCH ×4 (03:37→19:05)
[2016-12-15] MEDS: ALBUTEROL NEB INH PRN ×2 (04:19→15:48)
[2016-12-15] MEDS: HALDOL IV PRN ×2 (04:32→15:30)
[2016-12-15 05:37] LABS: BASO% 0.3 % (0.0-0.8); EOS# 0.16 X1000 (0.0-0.7); EOS% 0.6 % (0.0-10.0); HEMATOCRIT 25.7 % (42.0-52.0); HEMOGLOBIN 8.4 g/dL (14.0-18.0); IMM GRAN# 0.97 X1000 (0.0-0.04); IMM GRAN% 3.5 % (0.0-0.5); LYMPH# 1.56 X1000 (1.2-3.4); LYMPH% 5.6 % (20.5-51.1); MANUAL DIFF NEEDED? YES; MCH 28.3 PG (27-31); MCHC 32.7 g/dL (33-37); MCV 86.5 FL (81-99); MONO# 1.27 X1000 (0.11-0.59); MONO% 4.6 % (1.7-9.3); MPV 12.1 FL (7.4-10.4); NEUT% 85.4 % (42.2-75.2); PLT 448 X1000 (130-400); RBC 2.97 XMIL (4.7-6.1)
[2016-12-15 05:55] LABS: ALLEN TEST YES; BE -11.7 mmoll (-3.0-3.0); BLOOD TYPE ARTERIAL; DRAW SITE R RADIAL; METHB 1.6 % (0.0-1.5); O2(CT) 10.1 mL/dL (15.0-23.0); PCO2(98.6) 23 mmHg (35-45); PO2(98.6) 133 mmHg (60-100); SAMPLE BLOOD; THB 7.2 g/dL (11.5-17.4); pH(98.6) 7.35 (7.35-7.45)
[2016-12-15 05:56] LABS: MODALITY VENTIMASK
[2016-12-15] MEDS: NEO-SYNEPHRINE 50 MG in NS 250 ML IV SCH ×2 (06:00→09:14)
[2016-12-15] MEDS: SYNTHROID IV SCH (06:38)
[2016-12-15 06:46] LABS: INR 1.39; PROTIME 14.8 Seconds (9.2-11.7)
[2016-12-15 06:49] LABS: PTT 40.7 Seconds (22.0-36.0)
[2016-12-15 07:03] LABS: AGAP 16; ALBUMIN 1.2 g/dL (3.5-5.0); ALKALINE PHOSPHATASE 132 U/L (32-122); BUN 64 mg/dL (8-22); CALCIUM 7.8 mg/dL (8.8-10.2); CHLORIDE 106 mmol/L (98-107); COSMO 302; GOT 59 U/L (10-34); GPT 31 U/L (10-44); MAGNESIUM 2.2 mg/dL (1.5-2.7); POTASSIUM 4.1 mmol/L (3.5-5.1); SODIUM 141 mmol/L (136-145); TCO2 19 mmol/L (25-35); TOTAL BILIRUBIN 0.59 mg/dL (0.20-1.00); TOTAL PROTEIN 4.5 g/dL (6.3-8.3)
[2016-12-15] MEDS: LASIX IV SCH ×2 (07:31→22:23)
--- NOTE | 2016-12-15 07:39 | Diag Imaging Result Document ---
PROCEDURE NAME: CHEST-PORTABLE - 12/15/2016 SINGLE FRONTAL RADIOGRAPH OF THE CHEST: COMPARISON: 12/13/2016. FINDINGS: Right PICC line is stable. NG tube projects below the diaphragm and is assumed to be in the stomach. Inspiration is suboptimal. Bibasilar atelectasis and/or infiltrate, more prominent on the right is essentially stable. No new consolidations identified. There is stable cardiomegaly. IMPRESSION: Grossly stable chest.
[2016-12-15 08:34] LABS: BANDS 18 % (0-1); LYMPHS 8 % (21-51); MONO 4 % (1-9)
[2016-12-15 09:10] LABS: AGAP 17; BUN 66 mg/dL (8-22); CALCIUM 7.3 mg/dL (8.8-10.2); CHLORIDE 107 mmol/L (98-107); COSMO 306; POTASSIUM 4.2 mmol/L (3.5-5.1); SODIUM 143 mmol/L (136-145); TCO2 19 mmol/L (25-35)
--- NOTE | 2016-12-15 09:12 | PROGRESS NOTE ---
DATE: 12/15/2016 Mr. Yost is doing very poorly. He is on two blood pressure agents, Levophed and Federico-Synephrine. His blood pressure is maintained at the present time. He received 2 units from blood transfusion this morning. He continues to have some GI bleeding. He went into atrial fibrillation last night and he was placed on Cardizem drip. He had a cardiology consult as well as a GI consult. I discussed at length with his daughter that he is doing poorly. She wants him to be a full code. His O2 saturation is 100% at the present time. He does take deep breaths. Lungs are rales. Overall condition is poor. He will continue with the current management .
[2016-12-15] MEDS: DILAUDID IV PRN ×2 (09:50→21:44)
[2016-12-15] MEDS: CARDIZEM 100 MG/NS 100 ML IV SCH (10:30)
[2016-12-15] MEDS: SODIUM BICARBONATE 8.4% 100 MEQ in D5W 1,000 ML IV SCH ×2 (13:20→19:29)
--- NOTE | 2016-12-15 13:49 | PROGRESS NOTE ---
DATE: 12/15/2016 ADDENDUM: Mr. Yost's blood gases look satisfactory; however, the lactate level has gone up to 6.8. After 2 units of transfusion, hemoglobin went up from 6.8 to 8.4, hematocrit 22.3 to 25.7.
[2016-12-15] MEDS ORDERED: GLYCERIN ADULT PR ONE (14:31)
[2016-12-15] MEDS ORDERED: DULCOLAX PR ONE (15:00)
--- NOTE | 2016-12-15 15:04 | PROGRESS NOTE ---
DATE: 12/15/2016 Mr. Yost is awake, alert, attentive. He followed simple commands consistently. He was able to raise his arms and his demonstrated power at the shoulder is a little bit better today than in recent days. He does not demonstrate any improvement in proximal leg muscle power. There is no new deficit on limited exam. No new suggestion from neurologic standpoint today. Thanks for allowing me to follow Mr. Yost. [facility]
--- NOTE | 2016-12-15 15:20 | Diag Imaging Result Document ---
PROCEDURE NAME: ABDOMEN/PELVIS W/O CONTRAST - 12/15/2016 CT ABDOMEN AND PELVIS WITHOUT CONTRAST. DOSE REDUCTION PROTOCOL. COMPARISON: 12/11/2016. FINDINGS: There is bronchiectasis with atelectasis in the lower lungs. Partial clearing of the basilar infiltrates. The markings which remain may simply be fibrosis. There is a nasogastric tube which enters the stomach. [id number] right perinephric fluid and possible hematoma. This has slightly increased in size compared to the prior exam. The right kidney is displaced anteriorly. No right renal stone although there are several left renal stones. No hydronephrosis. The small bowel loops are much less distended than on the prior exam. There is a large amount of stool and fluid throughout the colon. This has increased compared to the prior exam. There are scattered diverticula. Mesenteric fluid or soft tissue in the mid abdomen remains and may be slightly increased. Normal aorta. A Franks catheter has the urinary bladder decompressed. The uterus has been removed. No pelvic mass. IMPRESSION: 1. Improvement in the distended small bowel loops although a large amount of stool remains in the colon. 2. No improvement in the right retroperitoneal fluid/hematoma or in the mesenteric fluid or soft tissue. 3. Mild improvement in the lung bases. 4. Small amount of fluid about the dome of the liver is more pronounced than on the prior exam. 5. Nonobstructing left renal stones.
[2016-12-15 15:26] LABS: HEMOGLOBIN 8.7 g/dL (14.0-18.0)
[2016-12-15] MEDS ORDERED: GOLYTELY PO ONE (16:14)
--- NOTE | 2016-12-15 17:31 | CONSULTATION ---
DATE OF CONSULTATION: 12/15/2016 REASON FOR REFERRAL: GI bleed. Anemia. HISTORY OF PRESENT ILLNESS: This is a 61-year-old, white male, who has been in the hospital since 11/14/2016. He was admitted with shortness of breath, diagnosed with pneumonia. He has a history of recurrent congestive heart failure. He has coronary artery disease. Had bypass grafting complicated by an LAD dissection in 2013. Since he has been in the hospital, he has had some issues with constipation and poor bowel function. He was evaluated by Dr. Pizano. Last imaging by CT scan was on 12/11/2016 that showed distended loops of the small bowel. Terminal ileum was decompressed. Gaseous distention in the majority of the colon. Extensive mesenteric edema. Since yesterday has reported 2 episodes of bloody stools. He has had a drop in his hemoglobin and hematocrit and has required a total of 4 units of packed red blood cells. He has an NG tube to low intermittent suction that is draining clearish brown contents, but no evidence of coffee- ground contents or bright red blood noted. The patient reports that he had a colonoscopy several years ago by Dr. Montes. The patient reports occasional abdominal pain. Currently no reported chest pain. He does have some shortness of breath. He is on a 50% Ventimask. PAST MEDICAL HISTORY: For coronary artery disease, congestive heart failure, atrial fib, history of ventricular tachycardia, history of chronic renal insufficiency. PAST SURGICAL HISTORY: Coronary artery bypass graft complicated by LAD dissection in 2013. He reports having a colonoscopy several years ago. ALLERGIES: Lisinopril causing dizziness, lorazepam causing tachycardia, morphine causing flushing, aspirin causing bleeding, Lipitor causing diarrhea and dizziness, carvedilol causing elevated heart rate, codeine causing nausea and vomiting, metformin causing nausea and vomiting, and Januvia flushing. HOME MEDICATIONS: 1. Hydrocodone 10/325 twice a day as needed. 2. Nitrostat 0.4 mg sublingual as needed. 3. Lopressor 25 mg twice a day. 4. Aldactone 25 daily. 5. Prednisone 5 mg daily. 6. Potassium 10 mEq twice a day. 7. Prilosec 20 mg daily. 8. Synthroid 100 mcg daily. 9. Lasix 40 mg twice daily. 10. Xanax 1 mg twice a day as needed. 11. Albuterol inhaler every 8 hours as needed. SOCIAL HISTORY: Denies tobacco or alcohol use. He is single. He has 2 children. REVIEW OF SYSTEMS: Per HPI. PHYSICAL EXAM: Vital Signs: Temperature 97.4 degrees, pulse 99, respirations 22, blood pressure 116/79. General Appearance: Patient is drowsy, but he arouses and is oriented to person, place, and time. HEENT: Has an NG tube to low intermittent suction draining light brown drainage with no noted coffee-ground emesis or bright red bleeding. Cardiovascular: With history of atrial fibrillation/tachycardia. He is on a Cardizem drip. He is also on Federico-Synephrine and Levophed. Respiratory: Lung sounds decreased, but essentially clear. Abdomen: Distended. He does have positive bowel sounds. Only mild tenderness to palpation. Neurological: Cranial nerves 2-12 grossly intact. Patient is drowsy, but arouses easily. Extremities: No lower extremity edema noted, +2 pedal pulses bilaterally. DIAGNOSTIC RESULTS: Laboratory: Hematology-white count 27.82, hemoglobin 8.4, hematocrit 25.7, MCV 86.5, platelets 448. Chemistry-sodium 143, potassium 4.2, chloride 107, CO2 19, BUN 66, creatinine 1.0, glucose 134. Previous CT scan of the abdomen and pelvis on 12/11 showed multiple distention of small-bowel loops. Terminal ileum was decompressed. Gaseous distention in the majority of the colon with fecal impaction. Extensive mesenteric edema. Prominent fluid collection in the right perirenal space. ASSESSMENT AND PLAN: 1. Abdominal distention. 2. Questionable gastrointestinal bleed. 3. Anemia. 4. History of cardiomyopathy. 5. Hypotension on vasopressors. 6. Atrial fibrillation with tachycardia on Cardizem drip. The patient has had 2 bloody stools with decreased hemoglobin and hematocrit, and has required transfusion. We will continue to monitor for active bleeding. Currently is hemodynamically unstable. Will proceed with a CT scan of the abdomen and pelvis first with no contrast to see if we can evaluate for any intra-abdominal bleeding. Continue hemodynamic resuscitation. Monitor hemoglobin and hematocrit and transfuse packed red blood cells if needed. Will give 1 glycerin suppository followed by 1 Dulcolax suppository. Further plans will be made according to findings and his symptoms. The patient has been seen by Dr. Hoover. He has discussed the case with his daughter, who was at the bedside and answered pertinent questions. Thank you for this consultation. Dictated by BERLIN Novoa for Adrian Hoover MD
[2016-12-15] MEDS ORDERED: VANCOMYCIN IV PER PHARMACY MISC SCH (17:45)
--- NOTE | 2016-12-15 18:10 | PROGRESS NOTE ---
DATE: 12/15/216 PRESENT ILLNESS: The patient was being treated for pneumonia. He had 14 days of meropenem. I think the patient's pneumonia has improved, and yesterday micafungin and vancomycin were discontinued. Today the patient had elevation of his white count to 27,820. This occurred while he was on meropenem. MEDICATION: Meropenem. PHYSICAL EXAMINATION: Vital Signs: Temperature is 99.1 degrees, pulse 94, respiration is 20, blood pressure 142/82. General: This is a somewhat ill-appearing, middle-aged male who is in no acute distress. Lungs: Clear to auscultation. Cardiovascular: Heart rate is regular. Abdomen: Distended and soft. I did not hear any bowel sounds. Neurologic: Patient is awake. He is talking today much more than he had 2 days ago. He is in no acute distress. He moved his extremities to request. LAB AND X-RAY: Chest x-ray shows stable lung drew, no new consolidation is present. Creatinine is 1.0. GFR is greater than 60. White count is 27,820, hemoglobin 8.7, and platelet count 448,000. Blood gases show a pH of 7.35, a PO2 of 133, and a pCO2 of 23. The patient did have a CT scan today. It showed the following: There was improvement in the distended small bowel loops but there was still a large amount of stool in the colon. There was no improvement in the right retroperitoneal fluid collection or in the mesenteric fluid collection and soft tissue. There was mild improvement in the lung bases. There was a small amount of fluid in the dome of the liver. There were nonobstructing left renal stones. ASSESSMENT AND PLAN: Patient has leukocytosis which unfortunately today got higher. I think the patient's pneumonia has cleared. I think he has been on meropenem for a long time and since his white count increased while he is on it, I have discontinued that. I have restarted vancomycin and I have ordered 2 blood cultures. The patient's comorbidities include COPD and the fact that he has an ileus of the abdomen. [facility]
[2016-12-15 18:48] LABS: HEMATOCRIT 22.5 % (42.0-52.0); HEMOGLOBIN 7.5 g/dL (14.0-18.0)
--- NOTE | 2016-12-15 19:04 | PROGRESS NOTE ---
DATE: 12/15/2016 ICU 16. SUBJECTIVE: Mr. Yost is in about the same general condition. LABS: Hemoglobin was 8.7 this morning, hematocrit 27, electrolytes are normal, BUN 66. IMAGING STUDIES: His CT scan of the abdomen was repeated and it revealed improvement in the distended small bowel loops. A large amount of stool was present in the colon. He had 2 bloody stools today. ASSESSMENT AND PLAN: He was seen by Dr. Hoover who wants to proceed with a colonoscopy in the morning. The family understands that it is a big risk and they want him to proceed with the colonoscopy. He continues to be on Levophed as well as Federico-Synephrine. Prognosis is poor. Family is aware of it.
[2016-12-15] MEDS: PROTONIX IV SCH (19:30)
[2016-12-15] MEDS: VANCOMYCIN 1.8 GM in NS 250 ML IV SCH (19:30)
[2016-12-15] MEDS: SODIUM CHLORIDE 0.9% INJ SCH (19:30)
[2016-12-15] MEDS ORDERED: NS 500 ML ONE (19:34)
[2016-12-15] MEDS ORDERED: NS 500 ML IV SCH (20:30)
[2016-12-16] MEDS ORDERED: DULCOLAX PO ONE
[2016-12-16] MEDS: HUMULIN R SUBQ SCH ×6 (00:08→19:35)
[2016-12-16] MEDS: LASIX IV SCH (01:51)
[2016-12-16] MEDS: CARDIZEM 100 MG/NS 100 ML IV SCH ×2 (01:55→17:45)
[2016-12-16] MEDS: CLINIMIX E 4.25%-5% SOLUTION 1,000 ML IV SCH (03:15)
[2016-12-16] MEDS: LEVOPHED 8 MG in D5 1/2 NS 250 ML IV SCH (03:27)
--- NOTE | 2016-12-16 03:43 | PROGRESS NOTE ---
DATE: 12/15/2016 SUBJECTIVE: Called to the patient's bedside by nursing staff. HISTORY OF PRESENT ILLNESS: The patient is currently receiving GoLYTELY in anticipation of performing a colonoscopy to evaluate abdominal distention and presumed lower GI bleed. While infusing the GoLYTELY, his abdomen has become progressively more distended over the evening which has been associated with right lower quadrant pain. He has had no bowel movement per Se but has passed a softball size blood clot per rectum. The patient states that his abdomen is uncomfortable, especially in the right lower quadrant. He denies fevers, chills, nausea, and vomiting. His gastric residual was checked and was less than 150 mL. OBJECTIVE: Physical Examination: General: On examination, he is in no acute distress but appears ill. Vital Signs: His blood pressure is 117/68, pulse 98, respirations 21, and temperature of 97.9 degrees. HEENT: Remarkable for a nasogastric tube in the left naris. His oropharyngeal mucosal membranes are dry. The sclerae are anicteric. Pulmonary Examination: His lungs are clear anteriorly. He has decreased breath sounds posteriorly. Cardiovascular Examination: Reveals regular rate and rhythm with no gallops, murmurs, or rubs. Abdominal Examination: Reveals markedly hypoactive bowel sounds. The abdomen is soft but very distended with right lower quadrant tenderness. There is no rebound or guarding. His abdominal wall is ecchymotic. Extremities: Bilaterally are remarkable for 2+ pitting edema. Objective Data: His hemoglobin is 7.5 with a hematocrit of 22.5 and a white count of 27.82. He has 448,[address] scans were reviewed in the computer. IMPRESSION: 1. Small bowel and colonic distention. 2. Gastrointestinal bleed. 3. Transverse colon and fecal impaction on CT scan. 4. Right lower quadrant pain with GoLYTELY infusion. RECOMMENDATION: 1. I would hold GoLYTELY at this time. 2. Administer Dulcolax orally 10 mg 1 p.o. now. 3. Perform a soapsuds enema now and again at 2 a.m. 4. Once he begins defecating, you can resume the GoLYTELY. 5. He may require decompressive PEG. 6. Dr. Hoover to return by 8:00 a.m. to resume care of this patient. Please notify Dr. Kiko of updates regarding his abdominal distention, right lower quadrant pain, and stool output.
[2016-12-16 05:04] LABS: EOS# 0.29 X1000 (0.0-0.7); HEMATOCRIT 28.5 % (42.0-52.0); HEMOGLOBIN 9.7 g/dL (14.0-18.0); LYMPH# 1.65 X1000 (1.2-3.4); LYMPH% 5.9 % (20.5-51.1); MCH 29.4 PG (27-31); MCV 86.4 FL (81-99); MONO# 1.11 X1000 (0.11-0.59); MPV 11.6 FL (7.4-10.4); NEUT% 89.1 % (42.2-75.2); PLT 259 X1000 (130-400)
[2016-12-16 05:16] LABS: AGAP 13; AMYLASE 495 U/L (20-200); BUN 65 mg/dL (8-22); CALCIUM 7.3 mg/dL (8.8-10.2); CHLORIDE 105 mmol/L (98-107); COSMO 300; POTASSIUM 3.3 mmol/L (3.5-5.1); SODIUM 141 mmol/L (136-145); TCO2 23 mmol/L (25-35)
[2016-12-16] MEDS: SYNTHROID IV SCH (06:14)
[2016-12-16] MEDS: DILAUDID IV PRN ×3 (07:38→22:40)
[2016-12-16 08:15] LABS: MANUAL DIFF NEEDED? NO
[2016-12-16] MEDS: 1/2 NS + KCL 20 MEQ 1,000 ML IV SCH (09:16)
--- NOTE | 2016-12-16 10:18 | PROGRESS NOTE ---
DATE: 12/16/2016 SUBJECTIVE: Mr. Yost is doing somewhat better. He has been off Federico-Synephrine and we are decreasing the Levophed. His bleeding appears to have slowed down, as hemoglobin is 9.7, hematocrit 27.5. He is slightly more alert. He responded to the verbal stimuli. Abdomen is still distended, but soft. It is slightly tender. He is going to have a colonoscopy done. His white count is 27.9, hemoglobin 9.7, potassium is 3.3. BUN 65, creatinine 1.0. We will continue to watch him closely. We will do the CBC and Chem-7 in the morning and then decide. His blood sugar has been stable.
[2016-12-16] MEDS ORDERED: MYLICON DROPS (DOSE) MISC ONE (12:46)
[2016-12-16] MEDS ORDERED: DIPRIVAN 1% ONE (13:38)
[2016-12-16] MEDS ORDERED: EXTENSION SET 32 IN 4522 ONE (13:45)
[2016-12-16] MEDS ORDERED: ANESTHESIA PB SET 88 IN 5742 ONE (13:45)
[2016-12-16] MEDS ORDERED: NEO-SYNEPHRINE ONE (13:45)
[2016-12-16] MEDS ORDERED: XYLOCAINE-MPF 2% ONE (13:45)
[2016-12-16] MEDS ORDERED: NS 1,000 ML ONE (13:45)
--- NOTE | 2016-12-16 15:35 | OPERATIVE NOTE ---
PROCEDURE DATE: 12/16/2016 PROCEDURE: Colonoscopy and biopsy. PREOPERATIVE DIAGNOSES: 1. Gastrointestinal bleed. 2. Anemia secondary to gastrointestinal bleed. POSTOPERATIVE DIAGNOSIS: 1. Ulcer in the rectosigmoid area, rectum, and anal canal, biopsied. 2. Diverticulosis. HISTORY: This 61-year-old gentleman with multiple medical problems, has been in the hospital for almost a month now with treatment of respiratory and cardiac ailments. Recently , he started having some bright red blood per rectum and became anemic requiring transfusion. Endoscopy was done for diagnostic as well as therapeutic purposes. DESCRIPTION OF PROCEDURE: Informed consent was obtained from the patient's daughter. The procedure risks, benefits, alternatives were explained in layman's terms. Risks of, but not limited to bleeding, perforation, and aspiration pneumonia was explained. She understood and also understood that considering his comorbid conditions, he carries high risk. She agreed to proceed. Patient was brought to the endoscopy unit and was premedicated as per Anesthesia. After adequate sedation, while he was lying in left lateral position, digital rectal exam was performed, which revealed external anal tags, no bleeding hemorrhoids seen. I could see brownish stool tinged with blood oozing removed from the rectum. The scope was then gently introduced into the rectum and immediately I saw the rectal vault coated with blood tinged brownish stool. Vigorous irrigation and suctioning was employed to cleanse the area as much as possible and I was able to advance the scope all the way up to what appeared to be in the splenic flexure. Further advancement was not possible because of poor prep and poor visualization. The scope was then withdrawn paying careful attention to details. Preparation again was poor. Vigorous irrigation and suctioning was employed. The descending colon and most of the sigmoid colon appeared to be normal except scattered diverticula without any evidence of diverticulitis or diverticular bleeding. Starting from rectosigmoid junction and into the rectum as well as the anal canal, there was a large geographic ulcer seen. This ulcer had thickened almost overhanging edges, but I did not see any visible vessel or active bleeding from the ulcer bed. The ulcer is as mentioned above extended all the way up to the inguinal canal below the dentate line. Multiple biopsies were obtained from the ulcer edges and scope was then removed. Patient tolerated the procedure well. No complications noted. Patient was then transferred to the recovery area in a stable condition. IMPRESSION: Large ulcer involving the rectosigmoid area, circumferential large ulcer in the rectal vault as well as in the anal canal. The appearance of the ulcer is suggestive of stercoral ulcer, however, neoplastic lesion has to be ruled out. RECOMMENDATION: I would start him on milk of magnesia 30 mL every night to have regular bowel movement and start him with ice chips and sips and advanced the diet and discontinue NG tube depending on how he progresses from here on. I have explained the findings and plan to the patient. He was not completely awake. No family members were available at the time of my completing the procedure and case was also discussed with Dr. Hare. [facility]
--- NOTE | 2016-12-16 17:59 | PROGRESS NOTE ---
DATE: 12/16/2016 PRESENT ILLNESS: The patient has an elevated white count, the exact etiology of which is uncertain to me. MEDICATIONS: I restarted vancomycin yesterday. Therefore, this is day 1 of vancomycin therapy. PHYSICAL EXAMINATION: Vital signs: Temperature 96.7, pulse 90, respirations 18, blood pressure 110/57. General: This is a chronically ill-appearing middle-aged male. He is in no acute distress. In fact, now he is sleeping. Lungs: Clear to auscultation. Cardiovascular: Regular heart rate. Abdomen: Slightly protuberant but it is soft and nontender. Neurologic: The patient is sleeping. There was no tremor. LAB AND X-RAY: Today the CBC has a white count of 27,970, hemoglobin 9.7, and platelet count 259,000. Blood cultures are pending. Today there is no new radiographic study. Likewise, on laboratory findings, the patient does not have a BMP today and does not have an arterial blood gas today. Also, there are no new culture results. Blood cultures are all negative. ASSESSMENT AND PLAN: For right now, I am going to continue with vancomycin. He does have a leukocytosis, the etiology of which is uncertain to me. The patient's comorbidities include the fact that the patient has COPD and an ileus of his abdomen.
[2016-12-16] MEDS: PROTONIX IV SCH (20:00)
[2016-12-16] MEDS: MILK OF MAGNESIA PO SCH (21:11)
[2016-12-16] MEDS: VANCOMYCIN 1.8 GM in NS 250 ML IV SCH (21:11)
[2016-12-16] MEDS: DUONEB (A & A) INH SCH (21:24)
[2016-12-16] MEDS ORDERED: DUONEB (A & A) INH SCH (22:00)
[2016-12-17] MEDS: HUMULIN R SUBQ SCH ×6 (00:16→20:15)
[2016-12-17] MEDS: LEVOPHED 8 MG in D5 1/2 NS 250 ML IV SCH ×2 (01:51→20:17)
[2016-12-17] MEDS: DUONEB (A & A) INH SCH ×4 (02:38→19:00)
[2016-12-17] MEDS: CLINIMIX E 4.25%-5% SOLUTION 1,000 ML IV SCH ×2 (03:30→20:14)
[2016-12-17] MEDS: DILAUDID IV PRN ×4 (03:57→20:15)
[2016-12-17 04:51] LABS: ALLEN TEST YES; BE -1.8 mmoll (-3.0-3.0); BLOOD TYPE ARTERIAL; DRAW SITE R RADIAL; METHB 0.5 % (0.0-1.5); O2(CT) 11.6 mL/dL (15.0-23.0); PCO2(98.6) 38 mmHg (35-45); PO2(98.6) 85 mmHg (60-100); SAMPLE BLOOD; SAO2 100.9 % (95.0-100.0); THB 8.4 g/dL (11.5-17.4); pH(98.6) 7.39 (7.35-7.45)
[2016-12-17 04:52] LABS: MODALITY CANNULA
[2016-12-17] MEDS: 1/2 NS + KCL 20 MEQ 1,000 ML IV SCH (05:07)
[2016-12-17 05:48] LABS: AGAP 17; AMYLASE 466 U/L (20-200); BUN 68 mg/dL (8-22); CALCIUM 7.7 mg/dL (8.8-10.2); CHLORIDE 104 mmol/L (98-107); COSMO 300; LIPASE 87 U/L (13-60); POTASSIUM 3.3 mmol/L (3.5-5.1); SODIUM 140 mmol/L (136-145); TCO2 19 mmol/L (25-35)
[2016-12-17] MEDS: SYNTHROID IV SCH (06:11)
[2016-12-17] MEDS: CARDIZEM 100 MG/NS 100 ML IV SCH (06:11)
[2016-12-17 06:12] LABS: BASO% 0.1 % (0.0-0.8); EOS# 0.24 X1000 (0.0-0.7); EOS% 0.8 % (0.0-10.0); HEMATOCRIT 26.4 % (42.0-52.0); HEMOGLOBIN 8.9 g/dL (14.0-18.0); IMM GRAN# 0.48 X1000 (0.0-0.04); IMM GRAN% 1.6 % (0.0-0.5); LYMPH# 1.08 X1000 (1.2-3.4); LYMPH% 3.7 % (20.5-51.1); MANUAL DIFF NEEDED? NO; MCH 29.2 PG (27-31); MCHC 33.7 g/dL (33-37); MCV 86.6 FL (81-99); MONO# 0.68 X1000 (0.11-0.59); MONO% 2.3 % (1.7-9.3); MPV 11.7 FL (7.4-10.4); NEUT% 91.5 % (42.2-75.2); PLT 231 X1000 (130-400); RBC 3.05 XMIL (4.7-6.1)
--- NOTE | 2016-12-17 07:47 | Diag Imaging Result Document ---
PROCEDURE NAME: CHEST-PORTABLE - 12/17/2016 SINGLE FRONTAL RADIOGRAPH OF THE CHEST: COMPARISON: 12/15/2016. FINDINGS: Right PICC line and NG tube were in stable position. Bibasilar atelectasis and/or infiltrate, more prominent on the right is stable. No new consolidation is identified. Cardiac silhouette is stable. IMPRESSION: Stable chest.
[2016-12-17] MEDS ORDERED: LASIX IV ONE (09:29)
--- NOTE | 2016-12-17 11:23 | PROGRESS NOTE ---
DATE: 12/17/2016 Mr. Yost is in about the same general condition except that he is more alert. He is only on Levophed now. He is still getting Cardizem drip. Abdomen is still distended. He had the colonoscopy performed by Dr. Degroot yesterday which according to him, he had an ulcer in the rectosigmoid area and anal canal which was biopsied. Diverticulosis was also there. His potassium continues to be a little low, it is 3.3. His white count is 29.2. Overall condition is unchanged.
[2016-12-17] MEDS: POTASSIUM CHLORIDE IV SCH (11:49)
[2016-12-17] MEDS: 1/2 NS IV SCH (11:49)
--- NOTE | 2016-12-17 12:57 | PROGRESS NOTE ---
DATE: 12/17/2016 SUBJECTIVE: The patient is resting in no acute distress. He only arouses slightly to stimulus. I did not pressure him to wake up. OBJECTIVE: Respiratory: Essentially clear. NG is still in place but clamped. Abdomen: Still distended but with some positive bowel sounds and soft. OBJECTIVE: Vital Signs: Temperature 99.6 degrees, pulse 85, respirations 16, blood pressure 103/49. LABORATORY RESULTS: Hematology count 29.24, hemoglobin 8.9, hematocrit 26.4, MCV 86.6, platelets 231,000. Chemistry: Sodium 140, potassium 3.3, chloride 104, CO2 19, BUN 68, creatinine 1.1. COLONOSCOPY FINDINGS: From 12/16/2016, showed a large ulcer involving the rectosigmoid area. Circumferential large ulcer in the rectal vault as well as the anal canal. Most likely, stercoral ulcer; however, biopsy was done and is pending. PLAN: Continue supportive care. Milk of magnesia daily to keep his bowels moving. NG tube is clamped. We will slowly advance his diet. We will start with clear liquids slowly and advance as tolerated. Dr. Leon's group is on-call over the weekend for GI. Dr. Hoover will return on Tuesday. Further plans will be made as needed. I have discussed this case with Dr. Hoover. Dictated by BERLIN Novoa for Adrian Hoover MD
[2016-12-17] MEDS: ZOSYN 3.375 GM/NS 50 ML IV SCH ×2 (16:43→23:37)
--- NOTE | 2016-12-17 16:54 | PROGRESS NOTE ---
DATE: 12/17/2016 PRESENT ILLNESS: The patient has a mild leukocytosis, the exact etiology of which is uncertain to me. His abdomen also remains very distended. MEDICATIONS: The patient currently is receiving vancomycin. However, the patient's white count continues to increase. PHYSICAL EXAMINATION: Vital Signs: Temperature is 99.2 degrees, pulse 94, respirations 20, blood pressure is 101/60. General: This is an ill-appearing, middle-aged male. He is in no acute distress. Lungs: Clear to auscultation. Cardiovascular: Regular heart rate. Abdomen: Abdomen remains distended, but soft. I did not hear bowel sounds. Neurologic: Patient is awake. He moves his extremities. He carried on a conversation. LAB AND X-RAY: Chest x-ray shows bibasilar atelectasis versus pneumonia. White count today is 29,240, hemoglobin 8.9, and platelet count 231,000. Blood gases show a pH of 7.39, a PO2 of 85 and a pCO2 of 38. Creatinine is 1.1 with a GFR of greater than 60. ASSESSMENT AND PLAN: The patient has leukocytosis and possible bibasilar pulmonary infiltrates. He already is on vancomycin. To this, I am going to add Zosyn. He also has a distended abdomen possibly due to an ileus, but hopefully not due to an obstruction. The patient's comorbidity is that he has severe chronic obstructive pulmonary disease and possibly an ileus of his abdomen.
[2016-12-17] MEDS: SODIUM CHLORIDE 0.9% INJ SCH (20:15)
[2016-12-17] MEDS: PROTONIX IV SCH (20:15)
[2016-12-17] MEDS: VANCOMYCIN 1.8 GM in NS 250 ML IV SCH (21:51)
[2016-12-17] MEDS: MILK OF MAGNESIA PO SCH (21:52)
[2016-12-18] MEDS: HUMULIN R SUBQ SCH ×7 (00:20→23:36)
[2016-12-18] MEDS: 1/2 NS IV SCH (01:09)
[2016-12-18] MEDS: POTASSIUM CHLORIDE IV SCH (01:09)
[2016-12-18] MEDS: DILAUDID IV PRN ×4 (01:14→19:33)
[2016-12-18] MEDS: DUONEB (A & A) INH SCH ×4 (03:09→22:50)
[2016-12-18] MEDS: ZOSYN 3.375 GM/NS 50 ML IV SCH ×4 (04:44→22:33)
[2016-12-18] MEDS: CARDIZEM 100 MG/NS 100 ML IV SCH (05:27)
[2016-12-18] MEDS: HALDOL IV PRN (05:45)
[2016-12-18] MEDS: SYNTHROID IV SCH (06:08)
[2016-12-18 07:50] LABS: BASO% 0.1 % (0.0-0.8); EOS# 0.16 X1000 (0.0-0.7); EOS% 0.6 % (0.0-10.0); HEMATOCRIT 25.8 % (42.0-52.0); HEMOGLOBIN 8.6 g/dL (14.0-18.0); IMM GRAN% 1.1 % (0.0-0.5); MANUAL DIFF NEEDED? YES; MCHC 33.3 g/dL (33-37); MCV 86.9 FL (81-99); MONO# 0.66 X1000 (0.11-0.59); MONO% 2.5 % (1.7-9.3); MPV 10.9 FL (7.4-10.4); NEUT% 92.7 % (42.2-75.2); PLT 248 X1000 (130-400); RBC 2.97 XMIL (4.7-6.1)
[2016-12-18 08:13] LABS: AGAP 13; BUN 59 mg/dL (8-22); CALCIUM 7.7 mg/dL (8.8-10.2); CHLORIDE 105 mmol/L (98-107); COSMO 295; POTASSIUM 3.9 mmol/L (3.5-5.1); SODIUM 140 mmol/L (136-145); TCO2 22 mmol/L (25-35)
--- NOTE | 2016-12-18 08:28 | Diag Imaging Result Document ---
PROCEDURE NAME: CHEST-PORTABLE - 12/18/2016 AP CHEST AND ABDOMEN: REASON FOR STUDY: For NG tube placement. FINDINGS: The NG tube tip is in the left upper quadrant presumably in the stomach. There is gaseous dilatation of multiple small bowel loops possibly indicating ileus or small bowel obstruction. IMPRESSION: NG tube in the stomach.
--- NOTE | 2016-12-18 08:46 | PROGRESS NOTE ---
DATE: 12/18/2016 SUBJECTIVE: No major issues reported by the nursing staff. Essentially stable overnight. He still requires a little bit of Levophed, 15 mcg. He has not had a bowel movement in the last 24 hours, but his distention appears to be improving. He is thus far tolerating his clear liquid diet started by GI. OBJECTIVE: Vital Signs: The patient is currently afebrile. Pulse is 90, respiratory rate 19 and nonlabored, blood pressure 100/55 on 15 mcg of Levophed and O2 saturation is 96. General exam: No acute distress. Interactive, male. HEENT: Normocephalic, atraumatic. Pupils equal, round, reactive to light. Mucous membranes moist. NG tube in place, but clamped. Neck: Supple. Trachea midline. Cardiovascular: Normal sinus rhythm right now. Lungs: Grossly clear. Abdomen: Distended, but soft and nontender. Improved bowel sounds auscultated. Extremities: Moves all extremities. Neurologic: Interactive. Vascular: All extremities perfused. LABORATORY: Currently pending. ASSESSMENT AND PLAN: This is a 61-year-old male with stercoral ulcer from chronic constipation. At this time we will follow with you. Agree with gastroenterology's plan to continue laxatives and advance diet as tolerated. At this time no surgical intervention planned, but will keep an eye on this patient.
--- NOTE | 2016-12-18 08:52 | Diag Imaging Result Document ---
PROCEDURE NAME: CHEST-PORTABLE - 12/18/2016 AP PORTABLE CHEST AT 0500 HOURS: FINDINGS: There is atelectasis or pneumonia present in the right base. There is some slight increase in opacification of the lingula compared to 12/17/2016, otherwise, there has been no significant change. There continues to be cardiomegaly. IMPRESSION: Slightly worsened pulmonary edema or pneumonia on the left. Stable right lower lobe pneumonia.
[2016-12-18] MEDS ORDERED: LASIX IV ONE (11:27)
--- NOTE | 2016-12-18 11:45 | PROGRESS NOTE ---
DATE: 12/18/2016 SUBJECTIVE: Mr. Yost is complaining of some mild abdominal discomfort today. PHYSICAL EXAMINATION: He is afebrile. His heart rate is 89. Most recent blood pressure is 94/55. His I's and O's have been positive over the last several days, 2 L over the last 24 hours, 2.5 L previous to that and 4.4 L the previous 24 hours to that. General: No acute distress. Cardiovascular: He sounds to be in an irregularly irregular rhythm. He has no obvious murmurs. He has 2+ bilateral lower extremity edema with warm and well perfused lower extremities. Chest: Exam sounds clear with poor inspiratory effort. Abdomen: Protuberant, distended, mild diffuse tenderness to palpation. PERTINENT DATA: His white count is 26.8, his hematocrit is 25.8. His platelet count is 248,000. His sodium is 140, potassium 3.9, BUN 59, creatinine 1. ASSESSMENT: 1. History of ischemic cardiomyopathy. 2. Atrial fibrillation. 3. Constipation. PLAN: I will stop the patient's IV fluids as he is getting a significant amount of IV intake with his Clinimix and IV antibiotics in addition to the IV fluids. We will dose him with furosemide at 60 mg IV x1 and check a BMP and a mag in the morning.
--- NOTE | 2016-12-18 12:36 | PROGRESS NOTE ---
DATE: 12/18/2016 Mr. Yost is more alert and trying to answer the questions. He still cannot move the lower extremities. His hand patient insurance clerk are improving. His abdomen is distended. Bowel sounds are present. He is tolerating a small amount of clear liquids. Continues to have leukocytosis with a white count of 26.82 which is actually going down. Blood gases were satisfactory and electrolytes revealed increase in the potassium which is 3.9 now. BUN is 59. Creatinine is 1.0. He continues to be on Levophed as well as IV Cardizem drip and his antibiotics currently include vancomycin and piperacillin. He is also getting IV pantoprazole, IV levothyroxine. Overall prognosis is poor. We will continue with the current management on him. There is no active bleeding at present.
[2016-12-18] MEDS: LEVOPHED 8 MG in D5 1/2 NS 250 ML IV SCH (12:38)
[2016-12-18] MEDS: VANCOMYCIN 1,800 MG in NS 250 ML IV SCH (13:03)
[2016-12-18] MEDS: PROTONIX IV SCH (19:27)
[2016-12-18] MEDS: CLINIMIX E 4.25%-5% SOLUTION 1,000 ML IV SCH (19:27)
[2016-12-18] MEDS: SODIUM CHLORIDE 0.9% INJ SCH (19:27)
[2016-12-18] MEDS: MILK OF MAGNESIA PO SCH (20:09)
[2016-12-18] MEDS ORDERED: BLISTEX MEDICATED BERRY LIP BALM TOP PRN (20:09)
[2016-12-19] MEDS: HUMULIN R SUBQ SCH ×5 (03:13→20:01)
[2016-12-19] MEDS: CARDIZEM 100 MG/NS 100 ML IV SCH ×2 (03:13→17:41)
[2016-12-19] MEDS: DUONEB (A & A) INH SCH ×4 (03:52→21:15)
[2016-12-19] MEDS: ZOSYN 3.375 GM/NS 50 ML IV SCH ×4 (05:24→22:45)
[2016-12-19] MEDS: DILAUDID IV PRN ×3 (05:27→21:45)
[2016-12-19] MEDS: SYNTHROID IV SCH (06:30)
[2016-12-19 06:45] LABS: AGAP 16; BUN 55 mg/dL (8-22); CALCIUM 7.8 mg/dL (8.8-10.2); CHLORIDE 105 mmol/L (98-107); COSMO 301; POTASSIUM 3.9 mmol/L (3.5-5.1); SODIUM 143 mmol/L (136-145); TCO2 22 mmol/L (25-35)
--- NOTE | 2016-12-19 07:08 | PROGRESS NOTE ---
DATE: 12/19/2016 SUBJECTIVE: Patient's abdominal girth has increased in the last 24 hours. He is still on Levophed at this time and Cardizem. He has had 1 small bowel movement through the course of the night. OBJECTIVE: Vital Signs: Patient is currently afebrile. His heart rate is 101, respiratory rate 24, nonlabored. Blood pressure 111/58 on Levophed. General Exam: No acute distress. Interactive, male. HEENT: Normocephalic, atraumatic. Pupils equal, round, react to light. Mucous membranes moist. Oropharynx benign. NG tube in place. Neck: Supple. Trachea midline. Cardiovascular: Regular rate and rhythm. Lungs: Grossly clear. Abdomen: Distended, but soft and nontender. Extremities: Moves all extremities. Neurologic: Interactive. Vascular: All extremities perfused. LABORATORY: Reviewed from yesterday. White blood cell count 26.8 yesterday. Electrolytes are all within normal limits. ASSESSMENT AND PLAN: A 61-year-old, male with stercoral ulcer from chronic constipation. At this time, we will continue to follow with you. At this time, we will continue with GI as planned for laxatives. If his abdominal girth continues to increase, may need to hold off on p.o. intake and keep his NG tube in place for the time being.
[2016-12-19] MEDS: LEVOPHED 8 MG in D5 1/2 NS 250 ML IV SCH (08:11)
[2016-12-19] MEDS ORDERED: LASIX IV ONE (11:07)
[2016-12-19] MEDS ORDERED: ALBUMIN 25% IV ONE (11:07)
--- NOTE | 2016-12-19 11:26 | PROGRESS NOTE ---
DATE: 12/19/2016 SUBJECTIVE: Mr. Yost reports continued mild abdominal pain and feeling somewhat anxious this morning. PHYSICAL EXAMINATION: Vital Signs: He has been afebrile. His heart rate is 99, blood pressure is 89/47. More recently, his systolics have been in the 90s to 110s. His Is and Os continue to be positive over the last 24 hours despite IV Lasix. Generally: No acute distress. Cardiovascular: He is in an irregularly irregular rhythm. No murmurs. Extremities: There is 2+ bilateral lower extremity edema, and warm and well perfused lower extremities. Chest: Examination is clear bilaterally. He has no increased work of breathing. Abdomen: Distended. Mild tenderness diffusely. No rebound or guarding. PERTINENT DATA: His sodium is 143, potassium is 3.9, BUN 55, creatinine 1.1. This is roughly stable from yesterday. His magnesium level is 2. ASSESSMENT: 1. Congestive heart failure. 2. Atrial fibrillation. PLAN: We will dose him with IV diuretics again. Also, we will dose him with some albumin. His albumin level on the was 1.2.
--- NOTE | 2016-12-19 14:04 | PROGRESS NOTE ---
DATE: 12/19/2016 Mr. Yost is in about the same general condition. Vital signs are stable. His abdomen is still distended. He tolerated the fluid liquid diet well yesterday in the morning. However in the evening he was distended. He says he is having a panic attack. We are going to put him on Xanax and see the state of his mind and then overall condition. He is otherwise unchanged. His electrolytes are normal. BUN is 55, creatinine 1.1. He had a chest x-ray done yesterday with NG tube in the stomach and really no other new findings. Overall condition is otherwise stable.
[2016-12-19] MEDS: CLINIMIX E 4.25%-5% SOLUTION 1,000 ML IV SCH (17:41)
[2016-12-19] MEDS ORDERED: SODIUM CHLORIDE 0.9% 10 ML ONE (19:50)
[2016-12-19] MEDS: PROTONIX IV SCH (20:01)
[2016-12-19] MEDS: XANAX PO SCH (20:01)
[2016-12-19] MEDS: MILK OF MAGNESIA PO SCH (20:01)
[2016-12-20] MEDS: HUMULIN R SUBQ SCH ×7 (00:07→23:34)
[2016-12-20] MEDS: VANCOMYCIN 1,800 MG in NS 250 ML IV SCH (00:09)
[2016-12-20] MEDS: DILAUDID IV PRN ×3 (03:10→22:46)
[2016-12-20] MEDS: LEVOPHED 8 MG in D5 1/2 NS 250 ML IV SCH ×3 (03:11→22:48)
[2016-12-20] MEDS: DUONEB (A & A) INH SCH ×4 (03:32→21:25)
[2016-12-20 04:40] LABS: BASO% 0.1 % (0.0-0.8); EOS# 0.14 X1000 (0.0-0.7); EOS% 0.8 % (0.0-10.0); HEMATOCRIT 25.8 % (42.0-52.0); HEMOGLOBIN 8.4 g/dL (14.0-18.0); IMM GRAN# 0.11 X1000 (0.0-0.04); IMM GRAN% 0.7 % (0.0-0.5); LYMPH# 1.04 X1000 (1.2-3.4); LYMPH% 6.2 % (20.5-51.1); MANUAL DIFF NEEDED? YES; MCH 29.3 PG (27-31); MCHC 32.6 g/dL (33-37); MCV 89.9 FL (81-99); MONO# 0.61 X1000 (0.11-0.59); MONO% 3.6 % (1.7-9.3); MPV 10.9 FL (7.4-10.4); NEUT% 88.6 % (42.2-75.2); PLT 226 X1000 (130-400); RBC 2.87 XMIL (4.7-6.1)
[2016-12-20] MEDS: ZOSYN 3.375 GM/NS 50 ML IV SCH ×4 (05:03→23:32)
[2016-12-20 05:08] LABS: AGAP 13; BUN 50 mg/dL (8-22); CALCIUM 7.8 mg/dL (8.8-10.2); CHLORIDE 105 mmol/L (98-107); COSMO 302; POTASSIUM 3.3 mmol/L (3.5-5.1); SODIUM 144 mmol/L (136-145); TCO2 26 mmol/L (25-35)
[2016-12-20] MEDS: SYNTHROID IV SCH (06:30)
[2016-12-20] MEDS: XANAX PO SCH ×2 (08:48→20:09)
--- NOTE | 2016-12-20 09:06 | Diag Imaging Result Document ---
PROCEDURE NAME: CHEST-PORTABLE - 12/20/2016 PORTABLE CHEST X-RAY, 12/20/2016: COMPARISON: 12/18/2016. FINDINGS: There is a nasogastric tube in good position. Stable right PICC line in good position. Stable severe right hemidiaphragm elevation. Stable bibasilar infiltrates, right greater than left. Stable significant cardiomegaly. IMPRESSION: No change from prior.
[2016-12-20] MEDS: POTASSIUM CHLORIDE 10% LIQUID PO SCH (09:39)
--- NOTE | 2016-12-20 10:02 | PROGRESS NOTE ---
DATE: 12/20/2016 Mr. Yost is in about the same general condition. This morning, we had to step up on his Levophed 50 a day. He is also on IV Cardizem drip. His abdomen is still distended. He is alert. He moves his upper extremities with power grade 3-4. However, lower extremities, he does not move them. He has footdrop. He is hypotonic. Abdomen is distended with scanty bowel sounds. Lungs sound congested at the bases. Heart rate is around 105-110, irregular. Overall prognosis is poor. Hemoglobin has dropped to 8.4, white count is 16.91. His electrolytes revealed potassium of 3.3. The rest of the values are really basically unchanged. We will continue with the current management on him.
[2016-12-20] MEDS: D5 1/2 NS 1,000 ML IV SCH ×2 (12:20→19:11)
--- NOTE | 2016-12-20 13:44 | PROGRESS NOTE ---
DATE: 12/20/2016 SUBJECTIVE: Patient states he may be doing a little better. He does report some abdominal pain. OBJECTIVE: He is currently eating a clear liquid diet with help from the nurse tech. He still has an NG tube in place to low intermittent suction. Abdomen still distended with hypoactive bowel sounds. He reports having a loose stool yesterday .he is still having some old blood noted per I and O reports.Vital Signs: Temperature 98.6 degrees, pulse 93, respirations 22, blood pressure 95/54. LABORATORY: Hematology. White count 16.91, hemoglobin 8.4, hematocrit 25.8, MCV 89.9, platelets 226,000. Chemistry. Sodium 144, potassium 3.3, chloride 105, CO2 26, BUN 50, creatinine 1.2, glucose 124. ASSESSMENT AND PLAN: 1. Colitis. 2. Rectal bleeding. Improving. 3. Anemia. Continue to monitor hemoglobin, hematocrit and transfuse packed red blood cells as needed. 4. Abdominal distention. Continue NG to low intermittent suction. He is having some liquid stools with some blood noted. 5. Hypotension. He continues to be on vasopressors. Will continue to follow. I will discuss the plan with Dr. Hoover. Further plans will be made as needed. Dictated by BERLIN Novoa for Adrian Hoover MD
[2016-12-20] MEDS: CARDIZEM 100 MG/NS 100 ML IV SCH (13:57)
[2016-12-20] MEDS: CLINIMIX E 4.25%-5% SOLUTION 1,000 ML IV SCH (17:37)
[2016-12-20 18:29] LABS: URINE SOURCE CATH
[2016-12-20 18:35] LABS: BILIRUBIN URINE NEGATIVE (NEGATIVE); BLOOD URINE MODERATE (NEGATIVE); COLOR ORANGE; GLUCOSE URINE 100 mg/dL (NEGATIVE); LEUKOCYTES URINE MODERATE (NEGATIVE); NITRITE URINE NEGATIVE (NEGATIVE); PH URINE 5.5; PROTEIN URINE 70 mg/dL (NEGATIVE); SP GRAVITY URINE 1.017; TURBIDITY URINE HAZY (CLEAR); UROBILINOGEN URINE NORMAL (NORMAL)
[2016-12-20 18:47] LABS: UR EPITHELIAL CELLS <10 /HPF (<10); URINE BACTERIA NEGATIVE /HPF; URINE MICRO REVIEW NEEDED? YES; URINE RBC TNTC /HPF (<10)
[2016-12-20 19:02] LABS: URINE CRYSTALS CA OXALATE PRESENT
[2016-12-20 19:03] LABS: URINE CASTS GRANULAR PRESENT
[2016-12-20] MEDS: MILK OF MAGNESIA PO SCH (20:09)
[2016-12-20] MEDS: SODIUM CHLORIDE 0.9% INJ SCH (20:09)
[2016-12-20] MEDS: PROTONIX IV SCH (20:09)
--- NOTE | 2016-12-20 20:11 | PROGRESS NOTE ---
DATE: 12/20/2016 PRESENT ILLNESS: The patient has a mild leukocytosis. He also has bibasilar infiltrates that could be pneumonia and finally his abdomen still remains distended although not as much as it was last week. MEDICATIONS: Patient is receiving vancomycin for the 5th day and Zosyn for the 3rd day. PHYSICAL EXAMINATION: Vital Signs: Temperature is 97.4 degrees, pulse 93, respirations 24, blood pressure 96/52. General: This is an ill-appearing middle-aged male. He appears to be in some sort of delirium, he does not respond to verbal stimuli. He did not move any of his extremities during my exam. Neck: No meningismus. Lungs: Clear to auscultation. Cardiovascular: Regular heart rate. Abdomen: Is somewhat distended but less so than it was last week. It did not appear to be tender. LAB AND X-RAY: Chest x-ray shows bibasilar infiltrates. CBC shows a white count of 16,910, hemoglobin 8.4 and platelet count of 226,000. Creatinine is 1.2. GFR is greater than 60. Urine is growing yeast. ASSESSMENT AND PLAN: Patient has leukocytosis with possible bilateral pneumonia. My plan would be to continue treatment with vancomycin and Zosyn. Patient does have repeated urines positive for yeast. I will go ahead and repeat the patient's urine culture to see if the yeast in it still persisted. COMORBIDITIES: Include chronic obstructive pulmonary disease and ileus.
[2016-12-21] MEDS: HALDOL IV PRN (02:17)
[2016-12-21] MEDS: DUONEB (A & A) INH SCH ×4 (03:24→19:45)
[2016-12-21] MEDS: DILAUDID IV PRN ×3 (04:16→18:24)
[2016-12-21] MEDS: HUMULIN R SUBQ SCH ×5 (04:16→19:47)
[2016-12-21] MEDS: ZOSYN 3.375 GM/NS 50 ML IV SCH ×4 (04:16→22:23)
[2016-12-21] MEDS: SYNTHROID IV SCH (06:24)
[2016-12-21 07:28] LABS: AGAP 11; BUN 42 mg/dL (8-22); CALCIUM 7.9 mg/dL (8.8-10.2); CHLORIDE 106 mmol/L (98-107); COSMO 298; LIPASE 63 U/L (13-60); POTASSIUM 3.6 mmol/L (3.5-5.1); SODIUM 143 mmol/L (136-145); TCO2 26 mmol/L (25-35)
--- NOTE | 2016-12-21 07:47 | Diag Imaging Result Document ---
PROCEDURE NAME: CHEST-1 VIEW - 12/21/2016 PORTABLE CHEST X-RAY: COMPARISON: 12/20/2016. FINDINGS: Stable nasogastric tube and right PICC line. Stable cardiomegaly and pulmonary vascular congestion. Stable bibasilar infiltrates. Stable apparent right hemidiaphragm elevation. No new infiltrates. IMPRESSION: No change from prior.
--- NOTE | 2016-12-21 07:47 | Diag Imaging Result Document ---
PROCEDURE NAME: JESICA ABDOMEN - 12/21/2016 ABDOMEN: COMPARISON: 12/14/2016. FINDINGS: There is worsening, severe, gas dilation of much of the small bowel. This is highly concerning for small bowel obstruction. There appears to be a nasogastric tube in the stomach. IMPRESSION: Worsening gaseous distention of the small bowel concerning for small bowel obstruction.
[2016-12-21 07:58] LABS: BASO% 0.1 % (0.0-0.8); EOS# 0.15 X1000 (0.0-0.7); HEMATOCRIT 26.7 % (42.0-52.0); HEMOGLOBIN 8.2 g/dL (14.0-18.0); IMM GRAN# 0.06 X1000 (0.0-0.04); IMM GRAN% 0.4 % (0.0-0.5); LYMPH# 1.25 X1000 (1.2-3.4); LYMPH% 8.1 % (20.5-51.1); MANUAL DIFF NEEDED? YES; MCH 27.7 PG (27-31); MCHC 30.7 g/dL (33-37); MCV 90.2 FL (81-99); MONO# 0.77 X1000 (0.11-0.59); MPV 11.4 FL (7.4-10.4); NEUT% 85.4 % (42.2-75.2); PLT 259 X1000 (130-400); RBC 2.96 XMIL (4.7-6.1)
[2016-12-21 08:27] LABS: BANDS 12 % (0-1); LYMPHS 14 % (21-51); MONO 4 % (1-9)
[2016-12-21] MEDS: LEVOPHED 8 MG in D5 1/2 NS 250 ML IV SCH ×2 (08:33→18:08)
[2016-12-21] MEDS: CARDIZEM 100 MG/NS 100 ML IV SCH (08:34)
[2016-12-21] MEDS: POTASSIUM CHLORIDE 10% LIQUID PO SCH (08:34)
[2016-12-21] MEDS: XANAX PO SCH ×2 (08:35→21:39)
--- NOTE | 2016-12-21 09:42 | PROGRESS NOTE ---
DATE: 12/21/2016 SUBJECTIVE: Mr. Yost's vital signs are stable except that temperature is 99.3 degrees. Pulse 111. In atrial fibrillation. His respiratory rate is 34. Blood pressure is 114/64, maintained by Levophed. He is also on Cardizem IV drip. His lab data reveals white count has gradually been coming down; its down to 15.43, hemoglobin is 8.2; it is slowly going down. His electrolytes are stable and BUN has come down to 42, creatinine 1.2. Amylase was 252. His medications currently include, as mentioned before, IV diltiazem, D5 W 250 mL, Clinimix, levothyroxine, Synthroid IV, pantoprazole IV, breathing treatment, pipacycline and vancomycin. OBJECTIVE: We will try IV Reglan to see if we can help the abdominal bloating. His abdomen is still very distended. Overall condition is poor. We are going to ask [facility] to evaluate him for intermission coordinator care.
[2016-12-21] MEDS: REGLAN IV SCH ×3 (09:59→21:38)
[2016-12-21] MEDS ORDERED: MILK OF MAGNESIA PO ONE (11:15)
--- NOTE | 2016-12-21 12:11 | PROGRESS NOTE ---
DATE: 12/21/2016 SUBJECTIVE: Patient states he is having some abdominal pain. OBJECTIVE: Respiratory: Lung sounds decreased. Cardiovascular: Atrial fibrillation. He is on Levophed and Cardizem drip. Abdomen: Seems more distended today. There are bowel sounds. Abdomen is tight. He does have an NG tube to low intermittent suction. He has not had a bowel movement since the per documentation. Vital signs: Temperature 97.9 degrees, pulse 103, respirations 26, blood pressure 113/64. LABORATORY: Hematology count 15.43, hemoglobin 8.2, hematocrit 26.7, MCV 90.2, platelets 259,000. Chemistry: Sodium 143, potassium 3.6, chloride 106, CO2 26, BUN 42, creatinine 1.2, glucose 152. ASSESSMENT: Colitis with rectal bleeding. Colonoscopy was done on 12/16/2016 with findings of ulcer at the rectosigmoid junction and diverticulosis. Pathology showed active proctitis. PLAN: Continue supportive care. Dr. Aviles has ordered Reglan to see if that helps with his abdominal distention. Will also give an extra dose of milk of magnesia today. We will continue to follow and further plans will be made as needed. I have discussed this case with Dr. Hoover. Dictated by BERLIN Novoa for Adrian Hoover MD
[2016-12-21] MEDS: CLINIMIX E 4.25%-5% SOLUTION 1,000 ML IV SCH (14:00)
[2016-12-21] MEDS: VANCOMYCIN 1,800 MG in NS 250 ML IV SCH (15:26)
[2016-12-21] MEDS: D5 1/2 NS 1,000 ML IV SCH ×2 (15:26→23:19)
--- NOTE | 2016-12-21 18:27 | PROGRESS NOTE ---
DATE: 12/21/2016 PRESENT ILLNESS: The patient has a resolving leukocytosis although his white count is still elevated a little bit. He has bibasilar infiltrates that could be due to pneumonia. Unfortunately, his abdomen still seems to be very bloated and today it looks worse to me than it did yesterday. MEDICATIONS: This is the sixth day of treatment with vancomycin and the 4th day of treatment with Zosyn. PHYSICAL EXAMINATION: Vital Signs: Temperature is 99.3 degrees, pulse 110, respirations 36 and blood pressure 117/61. General: This is an ill-appearing middle-aged male who is in no acute distress. Lungs: Clear to auscultation. Cardiovascular: Regular heart rate. Abdomen: Very protuberant. I do not hear any bowel sounds. The abdomen is non tender. Neurologic: Patient is lethargic. He did respond to verbal stimuli and he could move his extremities LAB AND X-RAY: The creatinine is 1.2. The GFR is greater than 60. Blood and urine cultures are sterile. [place] [address], hemoglobin 8.2 and platelet count of 259,000. Patient's creatinine is 1.2. GFR is greater than 60. Blood and urine cultures are sterile thus far. ASSESSMENT AND PLAN: The plan to continue with the patient's antibiotics. The treatment is intended for a probable basilar pneumonia and for the patient's leukocytosis. His comorbidities include the following: chronic obstructive pulmonary disease and ileus versus a bowel obstruction. MTDD
[2016-12-21] MEDS: PROTONIX IV SCH (19:47)
[2016-12-21] MEDS: SODIUM CHLORIDE 0.9% INJ SCH (19:47)
[2016-12-21] MEDS: MILK OF MAGNESIA PO SCH (21:38)
[2016-12-22] MEDS: HUMULIN R SUBQ SCH ×6 (01:47→20:27)
[2016-12-22] MEDS: DUONEB (A & A) INH SCH ×5 (02:57→19:20)
[2016-12-22] MEDS: DILAUDID IV PRN ×3 (03:35→21:01)
[2016-12-22] MEDS: REGLAN IV SCH ×4 (03:35→21:02)
[2016-12-22] MEDS: ZOSYN 3.375 GM/NS 50 ML IV SCH ×4 (04:26→21:09)
[2016-12-22 04:38] LABS: ALLEN TEST YES; BE 0.9 mmoll (-3.0-3.0); BLOOD TYPE ARTERIAL; DRAW SITE R RADIAL; METHB 1.7 % (0.0-1.5); O2(CT) 10.1 mL/dL (15.0-23.0); PCO2(98.6) 37 mmHg (35-45); PO2(98.6) 63 mmHg (60-100); SAMPLE BLOOD; THB 7.8 g/dL (11.5-17.4); pH(98.6) 7.44 (7.35-7.45)
[2016-12-22 04:41] LABS: MODALITY CANNULA
[2016-12-22 05:03] LABS: HEMATOCRIT 24.3 % (42.0-52.0); HEMOGLOBIN 7.5 g/dL (14.0-18.0); MCHC 30.9 g/dL (33-37); MCV 90.7 FL (81-99); MPV 11.8 FL (7.4-10.4); RBC 2.68 XMIL (4.7-6.1)
[2016-12-22] MEDS: LEVOPHED 8 MG in D5 1/2 NS 250 ML IV SCH ×3 (05:41→23:05)
[2016-12-22] MEDS: SYNTHROID IV SCH (06:06)
[2016-12-22 06:25] LABS: ALBUMIN 1.5 g/dL (3.5-5.0); CALCIUM 7.6 mg/dL (8.8-10.2); MAGNESIUM 2.2 mg/dL (1.5-2.7); POTASSIUM 3.3 mmol/L (3.5-5.1); TOTAL BILIRUBIN 0.37 mg/dL (0.20-1.00); TOTAL PROTEIN 4.9 g/dL (6.3-8.3)
--- NOTE | 2016-12-22 07:44 | Diag Imaging Result Document ---
PROCEDURE NAME: CHEST-PORTABLE - 12/22/2016 AP PORTABLE CHEST AT 0500 HOURS: FINDINGS: There is cardiomegaly. There is atelectasis or pneumonia in both lower lobes. The possibility of mild pulmonary edema cannot be excluded. Compared to the previous study of 12/21/2016, there may be slightly worsened opacification in the left lower lobe. Otherwise, there has been no significant change. IMPRESSION: Cardiomegaly and bibasilar atelectasis +/- pulmonary edema.
[2016-12-22] MEDS: CARDIZEM 100 MG/NS 100 ML IV SCH (08:17)
--- NOTE | 2016-12-22 08:43 | Diag Imaging Result Document ---
PROCEDURE NAME: CT ABD/PELVIS ORAL CONTR ONLY - 12/22/2016 CT ABDOMEN AND PELVIS: COMPARISON: 12/15/2016. FINDINGS: There has been slight increase in the size of the largest right perinephric fluid collection. This is the inferior, posterior collection. This previously measured about 6.3 x 8.6 cm; it now measures 7.4 x 9.6 cm. There is also slight increase in the subperitoneal fluid collection at the lateral right lower quadrants. This now measures about 5.9 x 4.9 cm. There is worsening flank edema. There are some stable densities in the left renal collecting system compatible with stones. No hydronephrosis or hydroureter. Stable gallbladder with the tip in the stomach. There is grossly stable, diffuse dilation of the colon with gas and fluid suggesting ileus. No significant formed stool. There is some worsening mild dilation of small bowel with fluid as well. There is slight worsening infiltrate in the right middle lobe, with some grossly stable right lower lobe consolidation and stable patchy infiltrate in the left lung base. There is also hazy ground-glass interstitial opacity compatible with interstitial pulmonary edema. There is stable perihepatic free fluid. Stable cardiomegaly. Anemia is present. There has likely been prior lateral wall left ventricle infarction. This is also stable. IMPRESSION: 1. Slight increase in right perinephric and right lower quadrant fluid collections. 2. Slight worsening small bowel ileus. Stable severe colonic ileus. 3. Worsening pulmonary edema and infiltrates in the lung bases.
--- NOTE | 2016-12-22 09:20 | PROGRESS NOTE ---
DATE: 12/22/2016 SUBJECTIVE: Mr. Yost is not doing well. His abdomen is still distended. He had a large bowel movement; however, he is on NG tube suction now. Overall condition is getting worse. CT scan of the abdomen and pelvis shows increasing small bowel and large intestinal ileus. He also has bilateral infiltrates, which are getting worse with some pleural effusions. Overall condition has gone down. He is on IV Cardizem, as well as IV Levophed, CliniMix, and IV antibiotics. PROGNOSIS: Overall prognosis is very poor. Family understands it. We tried to get him evaluated for The consultation has not been done yet.
[2016-12-22] MEDS: CLINIMIX E 4.25%-5% SOLUTION 1,000 ML IV SCH (09:35)
[2016-12-22] MEDS: POTASSIUM CHLORIDE 10% LIQUID PO SCH (09:35)
[2016-12-22] MEDS: XANAX PO SCH ×2 (09:36→20:29)
[2016-12-22] MEDS ORDERED: D10W 1,000 ML IV SCH (13:30)
--- NOTE | 2016-12-22 14:35 | PROGRESS NOTE ---
DATE: 12/22/2016 PRESENT ILLNESS: The patient's white count has been stable. The patient has a distended abdomen due to ileus or possibly obstruction. He also has bibasilar infiltrates that could be due to pneumonia. MEDICATIONS: This is day 7 of treatment with vancomycin and day 5 of treatment with Zosyn. PHYSICAL EXAMINATION: Vital Signs: Temperature is 97.4 degrees, pulse 87, respirations 23, blood pressure 107/52. General: This is an ill-appearing middle-aged male. He is in no acute distress. He is lethargic now. Lungs: Clear to auscultation. Cardiovascular: Regular heart rate. Abdomen: Distended, soft, and it does not have any bowel sounds. LABORATORY AND X-RAY: Chest x-ray shows bibasilar infiltrates versus atelectasis. CT scan shows worsening of the intra-abdominal fluid collection, worsening of the bowel ileus, and also worsening of pulmonary edema with infiltrates. The patient's blood gases show a pH of 7.44, pO2 of 63, pCO2 of 37. Creatinine is 1.3. GFR is 57. The alkaline phosphatase is 319. ASSESSMENT AND PLAN: For now, I plan to continue the patient's antibiotics, treating probable pneumonia. Whether the patient has intra-abdominal infection is uncertain to me at this time. His leukocytosis is stable. Patient's comorbidities include chronic obstructive pulmonary disease, and ileus versus bowel obstruction.
--- NOTE | 2016-12-22 14:37 | PROGRESS NOTE ---
DATE: 12/22/2016 SUBJECTIVE: The patient is resting. He arouses easily. He still complains of some abdominal tenderness. OBJECTIVE: Abdomen: Abdomen is still distended. He did have a large bowel movement reported by the nurse. He received milk of magnesia extra dose yesterday along with being started on Reglan. He still has nasogastric tube to low intermittent suction. Per nurse report, he has had about 200 mL out over the last 8 hours. He had repeat abdominal and pelvis CT scan that showed increase in perinephric and right lower quadrant fluid collection, slight worsening small bowel ileus, stable severe colonic ileus, worsening pulmonary edema and infiltrates in the lung base. He does have some positive bowel sounds. NG tube to low intermittent suction. Vital Signs: Temperature 97.4 degrees, pulse 87, respirations 23 blood pressure 107/52. LABORATORY: Hematology: White count 16.29, hemoglobin 7.5, hematocrit 24.3, MCV 90.7. Chemistry: Sodium 138, potassium 3.4, chloride 103, CO2 22, BUN 42, creatinine 1.3, glucose 117. ASSESSMENT AND PLAN: 1. Ileus. 2. Abdominal distention. 3. History of colitis with rectal bleeding. PLAN: Continue supportive care. Continue Reglan and milk of magnesia daily. Continue NG tube to low intermittent suction. We are holding liquids for now due to his continued distention and ileus. He has been started on Clinimix. I have discussed this case with Dr. Hoover. We will continue to follow. Dictated by BERLIN Novoa for Adrian Hoover MD
[2016-12-22] MEDS ORDERED: TPN ELECTROLYTES 20 ML, MAGNESIUM SULFATE 5 MEQ, POTASSIUM CHLORIDE 20 MEQ, M.V.I.-12 1... IV SCH ×8 (15:00)
[2016-12-22] MEDS: LIPOSYN 20% 500 ML IV SCH (16:41)
--- NOTE | 2016-12-22 16:47 | PALLIATIVE CARE CONSULTATION ---
DATE: 12/22/2016 REQUESTING PHYSICIAN: Kiko Aviles MD. REASON FOR CONSULTATION: Goals of care. HISTORY OF PRESENT ILLNESS: This is a 61-year-old, male with severe ischemic cardiomyopathy with an ejection fraction of 25%, coronary artery disease, hypertension, gastroesophageal reflux disease, chronic renal insufficiency, diabetes mellitus, dyslipidemia, paroxysmal atrial fibrillation, chronic back pain, anxiety, depressive disorder, hypothyroidism and multiple admissions related to his congestive heart failure. He was most recently admitted on 11/14/2016 after presenting to the ED with complaints of severe shortness of breath and cough. While in the ED, it was found that he had an elevated white count, anemia and renal failure. Chest x-ray revealed pulmonary edema. It was at that time that he was admitted for further evaluation. During the course of this admission, he developed chest pain, diaphoresis, shortness of breath and bradycardia. He became obtunded and required transfer to the ICU and intubation. He is also being followed by GI for an ileus and significant abdominal distention. Currently, he is lying in the hospital bed. He has been extubated and receiving oxygen via nasal cannula. He appears drowsy and is confused and awake. His daughter is at the bedside. The palliative care team has been consulted to assist with goals of care. REVIEW OF SYSTEMS: Unable to review. PAST MEDICAL HISTORY: See HPI. PAST SURGICAL HISTORY: 1. Coronary artery bypass grafting in October 2013, that was complicated by an LAD dissection. 2. Appendectomy. SOCIAL HISTORY: Alcohol, tobacco and drug use have been denied. FAMILY HISTORY: Positive for hypertension, lung cancer and coronary artery disease. PHYSICAL EXAMINATION: General: This is a chronically ill-appearing, 61-year-old male who does not appear to be in any acute distress. HEENT: Atraumatic, normocephalic. Neck: Supple. Cardiovascular: Rate regular rhythm. Pulmonary: Increased respiratory rate. Scattered rhonchi auscultated throughout. Abdomen: Greatly distended. Extremities: 2+ pitting edema noted to bilateral lower extremities up to bilateral thigh. Pulses are palpable. Neuro: He is lethargic. He does not follow commands. IMPRESSION: This is a 61-year-old, chronically ill-appearing, male with a past medical history as listed above. PLAN: I met with Mr. Yost's daughter, Yudy Yost, to discuss Mr. Yost's goals of care. She states that the plan is to discharge to the LTAC facility in [place]. We discussed Mr. Yost's current state of health and his poor prognosis. She states that she understands his poor prognosis, but she is hoping for a miracle. We discussed the likelihood of Mr. Yost returning to his baseline functional status. Ms. Yost had questions regarding hospice services and those questions were answered. She states that her sister, who lives in [place], is planning to travel to [place] due to their father's poor prognosis. I offered to meet with her and her sister if she arrives before his discharge to LTAC to have further conversation regarding goals of care. Mr. Yost is a full code. She had questions regarding DNR status. However, she has kept him at a full code. The palliative care team will continue to follow daily until discharge. Thank you for this consultation. Dictated by BERLIN Zee for Kendall Hare MD
[2016-12-22] MEDS: ALBUMIN 25% IV SCH ×2 (19:07→19:42)
[2016-12-22] MEDS: SODIUM CHLORIDE 0.9% INJ SCH (19:34)
[2016-12-22] MEDS: PROTONIX IV SCH (19:34)
[2016-12-22] MEDS: LASIX IV SCH (19:34)
[2016-12-22] MEDS: MILK OF MAGNESIA PO SCH (20:28)
[2016-12-23] MEDS: ALBUMIN 25% IV SCH (02:54)
[2016-12-23] MEDS: HUMULIN R SUBQ SCH ×7 (02:55→23:24)
[2016-12-23] MEDS: VANCOMYCIN 1,800 MG in NS 250 ML IV SCH (02:57)
[2016-12-23] MEDS: LASIX IV SCH (03:01)
[2016-12-23] MEDS: DILAUDID IV PRN ×4 (03:06→23:56)
[2016-12-23] MEDS: REGLAN IV SCH ×4 (04:00→21:56)
[2016-12-23] MEDS: ZOSYN 3.375 GM/NS 50 ML IV SCH ×4 (04:00→21:56)
[2016-12-23] MEDS: SYNTHROID IV SCH (06:23)
[2016-12-23 07:30] LABS: MAGNESIUM 2.4 mg/dL (1.5-2.7); POTASSIUM 3.2 mmol/L (3.5-5.1)
[2016-12-23] MEDS: CARDIZEM 100 MG/NS 100 ML IV SCH (07:32)
--- NOTE | 2016-12-23 08:45 | PROGRESS NOTE ---
DATE: 12/23/2016 SUBJECTIVE: The patient still complains of some abdominal tightness and distention. Reports some abdominal pain. OBJECTIVE: Vital Signs: Temperature 98.4 degrees, pulse 95, respirations 25, blood pressure 105/61. General: Patient is awake and alert. No acute distress. Respiratory: Lung sounds essentially clear bilaterally. Abdomen: Still distended. May be a little softer today. Hypoactive bowel sounds. NG to low intermittent suction. LABORATORY: Hematology on 12/22/2016: White blood cell count 16.29, hemoglobin 7.5, hematocrit 24.3, MCV 90.7, platelets 259. Chemistry on 12/23/2016: Sodium 142, potassium 3.2, chloride 105, CO2 26, BUN 43, creatinine 1.5, glucose 177. ASSESSMENT: 1. Abdominal distention. 2. Ileus. 3. Colitis. PLAN: Continue supportive care. He has had several good bowel movements per nurse report. We will continue milk of magnesia daily and Reglan. Continue NG to low intermittent suction. He is now receiving Clinimix and continue that. GI will continue to be available as needed. Dictated by BERLIN Novoa for Adrian Hoover MD
--- NOTE | 2016-12-23 09:40 | PROGRESS NOTE ---
DATE: 12/23/2016 SUBJECTIVE: Mr. Yost continues to be dependent on the Levophed, as well as Cardizem. The Levophed has been reduced some. OBJECTIVE: His vital signs are stable. Blood pressure is around 92/60. Heart rate around 107. He has been in atrial fibrillation. His abdomen is still distended. He is somewhat drowsy at the present time. He stayed awake all night. ASSESSMENT AND PLAN: Has bilateral pneumonia. His overall prognosis is poor. We had a palliative consult and Dr. Hare discussed his status with his daughter also. We also had a consultation with LTAC for a long-term acute care and LTAC personnel are here to visit him today and evaluate him for possible transfer. LAB DATA: Revealed yesterday his white count was 16.29. Electrolytes today revealed a potassium again of 3.2, BUN 43, creatinine 1.5. He is on parenteral nutrition with intralipid's now. OVERALL PROGNOSIS: Is unchanged.
[2016-12-23] MEDS: DUONEB (A & A) INH SCH ×4 (09:45→19:06)
[2016-12-23] MEDS: XANAX PO SCH ×2 (09:51→20:08)
[2016-12-23] MEDS: POTASSIUM CHLORIDE 10% LIQUID PO SCH (09:51)
[2016-12-23] MEDS: LEVOPHED 8 MG in D5 1/2 NS 250 ML IV SCH (15:12)
[2016-12-23] MEDS: LIPOSYN 20% 500 ML IV SCH (15:28)
[2016-12-23] MEDS: TPN ELECTROLYTES 20 ML, MAGNESIUM SULFATE 5 MEQ, POTASSIUM CHLORIDE 25 MEQ, M.V.I.-12 1... IV SCH ×8 (15:29)
[2016-12-23] MEDS: LIPOSYN 20% 250 ML IV SCH (15:30)
[2016-12-23] MEDS: PROTONIX IV SCH (20:08)
[2016-12-23] MEDS: SODIUM CHLORIDE 0.9% INJ SCH (20:08)
[2016-12-23] MEDS: MILK OF MAGNESIA PO SCH (20:08)
[2016-12-24] MEDS: CARDIZEM 100 MG/NS 100 ML IV SCH ×2 (02:44→17:41)
[2016-12-24] MEDS: DUONEB (A & A) INH SCH ×4 (03:18→19:04)
[2016-12-24] MEDS: REGLAN IV SCH ×4 (03:55→22:43)
[2016-12-24] MEDS: ZOSYN 3.375 GM/NS 50 ML IV SCH ×4 (03:55→22:44)
[2016-12-24] MEDS: DILAUDID IV PRN ×3 (04:21→19:30)
[2016-12-24] MEDS: HUMULIN R SUBQ SCH ×6 (04:21→23:14)
[2016-12-24 04:43] LABS: CALCIUM 8.3 mg/dL (8.8-10.2); MAGNESIUM 2.4 mg/dL (1.5-2.7); POTASSIUM 3.2 mmol/L (3.5-5.1)
[2016-12-24 04:45] LABS: ALLEN TEST YES; BE 3.2 mmoll (-3.0-3.0); BLOOD TYPE ARTERIAL; DRAW SITE R RADIAL; METHB 1.8 % (0.0-1.5); O2(CT) 13.5 mL/dL (15.0-23.0); PCO2(98.6) 42 mmHg (35-45); PO2(98.6) 60 mmHg (60-100); SAMPLE BLOOD; SAO2 94.3 % (95.0-100.0); THB 10.6 g/dL (11.5-17.4); pH(98.6) 7.43 (7.35-7.45)
[2016-12-24 04:46] LABS: MODALITY CANNULA
[2016-12-24 05:14] LABS: PREALBUMIN 3.8 mg/dL (20-40)
[2016-12-24] MEDS ORDERED: VANCOMYCIN 1,800 MG in NS 250 ML IV SCH (06:00)
[2016-12-24] MEDS: SYNTHROID IV SCH (06:23)
--- NOTE | 2016-12-24 07:42 | Diag Imaging Result Document ---
PROCEDURE NAME: CHEST-PORTABLE - 12/24/2016 AP PORTABLE CHEST AT 0535 HOURS: FINDINGS: There is cardiomegaly. There is atelectasis or pneumonia in the right lower lobe. There may be interstitial pulmonary edema generally. The lungs are slightly better expanded than they were on 12/22/2016. IMPRESSION: Cardiomegaly and mild pulmonary edema. Atelectasis versus pneumonia, right lower lobe.
[2016-12-24] MEDS: POTASSIUM CHLORIDE 10% LIQUID PO SCH (09:14)
[2016-12-24] MEDS: XANAX PO SCH ×2 (09:14→22:44)
--- NOTE | 2016-12-24 10:10 | PROGRESS NOTE ---
DATE: 12/24/2016 SUBJECTIVE: Mr. Yost is in about the same general condition. He continues to be on the Levophed and the Cardizem IV. His abdomen is distended. Chest x-ray shows possible pneumonia or pulmonary edema. OBJECTIVE: Vital Signs: His vital signs are stable. Heart rate is around 105. General: Overall condition is unchanged. LABS: CBC shows hemoglobin 7.5; the last CBC was on 12/22/2016. His blood sugar was 194. Blood gases are done today and revealed pH 7.43, pCO2 42 and PO2 is 60. The electrolytes revealed hypokalemia. Potassium is 3.2. PLAN: We are going to order another portable abdomen x-ray at the request of LTAC staff. They will evaluate whether he can be transferred to LTAC or not.
--- NOTE | 2016-12-24 10:35 | Diag Imaging Result Document ---
PROCEDURE NAME: ABDOMEN FLAT/UPRIGHT - 12/24/2016 FLAT AND UPRIGHT ABDOMEN: FINDINGS: There is gas throughout the colon and some dilated small bowel loops. This is slightly improved since the previous study of 12/21/2016. No additional changes have occurred since the previous study. IMPRESSION: Ileus.
--- NOTE | 2016-12-24 12:18 | PROGRESS NOTE ---
DATE: 12/24/2016 PRESENT ILLNESS: The patient is being treated for pneumonia. He also has a markedly distended abdomen due to possible ileus or obstruction. The patient also has had 3 urine cultures in a row that are growing fungus. MEDICATIONS: This is day 9 of treatment with vancomycin and day 7 of treatment with Zosyn. PHYSICAL EXAMINATION: Vital Signs: Temperature is 98.6 degrees, pulse 103, respirations 32, blood pressure 92/52. General: This is an ill-appearing, middle-aged male, who is in no acute distress. Lungs: Clear to auscultation. Cardiovascular: Regular heart rate. Abdomen: Distended. It is not tender. I did not hear any bowel sounds. Neurologic: Patient is lethargic. He did not follow requests to move his extremities. There was no tremor. LAB AND X-RAY: Chest x-ray shows pulmonary edema and a right lower lobe pneumonia. Patient's urinary culture grew yeast in the last 3 specimens. Blood gases showed a pH of 7.43, a PO2 of 60, and a pCO2 of 42. Creatinine is 1.6. GFR is 44. The patient does not have a recent CBC. ASSESSMENT AND PLAN: I plan to continue treating the patient for his pneumonia and fungal urinary tract infection with vancomycin and Zosyn and also Micafungin. The patient's comorbidities include chronic obstructive pulmonary disease and ileus versus bowel obstruction.
--- NOTE | 2016-12-24 12:21 | PROGRESS NOTE ---
DATE: 12/24/2016 SUBJECTIVE: Patient was asking for water. OBJECTIVE: Noted more dyspnea today. Patient is awake and asking for something to drink. Respiratory: Lung sounds essentially clear. Cardiovascular: Sinus tachycardia. Abdomen: Still distended. NG to low intermittent suction. He has some hypoactive bowel sounds. Vital Signs: Temperature 98.6 degrees, pulse 103, respirations 32, blood pressure 92/52, continues to be on Levophed and Cardizem drip. LABORATORY: Hematology from 12/22/2016, WBC 16.29, hemoglobin 7.5, hematocrit 24.3, platelets 259,000. Chemistry 12/24/2016 sodium 145, potassium 3.2, chloride 107, CO2 25, BUN 42, creatinine 1.6. IMAGING: Abdominal x-ray today showing gas throughout the colon and some dilated small-bowel loops that are slightly improved from 12/21/2016. Chest x-ray today showed cardiomegaly and mild pulmonary edema. Atelectasis versus pneumonia right lower lobe. PLAN: Continue supportive care. Continue NG tube. Continue current medications and IV fluids. There is plan for him to be transferred to long-term care facility today. Dictated by BERLIN Novoa for Adrian Hoover MD
[2016-12-24] MEDS: LEVOPHED 8 MG in D5 1/2 NS 250 ML IV SCH (12:33)
[2016-12-24] MEDS: TPN ELECTROLYTES 20 ML, MAGNESIUM SULFATE 5 MEQ, POTASSIUM CHLORIDE 25 MEQ, M.V.I.-12 1... IV SCH ×8 (14:07)
--- NOTE | 2016-12-24 14:18 | DISCHARGE SUMMARY ---
ADMISSION DATE: 11/14/2016 DISCHARGE DATE: 12/24/2016 DISPOSITION: Transferred to LT acute care assisted facility in [place] on 12/24/2016. HISTORY OF PRESENT ILLNESS: Mr. Yost, who is a 61-year-old white gentleman, was admitted with acute respiratory distress with possible pneumonia and congestive heart failure. DIAGNOSTIC DATA: In the hospital, initial chest x-ray revealed the presence of bilateral pulmonary edema plus infiltrates. He had multiple chest x-rays done. His echocardiogram had revealed an estimated ejection fraction of 25% with dilated left ventricle and severely reduced systolic function. There was no pericardial effusion noted. No evidence of aortic stenosis or regurgitation noted. Abdominal and pelvic CT done on 11/23/2016 revealed basilar infiltrates, atelectasis, and cardiomegaly. No inflammation about the pancreas or pancreatic calcifications, cirrhosis, or pseudocysts noted. There was some fecal impaction noted. He had a CT scan of the brain on 11/29/[address] scan of the abdomen done again on 12/10/2016 revealed multiple markedly distended loops of small bowel. Terminal ileum was decompressed and high-grade bowel obstruction versus functional ileus was considered. Bibasilar pulmonary infiltrates were also seen. The CT scan again was repeated on 12/22/2016 and it revealed a slight increase in the right perinephric and right lower quadrant fluid collections, slight worsening of the small bowel ileus, stable severe colonic ileus, worsening of pulmonary edema and infiltrates. The last abdominal x-ray done this morning again revealed gas throughout the colon and dilated small bowel loops, slightly improved from the previous study point. LABORATORY DATA: In the hospital. Initial CBC revealed white count of 13.89. Hemoglobin was 11.1. He had multiple CBCs done with drop in the hemoglobin. He was transfused at 1 point. The final hemoglobin was 7.5. White count was 16.29. That was on 12/22/2016. INR was 1.39. Blood gases were done again on numerous occasions. Initially when he came on, his ABGs revealed pH 7.32, pCO2 of 23, and PO2 was 110. On 11/18/2016, the same date about 4 hours later, his pH went to 7.19. Lactate level was around 2.3. The pCO2 was 38, PO2 was 70. Electrolytes revealed hypokalemia. Potassium was 3.2, BUN 42, creatinine 1.6. Prealbumin level was 3.8, somewhat low. The BUN fluctuated. When he came in, the BUN was 36 and creatinine was 2.5. It went up to around 80. The creatinine has stayed around 2.5. His liver enzymes were normal when he came in. The proBNP was 6781 and troponin levels were 0.17. This was when he came in. He went into acute renal failure. On 11/18/2016, the potassium went to 6.8, glucose was 491, and again his liver enzymes were markedly elevated at that time. He turned very sick on 11/18/2016. AST and ALT as well as alkaline phosphatases were elevated for a short while and then started coming down from 11/20/2016. On that particular date, 11/20/2016, AST was 185, ALT was 514, alkaline phosphatase was 114, bilirubin was normal, and the liver enzymes continued to come down. Amylase had gone up to 645. On 11/30/2016, the liver enzymes were completely normal. His magnesium was 2.4. This was yesterday's electrolytes and revealed a potassium of 3.2, BUN 43, creatinine 1.5. Magnesium was 2.4. Urinalysis was done numerous times and revealed too many RBCs and 10-20 WBCs. COURSE IN THE HOSPITAL: Initially, he was treated for congestive heart failure and pneumonia. He continued to do better; however, suddenly on 11/18/2016 he declined. His blood sugar went up, his potassium went up, and he had acute liver failure as well as acute renal shutdown. Potassium went up. There was quite a deterioration in his health and he was transferred to ICU, where he was kept on the vent. He went into atrial fibrillation, was later on placed on IV Cardizem. IV Levophed and Federico-Synephrine were also given. He had consultations with Dr. Hare, the doctor of nurse anesthesia practice. He also had infectious Disease as well as Cardiology and GI consultations as well as Surgery consultation with Dr. Pizano. He continued to do poorly lately. For last 10 days, he has been stable; however, his abdomen is very distended. He has always been very hypotensive on Levophed and Cardizem for fast heart rate with atrial fibrillation. General condition has gone down. Family wanted a full code and we finally decided to transfer him to long-term acute care in [place]. He will be transferred today. FINAL DIAGNOSES: 1. Bilateral pneumonia. 2. Patient in congestive heart failure. 3. Acute renal failure. 4. The patient also has had bouts of pancreatitis. 5. Acute hepatic insufficiency. 6. Intestinal obstruction. 7. Severe constipation. PROGNOSIS: Prognosis is poor and family understands that.
[2016-12-24] MEDS: LIPOSYN 20% 250 ML IV SCH (15:41)
[2016-12-24 16:37] LABS: MANUAL DIFF NEEDED? NO
[2016-12-24 16:58] LABS: BASO% 0.3 % (0.0-0.8); EOS# 0.09 X1000 (0.0-0.7); EOS% 0.8 % (0.0-10.0); HEMATOCRIT 25.6 % (42.0-52.0); HEMOGLOBIN 7.7 g/dL (14.0-18.0); IMM GRAN# 0.09 X1000 (0.0-0.04); IMM GRAN% 0.8 % (0.0-0.5); LYMPH# 0.94 X1000 (1.2-3.4); LYMPH% 7.9 % (20.5-51.1); MCH 27.2 PG (27-31); MCHC 30.1 g/dL (33-37); MCV 90.5 FL (81-99); MONO% 5.9 % (1.7-9.3); MPV 11.8 FL (7.4-10.4); NEUT% 84.3 % (42.2-75.2); PLT 269 X1000 (130-400); RBC 2.83 XMIL (4.7-6.1)
[2016-12-24] MEDS: PROTONIX IV SCH (19:30)
[2016-12-24] MEDS: SODIUM CHLORIDE 0.9% INJ SCH (19:30)
[2016-12-24] MEDS: MYCAMINE 100 MG in NS 100 ML IV SCH (20:19)
[2016-12-24] MEDS: MILK OF MAGNESIA PO SCH (22:44)
[2016-12-25] MEDS: DILAUDID IV PRN ×5 (00:11→22:01)
[2016-12-25] MEDS: DUONEB (A & A) INH SCH ×4 (02:36→21:40)
[2016-12-25] MEDS: REGLAN IV SCH ×4 (04:05→21:12)
[2016-12-25] MEDS: HUMULIN R SUBQ SCH ×5 (04:05→21:15)
[2016-12-25] MEDS: ZOSYN 3.375 GM/NS 50 ML IV SCH ×4 (04:05→21:12)
[2016-12-25 04:45] LABS: ALLEN TEST YES; BE 3.6 mmoll (-3.0-3.0); BLOOD TYPE ARTERIAL; DRAW SITE R RADIAL; METHB 1.4 % (0.0-1.5); O2(CT) 14.1 mL/dL (15.0-23.0); PCO2(98.6) 47 mmHg (35-45); PO2(98.6) 65 mmHg (60-100); SAMPLE BLOOD; SAO2 95.8 % (95.0-100.0); THB 10.9 g/dL (11.5-17.4)
[2016-12-25 04:47] LABS: MODALITY CANNULA
[2016-12-25 05:20] LABS: CALCIUM 8.1 mg/dL (8.8-10.2); MAGNESIUM 2.6 mg/dL (1.5-2.7); POTASSIUM 3.1 mmol/L (3.5-5.1)
[2016-12-25 05:21] LABS: BASO% 0.2 % (0.0-0.8); EOS% 0.8 % (0.0-10.0); HEMATOCRIT 21.9 % (42.0-52.0); HEMOGLOBIN 6.6 g/dL (14.0-18.0); LYMPH# 1.17 X1000 (1.2-3.4); LYMPH% 9.7 % (20.5-51.1); MANUAL DIFF NEEDED? NO; MCH 27.8 PG (27-31); MCHC 30.1 g/dL (33-37); MCV 92.4 FL (81-99); MONO# 0.84 X1000 (0.11-0.59); MPV 12.1 FL (7.4-10.4); NEUT% 82.3 % (42.2-75.2); PLT 256 X1000 (130-400); RBC 2.37 XMIL (4.7-6.1)
[2016-12-25] MEDS: SYNTHROID IV SCH (06:21)
[2016-12-25] MEDS ORDERED: NS 500 ML IV ONE (08:15)
[2016-12-25] MEDS ORDERED: TYLENOL PO ONE (08:15)
[2016-12-25] MEDS ORDERED: TYLENOL PR ONE (08:15)
[2016-12-25] MEDS ORDERED: LASIX IV ONE (08:20)
--- NOTE | 2016-12-25 08:36 | Diag Imaging Result Document ---
PROCEDURE NAME: CHEST-PORTABLE - 12/25/2016 PORTABLE CHEST: COMPARISON: 12/24/2016. FINDINGS: Nasogastric tube and PICC line remain in place. There has been mild increase in infiltrate or edema on the right. There are no other interval changes identified. There is no pneumothorax seen. There is elevation of the right hemidiaphragm. IMPRESSION: Mild increase in infiltrate or edema on the right.
--- NOTE | 2016-12-25 08:46 | PROGRESS NOTE ---
DATE: 12/25/2016 SUBJECTIVE: The patient is being seen by me in Dr. Aviles's absence. The patient remains in ICU. He was unable to go to long-term care facility yesterday as he had some difficulty. He is generally stable, but in poor condition. OBJECTIVE: Vital Signs: Afebrile, pulse 104, respirations 27, blood pressure 95/50, O2 saturation 94% on 4 liters.
[2016-12-25] MEDS: POTASSIUM CHLORIDE 10% LIQUID PO SCH ×2 (09:02→20:53)
[2016-12-25] MEDS: XANAX PO SCH ×2 (09:02→20:52)
[2016-12-25] MEDS: LEVOPHED 8 MG in D5 1/2 NS 250 ML IV SCH (11:10)
[2016-12-25] MEDS: CARDIZEM 100 MG/NS 100 ML IV SCH (14:10)
[2016-12-25] MEDS: LIPOSYN 20% 500 ML IV SCH (14:45)
[2016-12-25] MEDS: TPN ELECTROLYTES 20 ML, MAGNESIUM SULFATE 5 MEQ, POTASSIUM CHLORIDE 25 MEQ, M.V.I.-12 1... IV SCH ×8 (14:47)
[2016-12-25] MEDS: MILK OF MAGNESIA PO SCH (20:52)
[2016-12-25] MEDS: SODIUM CHLORIDE 0.9% INJ SCH (20:53)
[2016-12-25] MEDS: PROTONIX IV SCH (20:53)
[2016-12-25] MEDS: MYCAMINE 100 MG in NS 100 ML IV SCH (21:12)
[2016-12-26] MEDS: HUMULIN R SUBQ SCH ×3 (01:20→08:06)
[2016-12-26] MEDS: DILAUDID IV PRN ×3 (02:46→11:49)
[2016-12-26] MEDS: ZOSYN 3.375 GM/NS 50 ML IV SCH ×2 (03:05→09:52)
[2016-12-26] MEDS: REGLAN IV SCH ×2 (03:05→09:52)
[2016-12-26] MEDS: DUONEB (A & A) INH SCH ×2 (03:35→09:38)
[2016-12-26 06:00] LABS: ALLEN TEST YES; BE 4.7 mmoll (-3.0-3.0); BLOOD TYPE ARTERIAL; DRAW SITE R RADIAL; PO2(98.6) 76 mmHg (60-100); SAMPLE BLOOD; pH(98.6) 7.39 (7.35-7.45)
[2016-12-26 06:01] LABS: MODALITY CANNULA; PCO2(98.6) 51 mmHg (35-45)
[2016-12-26] MEDS: LEVOPHED 8 MG in D5 1/2 NS 250 ML IV SCH (06:03)
[2016-12-26] MEDS: SYNTHROID IV SCH (06:07)
[2016-12-26 06:57] LABS: CALCIUM 8.5 mg/dL (8.8-10.2); MAGNESIUM 2.8 mg/dL (1.5-2.7); POTASSIUM 3.4 mmol/L (3.5-5.1)
--- NOTE | 2016-12-26 07:05 | Diag Imaging Result Document ---
PROCEDURE NAME: CHEST-PORTABLE - 12/26/2016 PORTABLE CHEST: COMPARISON: Compared to 12/25/2016. FINDINGS: Sternal wires are present. No change in the right-sided PICC line or in the nasogastric tube. The hemidiaphragm is elevated. There are increased interstitial markings throughout both lungs. The infiltrates may be slightly less dense in the right lung compared to the prior study. No pleural effusions identified. IMPRESSION: Questionable mild interval improvement.
[2016-12-26 08:08] LABS: HEMATOCRIT 26.2 % (42.0-52.0); HEMOGLOBIN 8.2 g/dL (14.0-18.0)
[2016-12-26] MEDS: POTASSIUM CHLORIDE 10% LIQUID PO SCH (09:02)
[2016-12-26] MEDS: XANAX PO SCH ×3 (09:02→09:52)
[2016-12-26] MEDS: CARDIZEM 100 MG/NS 100 ML IV SCH (10:45)
[2016-12-26] MEDS: TPN ELECTROLYTES 20 ML, MAGNESIUM SULFATE 5 MEQ, POTASSIUM CHLORIDE 25 MEQ, M.V.I.-12 1... IV SCH ×8 (11:48)
[2016-12-26] MEDS: LIPOSYN 20% 500 ML IV SCH (11:48)
[2016-12-26 13:00] VITALS: BP 93/55
--- NOTE | 2016-12-28 09:34 | DISCHARGE SUMMARY ---
ADMISSION DATE: 11/14/2016 DISCHARGE DATE: 12/26/2016 ADDENDUM: Mr. Yost's hemoglobin had gone down on 12/25/2016. We checked the hemoglobin which was 6.6. He was transfused blood and his hemoglobin came up to 8.2. Hematocrit was 26.2, and the day of discharge, his potassium was 3.4, BUN 48, creatinine 1.8. Chest x-ray showed some improvement. He was transferred to the long-term acute care facility in [place].
== END 2016-12-26 12:12 | DRG 207 ==
LOC: ED 11:19 → 3N 18:59 → ICU 11-18 17:18 → 3N 12-09 22:47 → ICU 12-12 15:31
PROVIDERS: ADMIT Internal Medicine; ATTEND Internal Medicine
PROC: 5A1955Z Respiratory Ventilation, Greater than 96 Consecutive Hours (ICD-10-PCS; principal; 2016-11-18)
PROC: 05H533Z Insertion of Infusion Device into Right Subclavian Vein, Percutaneous Approach (ICD-10-PCS; 2016-11-18)
PROC: 0BH17EZ Insertion of Endotracheal Airway into Trachea, Via Natural or Artificial Opening (ICD-10-PCS; 2016-11-18)
PROC: 0DH67UZ Insertion of Feeding Device into Stomach, Via Natural or Artificial Opening (ICD-10-PCS; 2016-11-22)
PROC: 02HV33Z Insertion of Infusion Device into Superior Vena Cava, Percutaneous Approach (ICD-10-PCS; 2016-11-26)
PROC: 30233N1 Transfusion of Nonautologous Red Blood Cells into Peripheral Vein, Percutaneous Approach (ICD-10-PCS; 2016-12-14)
PROC: 0DBP8ZX Excision of Rectum, Via Natural or Artificial Opening Endoscopic, Diagnostic (ICD-10-PCS; 2016-12-16)
PROC: 3E0436Z Introduction of Nutritional Substance into Central Vein, Percutaneous Approach (ICD-10-PCS; 2016-12-22)
DX: J44.0 Chronic obstructive pulmonary disease with (acute) lower respiratory infection (principal); R65.21 Severe sepsis with septic shock; J96.01 Acute respiratory failure with hypoxia; G62.81 Critical illness polyneuropathy; A41.9 Sepsis, unspecified organism; K56.60 Unspecified intestinal obstruction; I50.23 Acute on chronic systolic (congestive) heart failure; J18.9 Pneumonia, unspecified organism; K85.90 Acute pancreatitis without necrosis or infection, unspecified; N17.9 Acute kidney failure, unspecified; I48.92 Unspecified atrial flutter; B37.49 Other urogenital candidiasis; E87.2 Acidosis; E87.0 Hyperosmolality and hypernatremia; B48.8 Other specified mycoses; K92.1 Melena; R18.8 Other ascites; K63.3 Ulcer of intestine; I48.0 Paroxysmal atrial fibrillation; J44.1 Chronic obstructive pulmonary disease with (acute) exacerbation; I25.5 Ischemic cardiomyopathy; E11.22 Type 2 diabetes mellitus with diabetic chronic kidney disease; E87.5 Hyperkalemia; K72.90 Hepatic failure, unspecified without coma; E86.0 Dehydration; I12.9 Hypertensive chronic kidney disease with stage 1 through stage 4 chronic kidney disease, or unspecified chronic kidney disease; N18.9 Chronic kidney disease, unspecified; R00.1 Bradycardia, unspecified; R68.0 Hypothermia, not associated with low environmental temperature; K56.41 Fecal impaction; D50.0 Iron deficiency anemia secondary to blood loss (chronic); I25.10 Atherosclerotic heart disease of native coronary artery without angina pectoris; E03.9 Hypothyroidism, unspecified; E78.5 Hyperlipidemia, unspecified; K57.30 Diverticulosis of large intestine without perforation or abscess without bleeding; K21.9 Gastro-esophageal reflux disease without esophagitis; G47.30 Sleep apnea, unspecified; F41.0 Panic disorder [episodic paroxysmal anxiety]; F32.9 Major depressive disorder, single episode, unspecified; Z79.899 Other long term (current) drug therapy; Z79.82 Long term (current) use of aspirin; Z95.1 Presence of aortocoronary bypass graft; Z82.49 Family history of ischemic heart disease and other diseases of the circulatory system; Z80.1 Family history of malignant neoplasm of trachea, bronchus and lung
CPT/HCPCS: 31500; 36569; 70450; 71010; 71020; 72080; 74000; 74020; 74022; 74176; 76700; 80048; 80053; 80076; 80202; 81001; 82009; 82150; 82465; 82533; 82550; 82805; 82948; 83605; 83615; 83690; 83735; 83880; 84100; 84134; 84443; 84450; 84478; 84484; 85014; 85018; 85025; 85027; 85610; 85730; 86701; 86850; 86900; 86901; 86920; 87040; 87070; 87088; 87205; 88305; 92950; 93005; 93010; 93306; 93308; 94002; 94003; 94640; 94760; 94761; 94762; 96374; C1725; C9113; J0131; J0461; J0610; J0696; J1170; J1250; J1265; J1630; J1815; J1940; J2185; J2248; J2250; J2370; J2543; J2765; J2920; J2930; J3370; J3475; J3480; J7030; J7040; J7042; J7050; J7070; J7512; P9016; 97110-GP; 97530-GP; P9047; S0164